=== PATIENT | male | born 1970 | race American Indian/Alaskan Native ===

== ENCOUNTER 2017-01-16 14:20 | Inpatient (IN) | payer MEDICARE, MEDICAID ==
[2017-01-16] MEDS ORDERED: Piperacill/Tazo 3.375gm in Dex 50 ML IVPB STA (14:53)
[2017-01-16] MEDS ORDERED: Vancomycin 1 gm/NS 200 ml 200 ML IVPB STA (14:53)
[2017-01-16] MEDS ORDERED: Sodium Chloride 0.9% 500 ML IV ONE (14:57)
--- NOTE | 2017-01-16 15:14 | RAD ---
HISTORY: Sepsis Patient COMPARISON: None available. TECHNIQUE: Chest, one view. FINDINGS: Right-sided PICC appears to terminate near the cavoatrial junction, distal tip is not well-visualized. External wires and leads obscure evaluation of the underlying parenchyma. LUNGS: Thin oblique linear hyperdensity at the level of the right mid lung zone presumed to reflect artifact. No focal consolidation. Please note that chest x-ray has limited sensitivity for the detection of pulmonary masses. PLEURA: No significant pleural effusion identified. No definite pneumothorax . CARDIOVASCULAR: The cardiomediastinal silhouette appears within normal limits of size. OSSEOUS STRUCTURES: No acute osseous abnormality identified. VISUALIZED UPPER ABDOMEN: Unremarkable. OTHER FINDINGS: None. IMPRESSION: Right-sided PICC as above.
[2017-01-16 15:15] LABS: BASO % 0.7 % (0.0-2.0); EOS % 0.2 % (0.0-4.0); HEMATOCRIT 24.6 % (35.0-51.0); LYMPH # 0.7 K/uL (1.0-4.3); LYMPH % 26.9 % (20.0-40.0); MEAN CORPUSCULAR HEMOGLOBIN 27.6 pg (27.0-31.0); MEAN CORPUSCULAR HGB CONC 32.1 g/dL (33.0-37.0); MEAN PLATELET VOLUME 9.4 fL (7.2-11.7); MONO # 0.5 K/uL (0.0-0.8); MONO % 18.4 % (0.0-10.0); NRBC % 0.2 % (0.0-2.0); PLATELET COUNT 62 K/uL (130-400); RED CELL DISTRIBUTION WIDTH 16.9 % (11.5-14.5)
[2017-01-16 15:19] LABS: WHITE BLOOD COUNT 2.5 K/uL (4.8-10.8)
[2017-01-16] MEDS ORDERED: Piperacillin/Tazobact 3.375 gm 100 ML IVPB ONE (15:21)
[2017-01-16 15:25] LABS: POTASSIUM 3.6 mmol/L (3.6-5.2)
[2017-01-16 15:27] LABS: ALB/GLOB RATIO 0.5 (1.0-2.1); BILIRUBIN,TOTAL 1.8 mg/dL (0.2-1.3); TOTAL PROTEIN 6.8 g/dL (6.3-8.3)
[2017-01-16 15:28] LABS: CALCIUM 9.3 mg/dl (8.6-10.4); MAGNESIUM 1.7 mg/dL (1.6-2.3)
[2017-01-16 15:40] LABS: VENOUS BLOOD GAS BASE EXCESS -3.9 mmol/L (0.0-2.0); VENOUS BLOOD GAS PCO2 36 mmHg (40-60); VENOUS BLOOD PH 7.37 (7.32-7.43)
--- NOTE | 2017-01-16 16:53 | C.PDOC ---
History Of Present Illness 46 year old male was sent to the ED from dialysis without information or history except fever and problem with dialysis catheter. Upon arrival pt noted to have a fever of [address] catheter in place. Time Seen by Provider: 01/16/17 14:38 Chief Complaint (Nursing): Altered Mental Status History/Exam Limitations: Clinical Condition Onset/Duration Of Symptoms: Other (unknown) Onset Of Symptoms: Cannot Confirm Onset Current Symptoms Are (Timing): Still Present Associated Symptoms: Fever, Disoriented Past Medical History Reviewed: Historical Data, Nursing Documentation, Vital Signs Vital Signs: Last Vital Signs Temp 100.4 F H 01/16/17 18:39 Pulse 115 H 01/16/17 16:39 Resp 115 H 01/16/17 18:39 BP 123/66 01/16/17 18:39 Pulse Ox 100 01/16/17 18:39 - Medical History PMH: Hepatitis, HTN, End Stage Renal Disease (TTHS) Other PMH: Cath Related Sepsis, Endocarditis Family History: States: Unknown Family Hx Review Of Systems Review Of Systems: ROS cannot be obtained secondary to pt's inabilty to answer questions. Physical Exam - Physical Exam Appears: Chronically Ill Skin: Warm, Dry Oral Mucosa: Dry Cardiovascular: Rhythm Regular, No Murmur Respiratory: No Rales, No Rhonchi, No Wheezing Gastrointestinal/Abdominal: Soft, No Tenderness, No Guarding, No Rebound Male Genital: No Inguinal Tenderness, No Inguinal Swelling, Other (dialysis catheter in right groin) Extremity: Normal ROM, Other (pick line in right antecubital fossa) Disoriented To: Person, Place, Time Other Neurological Findings: Other (no focal findings) ED Course And Treatment - Laboratory Results Result Diagrams: 01/16/17 15:09 01/16/17 15:09 ECG Rhythm: Sinus Tachycardia (118), R BBB O2 Sat by Pulse Oximetry: 97 - Radiology CXR: Interpreted by Me CXR Interpretation: No: Infiltrates Progress Note: Sepsis screening lab ordered, patient cultured, and started on zosyn and vancomycin Medical Decision Making Medical Decision Making: intermediate requested to fax pt records but did not Lactate not elevated, but labs showing pancytopenia Case discussed with dr Kerry Patel (renal) Additional past hx provided, Pt had been given vanco and gent at the end of dialysis after cultures. Dr Jono Munguia is his PCP Case discussed with him admission aranged Disposition - Disposition Disposition: HOSPITALIZED Disposition Time: 17:08 Condition: SERIOUS - Clinical Impression Clinical Impression: Fever, ESRD (end stage renal disease) - Scribe Statement The provider has reviewed the documentation as recorded by the Scribjames Martinez All medical record entries made by the Dianneibjames were at my direction and personally dictated by me. I have reviewed the chart and agree that the record accurately reflects my personal performance of the history, physical exam, medical decision making, and the department course for this patient. I have also personally directed, reviewed, and agree with the discharge instructions and disposition.
[2017-01-16 17:05] LABS: BASOPHIL 1 % (0-2); EOSINOPHIL 1 % (0-4); NEUTROPHIL 52 % (50-75); TOTAL CELLS COUNTED 100
[2017-01-17] MEDS: Piperacillin/Tazobact 3.375 gm 100 ML IVPB SCH ×3 (02:37→17:52)
[2017-01-17] MEDS: Levothyroxine 50 MCG TAB PO SCH (05:52)
[2017-01-17] MEDS: (Novolog) Insulin Aspart, Recombinant 100 u/ml 10 ml vial SC SCH ×4 (08:11→21:32)
--- NOTE | 2017-01-17 09:29 | CP.PCM.HP ---
History of Present Illness - History of Present Illness History of Present Illness: 46-year-old male with history of hepatitis, hypertension and ESRD presented to the ED from HD, complaint of his dialysis catheter being dislodged as per [facility] staff. Patient has slow response time and is a poor historian. The catheter was placed in his right groin in December 2016 and he has experienced no problem with it since its insertion. He currently also has an AV shunting his left arm that was placed in October 2016.Today, though patient is concerned that catheter has been dislodged, he has no complaints of pain, swelling or oozing from the site. Dialysis catheter is in place and functioning, however, stay sutures were draped out. New once were applied, currently catheter is in place by sutures, dressings are c/d/i. Patient does complaints of intense shoulder pain, unrelated to his catheter. Patient denies abdominal pain, fever/chills, nausea and vomiting. Present on Admission - Present on Admission Any Indicators Present on Admission: No Past Patient History - Past Social History Smoking Status: Unknown If Ever Smoked - CARDIAC Hx Hypertension: Yes - ENDOCRINE/METABOLIC Hx Diabetes Mellitus Type 2: Yes - MUSCULOSKELETAL/RHEUMATOLOGICAL Hx Falls: No - PSYCHIATRIC Hx Substance Use: No - SURGICAL HISTORY Other/Comment: RIGHT ARM PICC, RIGHT GROIN PERMA CATH Meds Home Medications: Home Medication List Medication Instructions Recorded Confirmed Type Acetaminophen [Tylenol 325mg tab] 650 mg PO Q6 PRN tab 01/28/17 Rx Ammonium Lactate 12% [Lac-Hydrin 225 gm EXT DAILY bottle 01/28/17 Rx 12% Lotion (225 g)] Docusate [Colace] 100 mg PO BID cap 01/28/17 Rx Epoetin Andrés [Procrit] 20,000 unit IV TTS ml 01/28/17 Rx Famotidine [Pepcid] 20 mg PO BID tab 01/28/17 Rx Ferric Sodium Gluconat Complex 125 mg IVPB TTS vial 01/28/17 Rx [Ferrlecit] Insulin Aspart, Recombinant See Protocol SC ACHS unit 01/28/17 Rx [Novolog] Levothyroxine [Synthroid] 75 mcg PO DAILY@0630 tab 01/28/17 Rx Metoclopramide [Reglan] 10 mg PO Q6H PRN tab 01/28/17 Rx Morphine 2 mg IVP Q4 PRN 01/28/17 Rx Ondansetron [Zofran Inj] 4 mg IVP Q6H PRN vial 01/28/17 Rx Paricalcitol [Zemplar] 2 mcg IV TTS ml 01/28/17 Rx Saccharomyces Boulardi [Florastor] 250 mg PO BID cap 01/28/17 Rx Sucralfate [Carafate Tab] 1 gm PO Q8H tab 01/28/17 Rx Tigecycline [Tygacil] 50 mg IV Q12H vial 01/28/17 Rx Vitamin B Complex/Vit C/Folic 1 tab PO DAILY tab 01/28/17 Rx [Nephro-Vladislav] amLODIPine [Norvasc] 5 mg PO DAILY tab 01/28/17 Rx Allergies/Adverse Reactions: Allergies Allergy/AdvReac Type Severity Reaction Status Date / Time No Known Allergies Allergy Verified 01/16/17 14:31 Results - Vital Signs Recent Vital Signs: Last Vital Signs Temp 98.1 F 01/17/17 08:14 Pulse 101 H 01/17/17 08:14 Resp 20 01/17/17 08:14 BP 137/74 01/17/17 08:14 Pulse Ox 100 01/17/17 08:14 - Labs Result Diagrams: 01/29/17 07:20 01/29/17 07:20 Labs: Laboratory Results - last 24 hr 01/17/17 07:09 POC Glucose (mg/dL) 76 Assessment & Plan (1) Coagulopathy Status: Acute (2) Diabetes Status: Acute (3) Fever Status: Acute (4) HTN (hypertension) Status: Acute (5) Hypothyroidism Status: Acute (6) Pancytopenia Status: Acute (7) Prophylactic measure Status: Acute (8) ESRD (end stage renal disease) Status: Chronic (9) HIV antibody positive Status: Suspected - Assessment and Plan (Free Text) Plan: Consult nephrology Consult ID Continue ST Norvasc Heparin Dilaudid Pipercillin Sod/tazobactam Vancomycin NovoLog Synthroid Protonix
[2017-01-17] MEDS: Saccharomyces Boulardi 250 mg Cap PO SCH ×2 (09:42→17:38)
[2017-01-17] MEDS: Multivitamin Vitamin B Complex (Nephro-Vite) Tab PO SCH (09:42)
[2017-01-17] MEDS: Multiple Vitamins Tab PO SCH (09:43)
[2017-01-17] MEDS: Pantoprazole 40 mg EC Tab PO SCH (09:43)
[2017-01-17] MEDS ORDERED: Lidocaine 1% PF (5ml) Amp INJ ONE (12:00)
--- NOTE | 2017-01-17 12:34 | CP.PCM.CON ---
History of Present Illness - History of Present Illness History of Present Illness: 46 yo male with a history of hepatitis, HTN and ESRD presented to the ED from HD , c/o his dialysis catheter being dislodged as per HD staff. Pt has slow response time and is a poor historian. The catheter was placed in his right groin in December 2016 and he has experienced no problems with it since its insertion. He currently also has an AV shuntin his left arm that was placed in October 2016. Today, though Pt is concerned that catheter has been dislodged, he has no complaints of pain, swelling or oozing from the site. Dialysis catheter is in place and functioning, however, stay sutures we ripped out. New ones were applied, currently catheter is in place by sutures, dressings are c/d/ i. Pt does complains of intense shoulder pain, unrelated to his catheter. Pt denies abdominal pain, fever/chills, nausea and vomiting. PMHx: hepatitis, HTN, ESRD (TTHS), endocarditis PSH: AV fistula, groin catheter placement Allergies: NKDA Review of Systems - Review of Systems All systems: reviewed and no additional remarkable complaints except Review of Systems: as per HPI - Constitutional Constitutional: As Per HPI Past Patient History - Past Social History Smoking Status: Unknown If Ever Smoked - CARDIAC Hx Hypertension: Yes - ENDOCRINE/METABOLIC Hx Diabetes Mellitus Type 2: Yes - MUSCULOSKELETAL/RHEUMATOLOGICAL Hx Falls: No - PSYCHIATRIC Hx Substance Use: No - SURGICAL HISTORY Other/Comment: RIGHT ARM PICC, RIGHT GROIN PERMA CATH Meds Allergies/Adverse Reactions: Allergies Allergy/AdvReac Type Severity Reaction Status Date / Time No Known Allergies Allergy Verified 01/16/17 14:31 - Medications Medications: Current Medications Acetaminophen (Tylenol 325mg Tab) 650 mg PO Q6 PRN PRN Reason: Fever >100.4 F Amlodipine Besylate (Norvasc) 5 mg PO DAILY [facility] Last Admin: 01/17/17 09:44 Dose: 5 mg Heparin Sodium (Porcine) (Heparin) 5,000 units SC BID IVÁN Last Admin: 01/17/17 09:44 Dose: 5,000 units Hydromorphone HCl (Dilaudid) 2 mg PO Q4H PRN PRN Reason: Pain, severe (8-10) Last Admin: 01/17/17 09:43 Dose: 2 mg Piperacillin Sod/Tazobactam Sod (Zosyn 3.375 In Ns 100ml) 100 mls @ 100 mls/hr IVPB Q8H [facility] Last Admin: 01/17/17 09:41 Dose: 100 mls/hr Vancomycin HCl 1 gm/ Sodium (Chloride) 250 mls @ 166.7 mls/hr IVPB DIAL PRN Insulin Aspart (Novolog) 0 unit SC ACHS IVÁN PRN Reason: Protocol Last Admin: 01/17/17 11:45 Dose: Not Given Lactic Acid (Lac-Hydrin 12% Lotion (225 G)) 0 gm EXT DAILY [facility] Levothyroxine Sodium (Synthroid) 50 mcg PO DAILY@0630 [facility] Last Admin: 01/17/17 05:52 Dose: 50 mcg Metoclopramide HCl (Reglan) 10 mg PO Q6H PRN PRN Reason: Nausea/Vomiting Last Admin: 01/17/17 09:42 Dose: 10 mg Multivitamins (Hexavitamin) 1 tab PO DAILY [facility] Last Admin: 01/17/17 09:43 Dose: 1 tab Pantoprazole Sodium (Protonix Ec Tab) 40 mg PO DAILY [facility] Last Admin: 01/17/17 09:43 Dose: 40 mg Pneumococcal Polyvalent Vaccine (Pneumovax 23 Vaccine) 0.5 ml IM .ONCE ONE Stop: 01/19/17 10:01 Saccharomyces Boulardii (Florastor) 250 mg PO BID [facility] Last Admin: 01/17/17 09:42 Dose: 250 mg Sucralfate (Carafate Tab) 1 gm PO Q8H [facility] Last Admin: 01/17/17 09:42 Dose: 1 gm Vitamin B Complex/Vit C/Folic Acid (Nephro-Vladislav) 1 tab PO DAILY [facility] Last Admin: 01/17/17 09:42 Dose: 1 tab Physical Exam - Constitutional Appears: Non-toxic, No Acute Distress - Head Exam Head Exam: ATRAUMATIC, NORMOCEPHALIC - Eye Exam Eye Exam: EOMI. absent: Scleral icterus Pupil Exam: absent: Fixed, Irregular - Respiratory Exam Respiratory Exam: NORMAL BREATHING PATTERN. absent: Respiratory Distress - Cardiovascular Exam Cardiovascular Exam: +S1, +S2. absent: JVD - GI/Abdominal Exam GI & Abdominal Exam: absent: Distended, Firm, Guarding, Rigid - Extremities Exam Extremities exam: Positive for: tenderness. Negative for: pedal edema Additional comments: Groin catheter in place and functional. Sutures had come loose. - Neurological Exam Neurological exam: Alert Additional comments: pt slow to respond during history and physical - Psychiatric Exam Psychiatric exam: Normal Mood - Skin Skin Exam: Dry, Warm Results - Vital Signs Recent Vital Signs: Last Vital Signs Temp 98.1 F 01/17/17 08:14 Pulse 101 H 01/17/17 08:14 Resp 20 01/17/17 08:14 BP 137/74 01/17/17 08:14 Pulse Ox 100 01/17/17 08:14 - Labs Result Diagrams: 01/16/17 15:09 01/16/17 15:09 Labs: Laboratory Results - last 24 hr 01/17/17 01/17/17 07:09 11:23 POC Glucose (mg/dL) 76 94 Assessment & Plan - Assessment and Plan (Free Text) Assessment: 46M c/o displaced right femoral catheter - replace sutures around catheter - c/w abx - continue HD -AV shunt site ok to use for hemodialysis - Pt S&E with Dr. Aviles
[2017-01-17] MEDS ORDERED: Lidocaine 1% Inj (20ml) INJ ONE (13:00)
[2017-01-17] MEDS: Ammonium Lactate 12% Lotion (225 g) EXT SCH (14:05)
[2017-01-18] MEDS: Piperacillin/Tazobact 3.375 gm 100 ML IVPB SCH ×2 (02:23→10:22)
[2017-01-18] MEDS: Levothyroxine 50 MCG TAB PO SCH (06:22)
--- NOTE | 2017-01-18 07:09 | CP.PCM.PN ---
Subjective - Date & Time of Evaluation Date of Evaluation: 01/18/17 Time of Evaluation: 10:35 - Subjective Subjective: Dr. Munguia service: Patient seen and examined in room. Patient reports coming to the ED on Wednesday because he was developing a fever while in dialysis. He says he did not feel he was having a fever before then. He is asking if he has an infection. He denies having any pain, nausea, vomiting, chest pain, shortness of breath, cough. He says he still makes urine but has problems with urinary incontinence. Objective - Vital Signs/Intake and Output Vital Signs (last 24 hours): Temp Pulse Resp BP Pulse Ox 97.7 F 80 20 132/80 98 01/18/17 00:05 01/18/17 00:05 01/18/17 00:05 01/18/17 00:05 01/18/17 00:05 Intake and Output: 01/18/17 01/18/17 06:59 18:59 Intake Total 300 Balance 300 - Medications Medications: Current Medications Acetaminophen (Tylenol 325mg Tab) 650 mg PO Q6 PRN PRN Reason: Fever >100.4 F Amlodipine Besylate (Norvasc) 5 mg PO DAILY [facility] Last Admin: 01/17/17 09:44 Dose: 5 mg Heparin Sodium (Porcine) (Heparin) 5,000 units SC BID [facility] Last Admin: 01/17/17 17:38 Dose: 5,000 units Hydromorphone HCl (Dilaudid) 2 mg IVP Q4 PRN PRN Reason: pain Last Admin: 01/18/17 06:32 Dose: 2 mg Piperacillin Sod/Tazobactam Sod (Zosyn 3.375 In Ns 100ml) 100 mls @ 100 mls/hr IVPB Q8H [facility] Last Admin: 01/18/17 02:23 Dose: 100 mls/hr Vancomycin HCl 1 gm/ Sodium (Chloride) 250 mls @ 166.7 mls/hr IVPB DIAL PRN Insulin Aspart (Novolog) 0 unit SC ACHS IVÁ[facility] PRN Reason: Protocol Last Admin: 01/17/17 21:32 Dose: Not Given Lactic Acid (Lac-Hydrin 12% Lotion (225 G)) 0 gm EXT DAILY [facility] Last Admin: 01/17/17 14:05 Dose: 1 applic Levothyroxine Sodium (Synthroid) 50 mcg PO DAILY@0630 [facility] Last Admin: 01/18/17 06:22 Dose: 50 mcg Metoclopramide HCl (Reglan) 10 mg PO Q6H PRN PRN Reason: Nausea/Vomiting Last Admin: 01/17/17 09:42 Dose: 10 mg Multivitamins (Hexavitamin) 1 tab PO DAILY [facility] Last Admin: 01/17/17 09:43 Dose: 1 tab Pantoprazole Sodium (Protonix Ec Tab) 40 mg PO DAILY [facility] Last Admin: 01/17/17 09:43 Dose: 40 mg Pneumococcal Polyvalent Vaccine (Pneumovax 23 Vaccine) 0.5 ml IM .ONCE ONE Stop: 01/19/17 10:01 Saccharomyces Boulardii (Florastor) 250 mg PO BID [facility] Last Admin: 01/17/17 17:38 Dose: 250 mg Sucralfate (Carafate Tab) 1 gm PO Q8H [facility] Last Admin: 01/18/17 02:24 Dose: 1 gm Vitamin B Complex/Vit C/Folic Acid (Nephro-Vladislav) 1 tab PO DAILY [facility] Last Admin: 01/17/17 09:42 Dose: 1 tab - Constitutional Appears: Chronically Ill - Head Exam Head Exam: NORMAL INSPECTION - Eye Exam Eye Exam: Normal appearance Pupil Exam: NORMAL ACCOMODATION - ENT Exam ENT Exam: Normal Exam - Respiratory Exam Respiratory Exam: Clear to Ausculation Bilateral. absent: Rales, Rhonchi, Wheezes - Cardiovascular Exam Cardiovascular Exam: REGULAR RHYTHM, RRR, +S1, +S2. absent: Gallop, Rubs - GI/Abdominal Exam GI & Abdominal Exam: Soft, Normal Bowel Sounds. absent: Tenderness - Extremities Exam Extremities Exam: Normal Inspection. absent: Pedal Edema - Psychiatric Exam Psychiatric exam: Normal Affect, Normal Mood - Skin Skin Exam: Normal Color Assessment and Plan - Assessment and Plan (Free Text) Assessment: Fever: Patient is Patient on Zyson and Vac IV. Follow up blood cultures, as well as urine (patient still makes urine). HIV HIV screen is positive, follow up viral load and cell count. Pancytopenia Dr. Husain consulted, help appreciated Hyponatremia Na 129, follow up am cmp HTN Norvasc 5mg Hypothryoidism Continue home symthroid DM accu checks sliding scale Prophylatic measure Carafate 1gm q8h pepcid 20mg hold VTE due to thrombocytpenia.
[2017-01-18] MEDS: (Novolog) Insulin Aspart, Recombinant 100 u/ml 10 ml vial SC SCH ×4 (08:14→23:21)
[2017-01-18 09:06] LABS: BASO % 1.3 % (0.0-2.0); EOS # 0.1 K/uL (0.0-0.7); EOS % 4.6 % (0.0-4.0); HEMATOCRIT 21.9 % (35.0-51.0); LYMPH # 0.6 K/uL (1.0-4.3); LYMPH % 29.7 % (20.0-40.0); MEAN CELL VOLUME 85.7 fL (80.0-94.0); MEAN CORPUSCULAR HEMOGLOBIN 28.1 pg (27.0-31.0); MEAN CORPUSCULAR HGB CONC 32.8 g/dL (33.0-37.0); MEAN PLATELET VOLUME 10.7 fL (7.2-11.7); MONO # 0.4 K/uL (0.0-0.8); MONO % 20.5 % (0.0-10.0); NRBC % 0.1 % (0.0-2.0); PLATELET COUNT 56 K/uL (130-400); RED CELL DISTRIBUTION WIDTH 17.1 % (11.5-14.5)
[2017-01-18 09:08] LABS: POTASSIUM 3.8 mmol/L (3.6-5.2)
[2017-01-18 09:10] LABS: BILIRUBIN,TOTAL 1.5 mg/dL (0.2-1.3)
[2017-01-18 09:11] LABS: ALB/GLOB RATIO 0.5 (1.0-2.1); PHOSPHOROUS 5.2 mg/dL (2.5-4.5); TOTAL PROTEIN 6.3 g/dL (6.3-8.3)
[2017-01-18 09:12] LABS: MAGNESIUM 1.9 mg/dL (1.6-2.3)
[2017-01-18] MEDS: Multivitamin Vitamin B Complex (Nephro-Vite) Tab PO SCH (10:08)
[2017-01-18] MEDS: Saccharomyces Boulardi 250 mg Cap PO SCH ×2 (10:08→17:48)
[2017-01-18] MEDS: Pantoprazole 40 mg EC Tab PO SCH (10:08)
[2017-01-18] MEDS: Multiple Vitamins Tab PO SCH (10:08)
[2017-01-18] MEDS: Ammonium Lactate 12% Lotion (225 g) EXT SCH (10:10)
[2017-01-18 10:40] LABS: EOSINOPHIL 8 % (0-4); NEUTROPHIL 44 % (50-75); TOTAL CELLS COUNTED 100
[2017-01-18 12:19] LABS: INR 1.3
--- NOTE | 2017-01-18 12:28 | CP.PCM.CON ---
History of Present Illness - History of Present Illness History of Present Illness: 46 yo male presented to the ED from HD, c/o his dialysis catheter being dislodged . The catheter was placed in his right groin in December 2016 and he has experienced no problems with it since its insertion. He currently also has an AV shuntin his left arm that was placed in October 2016. Today, though Pt is concerned that catheter has been dislodged, he has no complaints of pain, swelling or oozing from the site. Dialysis catheter is in place and functioning , however, stay sutures we ripped out. New ones were applied, currently catheter is in place by sutures, dressings are c/d/i. Pt does complains of intense shoulder pain, unrelated to his catheter. Pt denies abdominal pain, fever/chills, nausea and vomiting. PMHx: hepatitis, HTN, ESRD (TTHS), endocarditis PSH: AV fistula, groin catheter placement Allergies: NKDA Past Patient History - Past Social History Smoking Status: Unknown If Ever Smoked - CARDIAC Hx Hypertension: Yes - ENDOCRINE/METABOLIC Hx Diabetes Mellitus Type 2: Yes - MUSCULOSKELETAL/RHEUMATOLOGICAL Hx Falls: No - PSYCHIATRIC Hx Substance Use: No - SURGICAL HISTORY Other/Comment: RIGHT ARM PICC, RIGHT GROIN PERMA CATH Meds Allergies/Adverse Reactions: Allergies Allergy/AdvReac Type Severity Reaction Status Date / Time No Known Allergies Allergy Verified 01/16/17 14:31 - Medications Medications: Current Medications Acetaminophen (Tylenol 325mg Tab) 650 mg PO Q6 PRN PRN Reason: Fever >100.4 F Amlodipine Besylate (Norvasc) 5 mg PO DAILY [facility] Last Admin: 01/18/17 10:08 Dose: 5 mg Hydromorphone HCl (Dilaudid) 2 mg IVP Q4 PRN PRN Reason: pain Last Admin: 01/18/17 10:06 Dose: 2 mg Piperacillin Sod/Tazobactam Sod (Zosyn 3.375 In Ns 100ml) 100 mls @ 100 mls/hr IVPB Q8H [facility] Last Admin: 01/18/17 10:22 Dose: 100 mls/hr Vancomycin HCl 1 gm/ Sodium (Chloride) 250 mls @ 166.7 mls/hr IVPB DIAL PRN Insulin Aspart (Novolog) 0 unit SC ACHS [facility] PRN Reason: Protocol Last Admin: 01/18/17 11:55 Dose: Not Given Lactic Acid (Lac-Hydrin 12% Lotion (225 G)) 0 gm EXT DAILY [facility] Last Admin: 01/18/17 10:10 Dose: 1 applic Levothyroxine Sodium (Synthroid) 50 mcg PO DAILY@0630 [facility] Last Admin: 01/18/17 06:22 Dose: 50 mcg Metoclopramide HCl (Reglan) 10 mg PO Q6H PRN PRN Reason: Nausea/Vomiting Last Admin: 01/17/17 09:42 Dose: 10 mg Multivitamins (Hexavitamin) 1 tab PO DAILY [facility] Last Admin: 01/18/17 10:08 Dose: 1 tab Pantoprazole Sodium (Protonix Ec Tab) 40 mg PO DAILY [facility] Last Admin: 01/18/17 10:08 Dose: 40 mg Pneumococcal Polyvalent Vaccine (Pneumovax 23 Vaccine) 0.5 ml IM .ONCE ONE Stop: 01/19/17 10:01 Saccharomyces Boulardii (Florastor) 250 mg PO BID [facility] Last Admin: 01/18/17 10:08 Dose: 250 mg Sucralfate (Carafate Tab) 1 gm PO Q8H [facility] Last Admin: 01/18/17 10:22 Dose: 1 gm Vitamin B Complex/Vit C/Folic Acid (Nephro-Vladislav) 1 tab PO DAILY [facility] Last Admin: 01/18/17 10:08 Dose: 1 tab Results - Vital Signs Recent Vital Signs: Last Vital Signs Temp 97.6 F 01/18/17 08:00 Pulse 80 01/18/17 08:00 Resp 20 01/18/17 08:00 BP 121/77 01/18/17 08:00 Pulse Ox 99 01/18/17 08:00 - Labs Result Diagrams: 01/18/17 08:56 01/18/17 08:56 Labs: Laboratory Results - last 24 hr 01/17/17 01/17/17 01/18/17 16:15 21:30 06:47 WBC RBC Hgb Hct MCV MCH MCHC RDW Plt Count MPV Neut % (Auto) Lymph % (Auto) [place] % (Auto) Eos % (Auto) Baso % (Auto) Neut # Lymph # [place] # Eos # Baso # Neutrophils % (Manual) Band Neutrophils % Lymphocytes % (Manual) Monocytes % (Manual) Eosinophils % (Manual) Platelet Estimate Poikilocytosis (manual Basophilic Stippling Anisocytosis (manual) Tear Drop Cells PT INR APTT Fibrinogen Sodium Potassium Chloride Carbon Dioxide Anion Gap BUN Creatinine Est GFR ( Amer) Est GFR (Non-Af Amer) POC Glucose (mg/dL) 88 85 85 Random Glucose Calcium Phosphorus Magnesium Total Bilirubin AST ALT Alkaline Phosphatase Total Protein Albumin Globulin Albumin/Globulin Ratio Hep Bs Antigen Hep B Core IgM Ab 01/18/17 01/18/17 01/18/17 08:56 11:24 11:27 WBC 2.0 L* RBC 2.55 L Hgb 7.2 L Hct 21.9 L MCV 85.7 MCH 28.1 MCHC 32.8 L RDW 17.1 H Plt Count 56 L MPV 10.7 Neut % (Auto) 43.9 L Lymph % (Auto) 29.7 [place] % (Auto) 20.5 H Eos % (Auto) 4.6 H Baso % (Auto) 1.3 Neut # 0.9 L Lymph # 0.6 L [place] # 0.4 Eos # 0.1 Baso # 0.0 Neutrophils % (Manual) 44 L Band Neutrophils % 8 H Lymphocytes % (Manual) 26 Monocytes % (Manual) 14 H Eosinophils % (Manual) 8 H Platelet Estimate Decreased L Poikilocytosis (manual Slight Basophilic Stippling Slight Anisocytosis (manual) Slight Tear Drop Cells Slight PT 14.6 H INR 1.3 APTT 55 H Fibrinogen 113 L Sodium 129 L Potassium 3.8 Chloride 95 L Carbon Dioxide 25 Anion Gap 13 BUN 21 H Creatinine 6.4 H Est GFR ( Amer) 11 Est GFR (Non-Af Amer) 9 POC Glucose (mg/dL) 103 Random Glucose 77 Calcium 10.0 Phosphorus 5.2 H Magnesium 1.9 Total Bilirubin 1.5 H AST 131 H ALT 47 Alkaline Phosphatase 397 H D Total Protein 6.3 Albumin 2.2 L Globulin 4.1 H Albumin/Globulin Ratio 0.5 L Hep Bs Antigen Negative Hep B Core IgM Ab Negative
[2017-01-18 12:47] LABS: FDP INTERPRETATION POSITIVE (NEGATIVE); FDP QUANTITY >10<40 ug/mL (<10)
--- NOTE | 2017-01-18 12:47 | CARD ---
APPROVED REPORT EKG Measurement Heart [id number] <Conclusion> Wide QRS rhythm Right bundle branch block Left posterior fascicular block Bifascicular block Septal infarct, age undetermined Abnormal ECG
--- NOTE | 2017-01-18 16:11 | CP.PCM.PCO ---
Physician Communication Note - Physician Communication Note Physician Communication Note: no further surgical intervention. AVF good to use.
[2017-01-18] MEDS: Piperacill/Tazo 2.25gm in Dex 50 ML IVPB SCH (18:11)
--- NOTE | 2017-01-18 20:22 | CP.PCM.CON ---
History of Present Illness - History of Present Illness History of Present Illness: pt seen and examined, full consult is dictated #[id number] s/p fever r/o sepsis for hd in am f/u blood c/s from HD unit s/p hellen and mayco in the HD unit on wednesday prior to send him to ER Past Patient History - Past Social History Smoking Status: Unknown If Ever Smoked - CARDIAC Hx Hypertension: Yes - ENDOCRINE/METABOLIC Hx Diabetes Mellitus Type 2: Yes - MUSCULOSKELETAL/RHEUMATOLOGICAL Hx Falls: No - PSYCHIATRIC Hx Substance Use: No - SURGICAL HISTORY Other/Comment: RIGHT ARM PICC, RIGHT GROIN PERMA CATH Meds Allergies/Adverse Reactions: Allergies Allergy/AdvReac Type Severity Reaction Status Date / Time No Known Allergies Allergy Verified 01/16/17 14:31 - Medications Medications: Current Medications Acetaminophen (Tylenol 325mg Tab) 650 mg PO Q6 PRN PRN Reason: Fever >100.4 F Amlodipine Besylate (Norvasc) 5 mg PO DAILY [facility] Last Admin: 01/18/17 10:08 Dose: 5 mg Hydromorphone HCl (Dilaudid) 2 mg IVP Q4 PRN PRN Reason: pain Last Admin: 01/18/17 20:04 Dose: 2 mg Vancomycin HCl 1 gm/ Sodium (Chloride) 250 mls @ 166.7 mls/hr IVPB DIAL PRN Piperacillin Sod/Tazobactam Sod (Zosyn 2.25 Gm Iv Premix) 50 mls @ 100 mls/hr IVPB Q8H [facility] Last Admin: 01/18/17 18:11 Dose: 100 mls/hr Insulin Aspart (Novolog) 0 unit SC ACHS IVÁN PRN Reason: Protocol Last Admin: 01/18/17 17:50 Dose: Not Given Lactic Acid (Lac-Hydrin 12% Lotion (225 G)) 0 gm EXT DAILY [facility] Last Admin: 01/18/17 10:10 Dose: 1 applic Levothyroxine Sodium (Synthroid) 50 mcg PO DAILY@0630 [facility] Last Admin: 01/18/17 06:22 Dose: 50 mcg Metoclopramide HCl (Reglan) 10 mg PO Q6H PRN PRN Reason: Nausea/Vomiting Last Admin: 01/17/17 09:42 Dose: 10 mg Multivitamins (Hexavitamin) 1 tab PO DAILY [facility] Last Admin: 01/18/17 10:08 Dose: 1 tab Pantoprazole Sodium (Protonix Ec Tab) 40 mg PO DAILY [facility] Last Admin: 01/18/17 10:08 Dose: 40 mg Pneumococcal Polyvalent Vaccine (Pneumovax 23 Vaccine) 0.5 ml IM .ONCE ONE Stop: 01/19/17 10:01 Saccharomyces Boulardii (Florastor) 250 mg PO BID [facility] Last Admin: 01/18/17 17:48 Dose: 250 mg Sucralfate (Carafate Tab) 1 gm PO Q8H [facility] Last Admin: 01/18/17 17:46 Dose: 1 gm Vitamin B Complex/Vit C/Folic Acid (Nephro-Vladislav) 1 tab PO DAILY [facility] Last Admin: 01/18/17 10:08 Dose: 1 tab Results - Vital Signs Recent Vital Signs: Last Vital Signs Temp 97.8 F 01/18/17 16:00 Pulse 78 01/18/17 16:00 Resp 20 01/18/17 16:00 BP 125/80 01/18/17 16:00 Pulse Ox 100 01/18/17 16:00 - Labs Result Diagrams: 01/18/17 08:56 01/18/17 08:56 Labs: Laboratory Results - last 24 hr 01/17/17 01/18/17 01/18/17 21:30 06:47 08:56 WBC 2.0 L* RBC 2.55 L Hgb 7.2 L Hct 21.9 L MCV 85.7 MCH 28.1 MCHC 32.8 L RDW 17.1 H Plt Count 56 L MPV 10.7 Neut % (Auto) 43.9 L Lymph % (Auto) 29.7 Bureau % (Auto) 20.5 H Eos % (Auto) 4.6 H Baso % (Auto) 1.3 Neut # 0.9 L Lymph # 0.6 L Bureau # 0.4 Eos # 0.1 Baso # 0.0 Neutrophils % (Manual) 44 L Band Neutrophils % 8 H Lymphocytes % (Manual) 26 Monocytes % (Manual) 14 H Eosinophils % (Manual) 8 H Platelet Estimate Decreased L Poikilocytosis (manual Slight Basophilic Stippling Slight Anisocytosis (manual) Slight Tear Drop Cells Slight PT INR APTT Fibrinogen Fibrin Degrad Products Fibrin Degrad Prod, Qt Sodium 129 L Potassium 3.8 Chloride 95 L Carbon Dioxide 25 Anion Gap 13 BUN 21 H Creatinine 6.4 H Est GFR ( Amer) 11 Est GFR (Non-Af Amer) 9 POC Glucose (mg/dL) 85 85 Random Glucose 77 Calcium 10.0 Phosphorus 5.2 H Magnesium 1.9 Total Bilirubin 1.5 H AST 131 H ALT 47 Alkaline Phosphatase 397 H D Total Protein 6.3 Albumin 2.2 L Globulin 4.1 H Albumin/Globulin Ratio 0.5 L Hepatitis A IgM Ab Hep Bs Antigen Hep B Core IgM Ab Hepatitis C Antibody HIV 1&2 Antibody Screen 01/18/17 01/18/17 01/18/17 11:24 11:27 12:19 WBC RBC Hgb Hct MCV MCH MCHC RDW Plt Count MPV Neut % (Auto) Lymph % (Auto) Bureau % (Auto) Eos % (Auto) Baso % (Auto) Neut # Lymph # Bureau # Eos # Baso # Neutrophils % (Manual) Band Neutrophils % Lymphocytes % (Manual) Monocytes % (Manual) Eosinophils % (Manual) Platelet Estimate Poikilocytosis (manual Basophilic Stippling Anisocytosis (manual) Tear Drop Cells PT 14.6 H INR 1.3 APTT 55 H Fibrinogen 113 L Fibrin Degrad Products Positive H Fibrin Degrad Prod, Qt >10<40 H Sodium Potassium Chloride Carbon Dioxide Anion Gap BUN Creatinine Est GFR ( Amer) Est GFR (Non-Af Amer) POC Glucose (mg/dL) 103 Random Glucose Calcium Phosphorus Magnesium Total Bilirubin AST ALT Alkaline Phosphatase Total Protein Albumin Globulin Albumin/Globulin Ratio Hepatitis A IgM Ab Reactive H Hep Bs Antigen Negative Hep B Core IgM Ab Negative Hepatitis C Antibody Negative HIV 1&2 Antibody Screen Reactive H 01/18/17 17:10 WBC RBC Hgb Hct MCV MCH MCHC RDW Plt Count MPV Neut % (Auto) Lymph % (Auto) Bureau % (Auto) Eos % (Auto) Baso % (Auto) Neut # Lymph # Bureau # Eos # Baso # Neutrophils % (Manual) Band Neutrophils % Lymphocytes % (Manual) Monocytes % (Manual) Eosinophils % (Manual) Platelet Estimate Poikilocytosis (manual Basophilic Stippling Anisocytosis (manual) Tear Drop Cells PT INR APTT Fibrinogen Fibrin Degrad Products Fibrin Degrad Prod, Qt Sodium Potassium Chloride Carbon Dioxide Anion Gap BUN Creatinine Est GFR ( Amer) Est GFR (Non-Af Amer) POC Glucose (mg/dL) 93 Random Glucose Calcium Phosphorus Magnesium Total Bilirubin AST ALT Alkaline Phosphatase Total Protein Albumin Globulin Albumin/Globulin Ratio Hepatitis A IgM Ab Hep Bs Antigen Hep B Core IgM Ab Hepatitis C Antibody HIV 1&2 Antibody Screen
--- NOTE | 2017-01-18 22:19 | CP.PCM.CON ---
History of Present Illness - History of Present Illness History of Present Illness: 46 year old male with a history of HTN, ESRD on HD sent from dialysis for problem with dialysis access, noted to be febrile and pancytopenic. The patient is not clear about his medical history but notes he had a bone infection and hepatitis in the past. He denies abnormal bleeding and bruising. He is unaware of having low blood counts in the past. Review of his blood work shows reactive HIV Ab and hepatitis A IgM antibody Past medical history: HTN, ESRD on HD, ?hepatitis, ?osteomylitis Past surgical history: ?bone surgery Family history: Denies hematologic and oncologic problems Social history: Denies tobacco, alcohol, and illicit drug use. Allergies: NKA Review of systems: All remaining review of systems including HEENT, cardiovascular, respiratory, gatrointestinal, genitourinary, musculoskeletal, dermatologic, neurologic, and psychiatric are negative unless mentioned in the HPI. Past Patient History - Past Social History Smoking Status: Unknown If Ever Smoked - CARDIAC Hx Hypertension: Yes - ENDOCRINE/METABOLIC Hx Diabetes Mellitus Type 2: Yes - MUSCULOSKELETAL/RHEUMATOLOGICAL Hx Falls: No - PSYCHIATRIC Hx Substance Use: No - SURGICAL HISTORY Other/Comment: RIGHT ARM PICC, RIGHT GROIN PERMA CATH Meds Allergies/Adverse Reactions: Allergies Allergy/AdvReac Type Severity Reaction Status Date / Time No Known Allergies Allergy Verified 01/16/17 14:31 - Medications Medications: Current Medications Acetaminophen (Tylenol 325mg Tab) 650 mg PO Q6 PRN PRN Reason: Fever >100.4 F Amlodipine Besylate (Norvasc) 5 mg PO DAILY [facility] Last Admin: 01/18/17 10:08 Dose: 5 mg Famotidine (Pepcid) 20 mg PO DAILY [facility] Hydromorphone HCl (Dilaudid) 2 mg IVP Q4 PRN PRN Reason: pain Last Admin: 01/18/17 20:04 Dose: 2 mg Vancomycin HCl 1 gm/ Sodium (Chloride) 250 mls @ 166.7 mls/hr IVPB DIAL PRN Piperacillin Sod/Tazobactam Sod (Zosyn 2.25 Gm Iv Premix) 50 mls @ 100 mls/hr IVPB Q8H [facility] Last Admin: 01/18/17 18:11 Dose: 100 mls/hr Insulin Aspart (Novolog) 0 unit SC ACHS IVÁN PRN Reason: Protocol Last Admin: 01/18/17 17:50 Dose: Not Given Lactic Acid (Lac-Hydrin 12% Lotion (225 G)) 0 gm EXT DAILY [facility] Last Admin: 01/18/17 10:10 Dose: 1 applic Levothyroxine Sodium (Synthroid) 50 mcg PO DAILY@0630 [facility] Last Admin: 01/18/17 06:22 Dose: 50 mcg Metoclopramide HCl (Reglan) 10 mg PO Q6H PRN PRN Reason: Nausea/Vomiting Last Admin: 01/17/17 09:42 Dose: 10 mg Multivitamins (Hexavitamin) 1 tab PO DAILY [facility] Last Admin: 01/18/17 10:08 Dose: 1 tab Pneumococcal Polyvalent Vaccine (Pneumovax 23 Vaccine) 0.5 ml IM .ONCE ONE Stop: 01/19/17 10:01 Saccharomyces Boulardii (Florastor) 250 mg PO BID [facility] Last Admin: 01/18/17 17:48 Dose: 250 mg Sucralfate (Carafate Tab) 1 gm PO Q8H [facility] Last Admin: 01/18/17 17:46 Dose: 1 gm Vitamin B Complex/Vit C/Folic Acid (Nephro-Vladislav) 1 tab PO DAILY [facility] Last Admin: 01/18/17 10:08 Dose: 1 tab Physical Exam - Head Exam Head Exam: ATRAUMATIC - Eye Exam Eye Exam: Normal appearance - ENT Exam ENT Exam: Mucous Membranes Dry - Respiratory Exam Respiratory Exam: NORMAL BREATHING PATTERN - Cardiovascular Exam Cardiovascular Exam: +S1, +S2 - GI/Abdominal Exam GI & Abdominal Exam: Normal Bowel Sounds - Extremities Exam Extremities exam: Positive for: pedal edema - Neurological Exam Neurological exam: Oriented x3 - Psychiatric Exam Psychiatric exam: Normal Affect, Normal Mood - Skin Skin Exam: Warm Results - Vital Signs Recent Vital Signs: Last Vital Signs Temp 97.8 F 01/18/17 16:00 Pulse 78 01/18/17 16:00 Resp 20 01/18/17 16:00 BP 125/80 01/18/17 16:00 Pulse Ox 100 01/18/17 16:00 - Labs Result Diagrams: 01/19/17 06:50 01/19/17 06:50 Labs: Laboratory Results - last 24 hr 01/18/17 01/18/17 01/18/17 06:47 08:56 11:24 WBC 2.0 L* RBC 2.55 L Hgb 7.2 L Hct 21.9 L MCV 85.7 MCH 28.1 MCHC 32.8 L RDW 17.1 H Plt Count 56 L MPV 10.7 Neut % (Auto) 43.9 L Lymph % (Auto) 29.7 Leslie % (Auto) 20.5 H Eos % (Auto) 4.6 H Baso % (Auto) 1.3 Neut # 0.9 L Lymph # 0.6 L Leslie # 0.4 Eos # 0.1 Baso # 0.0 Neutrophils % (Manual) 44 L Band Neutrophils % 8 H Lymphocytes % (Manual) 26 Monocytes % (Manual) 14 H Eosinophils % (Manual) 8 H Platelet Estimate Decreased L Poikilocytosis (manual Slight Basophilic Stippling Slight Anisocytosis (manual) Slight Tear Drop Cells Slight PT INR APTT Fibrinogen Fibrin Degrad Products Fibrin Degrad Prod, Qt Sodium 129 L Potassium 3.8 Chloride 95 L Carbon Dioxide 25 Anion Gap 13 BUN 21 H Creatinine 6.4 H Est GFR ( Amer) 11 Est GFR (Non-Af Amer) 9 POC Glucose (mg/dL) 85 103 Random Glucose 77 Calcium 10.0 Phosphorus 5.2 H Magnesium 1.9 Total Bilirubin 1.5 H AST 131 H ALT 47 Alkaline Phosphatase 397 H D Total Protein 6.3 Albumin 2.2 L Globulin 4.1 H Albumin/Globulin Ratio 0.5 L Hepatitis A IgM Ab Hep Bs Antigen Hep B Core IgM Ab Hepatitis C Antibody HIV 1&2 Antibody Screen 01/18/17 01/18/17 01/18/17 11:27 12:19 17:10 WBC RBC Hgb Hct MCV MCH MCHC RDW Plt Count MPV Neut % (Auto) Lymph % (Auto) Leslie % (Auto) Eos % (Auto) Baso % (Auto) Neut # Lymph # Leslie # Eos # Baso # Neutrophils % (Manual) Band Neutrophils % Lymphocytes % (Manual) Monocytes % (Manual) Eosinophils % (Manual) Platelet Estimate Poikilocytosis (manual Basophilic Stippling Anisocytosis (manual) Tear Drop Cells PT 14.6 H INR 1.3 APTT 55 H Fibrinogen 113 L Fibrin Degrad Products Positive H Fibrin Degrad Prod, Qt >10<40 H Sodium Potassium Chloride Carbon Dioxide Anion Gap BUN Creatinine Est GFR ( Amer) Est GFR (Non-Af Amer) POC Glucose (mg/dL) 93 Random Glucose Calcium Phosphorus Magnesium Total Bilirubin AST ALT Alkaline Phosphatase Total Protein Albumin Globulin Albumin/Globulin Ratio Hepatitis A IgM Ab Reactive H Hep Bs Antigen Negative Hep B Core IgM Ab Negative Hepatitis C Antibody Negative HIV 1&2 Antibody Screen Reactive H 01/18/17 21:54 WBC RBC Hgb Hct MCV MCH MCHC RDW Plt Count MPV Neut % (Auto) Lymph % (Auto) Leslie % (Auto) Eos % (Auto) Baso % (Auto) Neut # Lymph # Leslie # Eos # Baso # Neutrophils % (Manual) Band Neutrophils % Lymphocytes % (Manual) Monocytes % (Manual) Eosinophils % (Manual) Platelet Estimate Poikilocytosis (manual Basophilic Stippling Anisocytosis (manual) Tear Drop Cells PT INR APTT Fibrinogen Fibrin Degrad Products Fibrin Degrad Prod, Qt Sodium Potassium Chloride Carbon Dioxide Anion Gap BUN Creatinine Est GFR ( Amer) Est GFR (Non-Af Amer) POC Glucose (mg/dL) 128 H Random Glucose Calcium Phosphorus Magnesium Total Bilirubin AST ALT Alkaline Phosphatase Total Protein Albumin Globulin Albumin/Globulin Ratio Hepatitis A IgM Ab Hep Bs Antigen Hep B Core IgM Ab Hepatitis C Antibody HIV 1&2 Antibody Screen Assessment & Plan (1) Pancytopenia Assessment and Plan: ? related to acute viral illness the patient will need a bone marrow aspirate and biopsy transfusion support PRN Status: Acute (2) Coagulopathy Assessment and Plan: may be nutritional Thank you for this interesting consult. Status: Acute
[2017-01-18 23:04] LABS: RBC URINE 1 /hpf (0-3); URINE BACTERIA OCC (<OCC); URINE BILIRUBIN NEGATIVE (NEGATIVE); URINE COLOR Yellow (YELLOW); URINE GLUCOSE (UA) NORMAL (Normal); URINE KETONE NEGATIVE (NEGATIVE); URINE LEUKOCYTE ESTERASE NEG Leu/uL (Negative); URINE PROTEIN 2+ mg/dL (NEGATIVE); URINE UROBILINOGEN NORMAL mg/dL (0.2-1.0); WBC URINE 2 /hpf (0-5)
[2017-01-18 23:13] LABS: URINE BLOOD TRACE (NEGATIVE)
[2017-01-19] MEDS: Piperacill/Tazo 2.25gm in Dex 50 ML IVPB SCH ×3 (01:26→17:10)
[2017-01-19] MEDS: Levothyroxine 50 MCG TAB PO SCH (05:43)
[2017-01-19 06:58] LABS: BASO % 0.7 % (0.0-2.0); EOS # 0.1 K/uL (0.0-0.7); EOS % 4.9 % (0.0-4.0); HEMATOCRIT 20.6 % (35.0-51.0); LYMPH # 0.6 K/uL (1.0-4.3); LYMPH % 32.7 % (20.0-40.0); MEAN CELL VOLUME 86.1 fL (80.0-94.0); MEAN CORPUSCULAR HGB CONC 32.6 g/dL (33.0-37.0); MEAN PLATELET VOLUME 8.7 fL (7.2-11.7); MONO # 0.5 K/uL (0.0-0.8); MONO % 24.2 % (0.0-10.0); NRBC % 0.1 % (0.0-2.0); PLATELET COUNT 36 K/uL (130-400); RED CELL DISTRIBUTION WIDTH 17.2 % (11.5-14.5)
[2017-01-19 07:04] LABS: WHITE BLOOD COUNT 1.9 K/uL (4.8-10.8)
[2017-01-19 07:27] LABS: POTASSIUM 3.5 mmol/L (3.6-5.2)
[2017-01-19 07:29] LABS: ALB/GLOB RATIO 0.5 (1.0-2.1); BILIRUBIN,TOTAL 1.1 mg/dL (0.2-1.3)
[2017-01-19 07:30] LABS: CALCIUM 10.1 mg/dl (8.6-10.4); PHOSPHOROUS 4.8 mg/dL (2.5-4.5)
[2017-01-19 07:50] LABS: THYROID STIMULATING HORMONE 8.03 mIU/L (0.46-4.68)
--- NOTE | 2017-01-19 08:23 | CON ---
DATE: 01/18/2017 LOCATION: The patient is located in room 563, bed B. REQUESTING PHYSICIAN: Dr. Willian Munguia. REASON FOR RENAL CONSULTATION: End-stage renal disease, on hemodialysis, for continuation of hemodialysis, fever. HISTORY OF PRESENT ILLNESS: The patient is about [id number] middle-aged -[place] male with a past medical history significant for end-stage renal disease on hemodialysis 3 times a week, bipolar disorder, diabetes, hypertension for a long time, more than 15 years, and with a history of Klebseilla endocarditis of the aortic wall and who was found to have MDR Klebseilla bacteremia on 11/30/2016 and, on 12/03/2016, his blood culture was identified as enterococcus faecium , on multiple antibiotics while being trated at [facility]. The patient was recently transferred from [facility] to [facility] close to his brother's house. The patient was found to have chills and rigors during dialysis on Wednesday and very drowsy. The patient was sent to the Emergency Room for further evaluation after. Received 2 sets of blood culture and also received 1 gram of vancomycin and 200 mg of gentamicin prior to referral to the Emergency Room. The patient is very alert, awake, following commands appropriately. Denies any chest pain, palpitation. Denies any fever or cough. No abdominal pain, no nausea, vomiting , diarrhea. The patient is feeling much better now. PAST MEDICAL HISTORY: Hypertension, diabetes, hyperlipidemia, hypothyroidism, Clostridium difficile colitis, MRSA infection and osteomyelitis, hypothyroidism , diskitis and recently diagnosed aortic valve endocarditis with a MDR Klebsiella and anemia malnutrition and history of blood transfusions, encephalopathy and substance abuse. PAST SURGICAL HISTORY: Right hand abscess and incision and drainage, left arm fistula placement, PICC line placement and right groin femoral vein catheter. ALLERGIES: No known drug allergies. SOCIAL HISTORY: The patient denies any smoking, alcohol use, and has a history of illicit drug abuse. FAMILY HISTORY: His father of cancer. Mother of diabetes and heart disease and pericardial effusion. He is single and no children. He has a brother in [place]. CURRENT MEDICATIONS: Include as follows: Carafate 1 gram p.o. q. 8 hours, Dilaudid 2 mg IV q. 4 hours, Florastor 250 mg p.o. b.i.d., multivitamin 1 tablet daily and Lac-Hydrin daily and Nephro-Vladislav 1 tablet daily, amlodipine 5 mg daily, NovoLog for sliding scale, Pepcid 20 mg p.o. t.i.d., pneumococcal vaccine x 1, Reglan 10 mg p.o. q. 6 hours, Synthroid 50 mcg daily and vancomycin 1 gram IV piggyback post-dialysis and Zosyn 2.25 grams q. 8 hours. REVIEW OF SYSTEMS: Significant for fever and chills during dialysis and drowsiness. All other review of systems are reviewed and are negative. PHYSICAL EXAMINATION: VITAL SIGNS: Blood pressure 125/80, pulse 70, respirations 20, temperature 97.8 , saturation 100%. Height 5 feet 11 inches and weight is 225 pounds. BMI 31.4. GENERAL: The patient is a 46-year-old middle-aged obese male, moderately built , moderately nourished, not in acute distress. HEENT: Pupils normal, reactive to light and accommodation. Conjunctivae pink. Sclerae anicteric. Tongue is moist. NECK: Trachea midline. LUNGS: Symmetric on both sides. Bilateral breath sounds present. No crackles. The patient has a scar from both subclavian regions from the previous Perm-A-Cath. CARDIOVASCULAR: S1 and S2 audible. No murmur or gallop. Pingree in the fifth intercostal space midclavicular line. ABDOMEN: Normal in appearance, soft, tympanic. No guarding, no rigidity. No hepatosplenomegaly. CENTRAL NERVOUS SYSTEM: The patient is alert, awake, oriented x 3, nonfocal on examination. Cranial nerves II through XII grossly intact. Sensory and motor system is within normal limits. EXTREMITIES: No cyanosis, no clubbing, no edema. LABORATORY DATA: Include as follows: As of 01/18/2017, WBC 2, hemoglobin 7.8, hematocrit is 21.9, platelets 56, neutrophils, 44 and bands 8, lymphs 26, monocytes 14, and eosinophils 8. FDP positive more than 10, less than 40, sodium 129, potassium 3.8, chloride 95, CO2 of 25, BUN 21 and creatinine 6.4, glucose 77, calcium is 10, phosphorus 5.2, magnesium 1.9, total bilirubin 1.5 and AST 131, ALT 47, alkaline phosphatase is 397, total protein 6.3, albumin is 2.2. Hepatitis C and IgM antibody is reactive and Hepatitis B surface antigen negative after his B Core antibody, IgM, is negative, hep C antibody is negative. HIV 1 and 2 antibody screening was reactive. Urinalysis: Yellow, hazy, pH 5, specific gravity 10/10, protein 2+, glucose normal, ketones negative , blood is trace, nitrites negative, urobilinogen negative, leukocyte esterase negative, WBC 2, RBC 1, and amorphous sediment few and urine bacteria occasional. His other laboratory data includes as follows: Chest x-ray as of 01/16/2017 right-sided PICC line. PAST SURGICAL HISTORY: Includes multiple Ihst-[id number]-[id number] and status post left upper extremity AV fistula and right upper extremity PICC line and right groin femoral vein catheter and blood culture x 2 is pending from 01/16/2017. SUMMARY: 1. The patient is a 46-year-old middle-aged male with history of hypertension, diabetes, bipolar disorder, substance abuse, questionable HIV positive, status post IMD Klebsiella pneumoniae sepsis and fungemia and endocarditis who was transferred from the [facility] to [facility], close the patient's brother's home, on hemodialysis. 2. End-stage renal disease. Continue hemodialysis 3 times a week, Wednesday, Wednesday and Wednesday. 3. Anemia secondary to renal failure and sepsis. 4. Fever, rule out line sepsis. Follow blood culture reports and also continue IV antibiotics as per ID recommendations and vancomycin and Zosyn. Continue to follow blood culture report from outpatient dialysis unit and we will schedule for hemodialysis in a.m. and we will try to use AV fistula and also, we will add a dietary supplement Nepro 1 can p.o. b.i.d. and we will follow with you. Thank you for allowing me to participate in your patient's care. Please get HIV confirmatory test and also CD4 count and CD8 . Lakhwinder Alcazar MD cc: [id number] TT: 01/19/2017 01:16:49 Confirmation # [id number] Dictation # [id number] kaleigh SERRANO
[2017-01-19] MEDS: (Novolog) Insulin Aspart, Recombinant 100 u/ml 10 ml vial SC SCH ×4 (08:24→21:57)
[2017-01-19 09:47] LABS: IRON 94 ug/dL (49-181)
[2017-01-19] MEDS ORDERED: Ferric Sodium Gluconat Complex 62.5 mg/5 ml Vial IVPB SCH (10:00)
[2017-01-19] MEDS ORDERED: Pneumococcal 23-Valent Vaccine IM ONE ×2 (10:00→17:00)
[2017-01-19 10:14] LABS: BASOPHIL 1 % (0-2); EOSINOPHIL 4 % (0-4); NEUTROPHIL 33 % (50-75); REACTIVE LYMPHOCYTES 2 % (0-0); TOTAL CELLS COUNTED 100
[2017-01-19] MEDS ORDERED: Lidocaine 1% PF (5ml) Amp INJ ONE (10:16)
[2017-01-19] MEDS: Saccharomyces Boulardi 250 mg Cap PO SCH ×2 (11:01→17:10)
[2017-01-19] MEDS: Ammonium Lactate 12% Lotion (225 g) EXT SCH (11:02)
[2017-01-19] MEDS: Multiple Vitamins Tab PO SCH (11:02)
[2017-01-19] MEDS: Multivitamin Vitamin B Complex (Nephro-Vite) Tab PO SCH (11:02)
--- NOTE | 2017-01-19 11:08 | CP.PCM.PN ---
Subjective - Date & Time of Evaluation Date of Evaluation: 01/19/17 Time of Evaluation: 10:00 - Subjective Subjective: clinically same Objective - Vital Signs/Intake and Output Vital Signs (last 24 hours): Temp Pulse Resp BP Pulse Ox 97.6 F 82 20 140/81 98 01/19/17 07:20 01/19/17 07:20 01/19/17 07:20 01/19/17 07:20 01/19/17 07:20 Intake and Output: 01/19/17 01/19/17 06:59 18:59 Intake Total 650 Output Total 110 Balance 540 - Medications Medications: Current Medications Acetaminophen (Tylenol 325mg Tab) 650 mg PO Q6 PRN PRN Reason: Fever >100.4 F Amlodipine Besylate (Norvasc) 5 mg PO DAILY [facility] Last Admin: 01/19/17 11:02 Dose: Not Given Epoetin Andrés (Procrit) 20,000 unit IV TTS [facility] Stop: 01/28/17 10:01 Famotidine (Pepcid) 20 mg PO DAILY [facility] Last Admin: 01/19/17 11:02 Dose: Not Given Ferric Sodium Gluconate Complex (Ferrlecit) 125 mg IVPB DAILY [facility] Stop: 01/23/17 10:01 Hydromorphone HCl (Dilaudid) 2 mg IVP Q4 PRN PRN Reason: pain Last Admin: 01/19/17 04:00 Dose: 2 mg Vancomycin HCl 1 gm/ Sodium (Chloride) 250 mls @ 166.7 mls/hr IVPB DIAL PRN Piperacillin Sod/Tazobactam Sod (Zosyn 2.25 Gm Iv Premix) 50 mls @ 100 mls/hr IVPB Q8H [facility] Last Admin: 01/19/17 11:03 Dose: Not Given Insulin Aspart (Novolog) 0 unit SC ACHS IVÁN PRN Reason: Protocol Last Admin: 01/19/17 08:24 Dose: Not Given Lactic Acid (Lac-Hydrin 12% Lotion (225 G)) 0 gm EXT DAILY [facility] Last Admin: 01/19/17 11:02 Dose: Not Given Levothyroxine Sodium (Synthroid) 50 mcg PO DAILY@0630 [facility] Last Admin: 01/19/17 05:43 Dose: 50 mcg Metoclopramide HCl (Reglan) 10 mg PO Q6H PRN PRN Reason: Nausea/Vomiting Last Admin: 01/17/17 09:42 Dose: 10 mg Multivitamins (Hexavitamin) 1 tab PO DAILY [facility] Last Admin: 01/19/17 11:02 Dose: Not Given Paricalcitol (Zemplar) 2 mcg IV TTS [facility] Stop: 01/28/17 10:01 Saccharomyces Boulardii (Florastor) 250 mg PO BID [facility] Last Admin: 01/19/17 11:01 Dose: Not Given Sucralfate (Carafate Tab) 1 gm PO Q8H [facility] Last Admin: 01/19/17 11:01 Dose: Not Given Vitamin B Complex/Vit C/Folic Acid (Nephro-Vladislav) 1 tab PO DAILY [facility] Last Admin: 01/19/17 11:02 Dose: Not Given - Labs Labs: 01/19/17 06:50 01/19/17 06:50 PT 14.6 SECONDS (9.7-12.2) H 01/18/17 11:27 INR 1.3 01/18/17 11:27 APTT 55 SECONDS (21-34) H 01/18/17 11:27 - Constitutional Appears: Well - Head Exam Head Exam: ATRAUMATIC, NORMAL INSPECTION, NORMOCEPHALIC - Eye Exam Eye Exam: EOMI, Normal appearance, PERRL Pupil Exam: NORMAL ACCOMODATION, PERRL - ENT Exam ENT Exam: Mucous Membranes Moist, Normal Exam - Respiratory Exam Respiratory Exam: Decreased Breath Sounds - Cardiovascular Exam Cardiovascular Exam: REGULAR RHYTHM, +S1, +S2 - GI/Abdominal Exam GI & Abdominal Exam: Soft, Diminished Bowel Sounds - Rectal Exam Rectal Exam: Deferred Assessment and Plan - Assessment and Plan (Free Text) Plan: pt. HIV report came +ve Piperacillin Sod/Tazobactam Sod Vancomycin pt. is chronic Hepatitis B positive f/u Dr. Husain for pancytopania f/u DR. Crane for sepsis
--- NOTE | 2017-01-19 12:52 | CP.PCM.PN ---
Subjective - Date & Time of Evaluation Date of Evaluation: 01/19/17 Time of Evaluation: 11:00 - Subjective Subjective: No complaints Seen on HD, receiving 2U PRBC Objective - Vital Signs/Intake and Output Vital Signs (last 24 hours): Temp Pulse Resp BP Pulse Ox 97.6 F 76 16 126/76 100 01/19/17 12:46 01/19/17 12:46 01/19/17 12:46 01/19/17 12:46 01/19/17 10:35 Intake and Output: 01/19/17 01/19/17 06:59 18:59 Intake Total 650 325 Output Total 110 Balance 540 325 - Medications Medications: Current Medications Acetaminophen (Tylenol 325mg Tab) 650 mg PO Q6 PRN PRN Reason: Fever >100.4 F Amlodipine Besylate (Norvasc) 5 mg PO DAILY [facility] Last Admin: 01/19/17 11:02 Dose: Not Given Epoetin Andrés (Procrit) 20,000 unit IV TTS [facility] Stop: 01/28/17 10:01 Famotidine (Pepcid) 20 mg PO DAILY [facility] Last Admin: 01/19/17 11:02 Dose: Not Given Ferric Sodium Gluconate Complex (Ferrlecit) 125 mg IVPB DAILY [facility] Stop: 01/23/17 10:01 Hydromorphone HCl (Dilaudid) 2 mg IVP Q4 PRN PRN Reason: pain Last Admin: 01/19/17 11:29 Dose: 2 mg Vancomycin HCl 1 gm/ Sodium (Chloride) 250 mls @ 166.7 mls/hr IVPB DIAL PRN Piperacillin Sod/Tazobactam Sod (Zosyn 2.25 Gm Iv Premix) 50 mls @ 100 mls/hr IVPB Q8H [facility] Last Admin: 01/19/17 11:03 Dose: Not Given Insulin Aspart (Novolog) 0 unit SC ACHS IVÁN PRN Reason: Protocol Last Admin: 01/19/17 08:24 Dose: Not Given Lactic Acid (Lac-Hydrin 12% Lotion (225 G)) 0 gm EXT DAILY [facility] Last Admin: 01/19/17 11:02 Dose: Not Given Levothyroxine Sodium (Synthroid) 50 mcg PO DAILY@0630 [facility] Last Admin: 01/19/17 05:43 Dose: 50 mcg Metoclopramide HCl (Reglan) 10 mg PO Q6H PRN PRN Reason: Nausea/Vomiting Last Admin: 01/17/17 09:42 Dose: 10 mg Multivitamins (Hexavitamin) 1 tab PO DAILY [facility] Last Admin: 01/19/17 11:02 Dose: Not Given Paricalcitol (Zemplar) 2 mcg IV TTS [facility] Stop: 01/28/17 10:01 Saccharomyces Boulardii (Florastor) 250 mg PO BID [facility] Last Admin: 01/19/17 11:01 Dose: Not Given Sucralfate (Carafate Tab) 1 gm PO Q8H [facility] Last Admin: 01/19/17 11:01 Dose: Not Given Vitamin B Complex/Vit C/Folic Acid (Nephro-Vladislav) 1 tab PO DAILY [facility] Last Admin: 01/19/17 11:02 Dose: Not Given - Labs Labs: 01/19/17 06:50 01/19/17 06:50 PT 14.6 SECONDS (9.7-12.2) H 01/18/17 11:27 INR 1.3 01/18/17 11:27 APTT 55 SECONDS (21-34) H 01/18/17 11:27 - Head Exam Head Exam: ATRAUMATIC - Eye Exam Eye Exam: Normal appearance - ENT Exam ENT Exam: Mucous Membranes Dry - Respiratory Exam Respiratory Exam: NORMAL BREATHING PATTERN - Cardiovascular Exam Cardiovascular Exam: +S1, +S2 - GI/Abdominal Exam GI & Abdominal Exam: Normal Bowel Sounds - Extremities Exam Extremities Exam: Pedal Edema Assessment and Plan (1) Pancytopenia Assessment & Plan: acute drop in H/H; receiving 2U PRBC with HD FOBT sent discussed bone marrow biopsy; pt wants to think about it ?related to viral illness Status: Acute (2) Coagulopathy Assessment & Plan: nutritional Status: Acute
[2017-01-19] MEDS: Paricalcitol 2 mcg/ml Inj IV SCH (13:39)
--- NOTE | 2017-01-19 13:44 | CP.PCM.PN ---
Subjective - Date & Time of Evaluation Date of Evaluation: 01/19/17 Time of Evaluation: 09:30 - Subjective Subjective: Medicine Progress Note- Dr. Munguia's service: Patient seen and examined at bedside this AM. Patient is resting getting HD this AM. Patient with some pain at AV fistula site since they have been using site. Denies chest pain, SOB, fevers, chills, dysuria, abdominal pain. Admits to feeling a little tired. He reports other times he has had fevers they have been secondary to "blood infections". Objective - Vital Signs/Intake and Output Vital Signs (last 24 hours): Temp Pulse Resp BP Pulse Ox 97.6 F 76 16 126/76 100 01/19/17 12:46 01/19/17 12:46 01/19/17 12:46 01/19/17 12:46 01/19/17 10:35 Intake and Output: 01/19/17 01/19/17 06:59 18:59 Intake Total 650 325 Output Total 110 Balance 540 325 - Medications Medications: Current Medications Acetaminophen (Tylenol 325mg Tab) 650 mg PO Q6 PRN PRN Reason: Fever >100.4 F Amlodipine Besylate (Norvasc) 5 mg PO DAILY [facility] Last Admin: 01/19/17 11:02 Dose: Not Given Epoetin Andrés (Procrit) 20,000 unit IV TTS [facility] Stop: 01/28/17 10:01 Famotidine (Pepcid) 20 mg PO DAILY [facility] Last Admin: 01/19/17 11:02 Dose: Not Given Ferric Sodium Gluconate Complex (Ferrlecit) 125 mg IVPB DAILY [facility] Stop: 01/23/17 10:01 Hydromorphone HCl (Dilaudid) 2 mg IVP Q4 PRN PRN Reason: pain Last Admin: 01/19/17 11:29 Dose: 2 mg Piperacillin Sod/Tazobactam Sod (Zosyn 2.25 Gm Iv Premix) 50 mls @ 100 mls/hr IVPB Q8H [facility] Last Admin: 01/19/17 11:03 Dose: Not Given Vancomycin HCl 1 gm/ Sodium (Chloride) 250 mls @ 166.7 mls/hr IVPB TTS@1700 IV[facility] Insulin Aspart (Novolog) 0 unit SC ACHS IVÁN PRN Reason: Protocol Last Admin: 01/19/17 12:50 Dose: Not Given Lactic Acid (Lac-Hydrin 12% Lotion (225 G)) 0 gm EXT DAILY [facility] Last Admin: 01/19/17 11:02 Dose: Not Given Levothyroxine Sodium (Synthroid) 50 mcg PO DAILY@0630 [facility] Last Admin: 01/19/17 05:43 Dose: 50 mcg Metoclopramide HCl (Reglan) 10 mg PO Q6H PRN PRN Reason: Nausea/Vomiting Last Admin: 01/17/17 09:42 Dose: 10 mg Multivitamins (Hexavitamin) 1 tab PO DAILY [facility] Last Admin: 01/19/17 11:02 Dose: Not Given Paricalcitol (Zemplar) 2 mcg IV TTS [facility] Stop: 01/28/17 10:01 Saccharomyces Boulardii (Florastor) 250 mg PO BID [facility] Last Admin: 01/19/17 11:01 Dose: Not Given Sucralfate (Carafate Tab) 1 gm PO Q8H [facility] Last Admin: 01/19/17 11:01 Dose: Not Given Vitamin B Complex/Vit C/Folic Acid (Nephro-Vladislav) 1 tab PO DAILY [facility] Last Admin: 01/19/17 11:02 Dose: Not Given - Labs Labs: 01/19/17 06:50 01/19/17 06:50 PT 14.6 SECONDS (9.7-12.2) H 01/18/17 11:27 INR 1.3 01/18/17 11:27 APTT 55 SECONDS (21-34) H 01/18/17 11:27 - Constitutional Appears: No Acute Distress, Chronically Ill - Head Exam Head Exam: NORMAL INSPECTION, NORMOCEPHALIC - Eye Exam Eye Exam: EOMI, Normal appearance - ENT Exam ENT Exam: Mucous Membranes Moist - Neck Exam Neck Exam: Full ROM, Normal Inspection - Respiratory Exam Respiratory Exam: Clear to Ausculation Bilateral, NORMAL BREATHING PATTERN - Cardiovascular Exam Cardiovascular Exam: REGULAR RHYTHM, +S1, +S2 - GI/Abdominal Exam GI & Abdominal Exam: Soft. absent: Distended, Tenderness - Extremities Exam Extremities Exam: Pedal Edema Additional comments: Patient has right femoral HD catheter and left AV fistula. - Neurological Exam Neurological Exam: Alert, Awake, Oriented x3 - Psychiatric Exam Psychiatric exam: Normal Affect, Normal Mood - Skin Skin Exam: Dry, Normal Color, Warm Assessment and Plan (1) Fever Assessment & Plan: T.max overnight 97.9. Patient is pancytopeneic. Lactate on admission 01/16/17 was 1.2 ID consult placed- Dr. Crane- Jarod appreciated. Continue Zosyn and Vancomycin IVPB. Follow up blood cultures, patient with multiple lines. Follow up urine cultures, patient still makes urine. HIV screen positive. Follow up HIV 1&2 antibodies and CD3/CD4/CD8 counts. CXR 01/16/17: thin oblique linear hyperdensity at the level of the right mid lung zone presumed to reflect artifact. No focal consolidation. Status: Acute (2) HIV antibody positive Assessment & Plan: ID consult placed- Dr. Crane- Jarod appreciated. HIV screen positive. Follow up HIV 1&2 antibodies and CD3/CD4/CD8 counts. Follow up blood cultures, patient with multiple lines. Follow up urine cultures, patient still makes urine. Status: Acute (3) Pancytopenia Assessment & Plan: WBC: 1.9, Hgb 6.7, Platelets 36 this AM. Patient transfused 2 units of PRBC with HD today. Procrit 20,000 IV TTS Heme/Onc consult placed- Dr. Husain- jarod appreciated. Dr. Husain discussed bone marrow biopsy- patient will consider it. Patient also with Iron deficiency anemia. Ferrlecit 125 IVP daily. F/U FOBT Status: Acute (4) Coagulopathy Assessment & Plan: Heme/Onc consult placed- Dr. Husain- jarod appreciated. PT: 14.6, INR 1.3, PTT: 55 Fibrinogen 113 (low) Fibrin degrad products/quantitative: Positive/ >10 <[address] Husain, nutritional etiology. Dietitian consult placed. Renal Dialysis diet. Status: Acute (5) ESRD (end stage renal disease) Assessment & Plan: Nephro consult placed- Dr. Alcazar- jarod appreciated HD today. Schedule TTS Status: Chronic (6) HTN (hypertension) Assessment & Plan: Norvasc 5 mg PO daily Status: Acute (7) Diabetes Assessment & Plan: Insulin sliding scale Accucheck ACHS Status: Acute (8) Hypothyroidism Assessment & Plan: Continue home dose of levothyroxine 50 mcg daily Status: Acute (9) Prophylactic measure Assessment & Plan: Pepcid 20 mg PO daily No PPI secondary to thrombocytopenia Chemical AC contraindicated secondary to Hgb drop. F/U FOBT. SCD contraindicated secondary to edema. Status: Acute - Assessment and Plan (Free Text) Assessment: All management as per Dr. Jono Munguia.
[2017-01-19] MEDS: Epoetin Alfa Dialysis 20000 UNIT/ML Inj IV SCH (13:53)
[2017-01-19 17:00] LABS: BASO % 0.8 % (0.0-2.0); EOS # 0.1 K/uL (0.0-0.7); EOS % 3.1 % (0.0-4.0); HEMATOCRIT 26.6 % (35.0-51.0); LYMPH # 0.7 K/uL (1.0-4.3); LYMPH % 29.9 % (20.0-40.0); MEAN CELL VOLUME 85.3 fL (80.0-94.0); MEAN CORPUSCULAR HEMOGLOBIN 28.3 pg (27.0-31.0); MEAN CORPUSCULAR HGB CONC 33.2 g/dL (33.0-37.0); MONO # 0.6 K/uL (0.0-0.8); MONO % 24.8 % (0.0-10.0); NRBC % 0.1 % (0.0-2.0); PLATELET COUNT 45 K/uL (130-400); WHITE BLOOD COUNT 2.3 K/uL (4.8-10.8)
--- NOTE | 2017-01-19 19:10 | CP.PCM.PN ---
Subjective - Date & Time of Evaluation Date of Evaluation: 01/19/17 Time of Evaluation: 19:09 - Subjective Subjective: pt seen and examined, follow up consult is dictated #[id number] s/p hd today, uf 2 lit s/p transfusion of 2 u prbc Objective - Vital Signs/Intake and Output Vital Signs (last 24 hours): Temp Pulse Resp BP Pulse Ox 98.1 F 82 20 143/98 H 100 01/19/17 18:37 01/19/17 18:37 01/19/17 18:37 01/19/17 18:37 01/19/17 18:37 Intake and Output: 01/19/17 01/20/17 18:59 06:59 Intake Total 890 Output Total 100 Balance 790 - Medications Medications: Current Medications Acetaminophen (Tylenol 325mg Tab) 650 mg PO Q6 PRN PRN Reason: Fever >100.4 F Amlodipine Besylate (Norvasc) 5 mg PO DAILY [facility] Last Admin: 01/19/17 11:02 Dose: Not Given Epoetin Andrés (Procrit) 20,000 unit IV TTS [facility] Stop: 01/28/17 10:01 Last Admin: 01/19/17 13:53 Dose: 20,000 unit Famotidine (Pepcid) 20 mg PO DAILY [facility] Last Admin: 01/19/17 11:02 Dose: Not Given Ferric Sodium Gluconate Complex (Ferrlecit) 125 mg IVPB DAILY [facility] Stop: 01/23/17 10:01 Last Admin: 01/19/17 13:38 Dose: 125 mg Hydromorphone HCl (Dilaudid) 2 mg IVP Q4 PRN PRN Reason: pain Last Admin: 01/19/17 16:14 Dose: 2 mg Piperacillin Sod/Tazobactam Sod (Zosyn 2.25 Gm Iv Premix) 50 mls @ 100 mls/hr IVPB Q8H [facility] Last Admin: 01/19/17 17:10 Dose: 100 mls/hr Vancomycin HCl 1 gm/ Sodium (Chloride) 250 mls @ 166.7 mls/hr IVPB TTS@1700 [facility] Last Admin: 01/19/17 17:10 Dose: 166.7 mls/hr Insulin Aspart (Novolog) 0 unit SC ACHS [facility] PRN Reason: Protocol Last Admin: 01/19/17 17:11 Dose: Not Given Lactic Acid (Lac-Hydrin 12% Lotion (225 G)) 0 gm EXT DAILY [facility] Last Admin: 01/19/17 11:02 Dose: Not Given Levothyroxine Sodium (Synthroid) 50 mcg PO DAILY@0630 [facility] Last Admin: 01/19/17 05:43 Dose: 50 mcg Metoclopramide HCl (Reglan) 10 mg PO Q6H PRN PRN Reason: Nausea/Vomiting Last Admin: 01/17/17 09:42 Dose: 10 mg Multivitamins (Hexavitamin) 1 tab PO DAILY [facility] Last Admin: 01/19/17 11:02 Dose: Not Given Paricalcitol (Zemplar) 2 mcg IV TTS [facility] Stop: 01/28/17 10:01 Last Admin: 01/19/17 13:39 Dose: 2 mcg Saccharomyces Boulardii (Florastor) 250 mg PO BID [facility] Last Admin: 01/19/17 17:10 Dose: 250 mg Sucralfate (Carafate Tab) 1 gm PO Q8H [facility] Last Admin: 01/19/17 17:10 Dose: 1 gm Vitamin B Complex/Vit C/Folic Acid (Nephro-Vladislav) 1 tab PO DAILY [facility] Last Admin: 01/19/17 11:02 Dose: Not Given - Labs Labs: 01/19/17 16:48 01/19/17 06:50 PT 14.6 SECONDS (9.7-12.2) H 01/18/17 11:27 INR 1.3 01/18/17 11:27 APTT 55 SECONDS (21-34) H 01/18/17 11:27
[2017-01-19] MEDS ORDERED: Lidocaine 1% Inj (20ml) IV ONE (19:15)
[2017-01-19 19:53] LABS: EOSINOPHIL 1 % (0-4); NEUTROPHIL 31 % (50-75); TOTAL CELLS COUNTED 100
[2017-01-19 19:56] LABS: LARGE PLATELETS PRESENT
--- NOTE | 2017-01-20 00:35 | PN ---
DATE: 01/19/2017 LOCATION: The patient is located in room 672, bed A. REQUESTED BY: Dr. Willian Munguia. REASON FOR FOLLOWUP: End-stage renal disease, continuation of the hemodialysis , status post fever. HISTORY OF PRESENT ILLNESS: The patient is a 46-year-old middle-aged obese -English male with a past medical history significant for longstanding diabetes, hypertension, bipolar disorder, end-stage renal disease, diskitis and multidrug resistant Klebsiella septicemia fungemia and diskitis who was transferred recently from to the [facility] close to patient's family. The patient was found to have fever, chills and altered mental status in the dialysis on Wednesday and blood culture x 2 were drawn status post vancomycin 1 gram and gentamicin 200 mg in the dialysis on Wednesday and, subsequently, the patient was referred to the Emergency Room for further evaluation. The patient was admitted for possible sepsis. The patient is feeling much better, not in acute distress, denies any chest pain, palpitations. Denies any fever, cough, able to use left upper extremity AV fistula today with 2 needles without any complications. The patient had hemodialysis and had ultrafiltration about 2 liters, not in acute distress. PHYSICAL EXAMINATION: VITAL SIGNS: As follows: Blood pressure this evening 143/98, pulse 82, respirations 20, temperature 98.1, saturation 100%, height 5 feet 11 inches and weight is 234 pounds. GENERAL: The patient is a 46-year-old middle-aged obese -English male, well built, well nourished, not in distress. HEENT: Pupils normal, reactive to light and accommodation. Conjunctivae pink. Sclerae anicteric. Tongue is moist. NECK: Trachea is midline. LUNGS: Symmetric on both sides. Bilateral breath sounds present. Clear on auscultation. CARDIOVASCULAR: [place] in the fifth intercostal space midclavicular line. S1 and S2 audible. No murmur or gallop. ABDOMEN: Normal in appearance, soft, tympanic. No guarding, no rigidity, no hepatosplenomegaly. CENTRAL NERVOUS SYSTEM: The patient is alert, awake, oriented x 3, nonfocal on examination. Cranial nerves II-XII grossly intact. Sensory and motor system is grossly within normal limits. EXTREMITIES: No cyanosis, no clubbing, no edema. CURRENT MEDICATIONS: Include as follows: Carafate 1 gram p.o. q. 8 hours and Dilaudid 2 mg IV q. 4 hours p.r.n., gluconate 125 mg daily and Florastor 250 mg p.o. b.i.d., multivitamin 1 tablet daily and Lac-Hydrin lotion topical, famotidine 20 mg p.o. daily, Epogen 20,000 units 3 times a week, Reglan 10 mg p.o. q. 6 hours, levothyroxine 50 mcg daily, Tylenol and vancomycin 1 gram 3 times a week, Wednesday, , Wednesday post-dialysis and Zemplar 2 mcg 3 times a week, and Zosyn 2.25 grams IV q. 8 hours. LABORATORY DATA: Include as follows: As of 01/19/2017, sodium 129, potassium is 3.5, chloride 95, CO2 26, BUN 26, creatinine 7.5, glucose 86, calcium 10.1 and phosphorus 4.8, magnesium 2.0, ferritin is 671, total bili is 1.1, AST 90, ALT 42, alkaline phosphatase is 448 and total protein 6.0, albumin is 2.1. TSH is 8.03. As of 01/19/2017, iron is 94 and TIBC 138 and saturation 68%. As of 01/19/2017, WBC 1.9, hemoglobin 6.7, hematocrit is 20.6, platelets 36, neutrophils 33, bands 13 and lymphocytes 23, and reactive lymphs 2, monocytes 24 , eosinophils 4, and basophils 1. Repeat CBC after transfusion at 1648, WBC 2.3 , hemoglobin 8.8, hematocrit is 26.6 and platelets 45, neutrophils 31 and bands 8 and lymphocytes 35 and monocytes 25%, and blood culture x 2 negative day #3 from 01/16/2017. SUMMARY: The patient is a 46-year-old middle-aged obese -English with a past medical history significant for hypertension, diabetes, end-stage renal disease, bipolar, hypothyroidism, diskitis, endocarditis and fungemia. Was admitted from the dialysis unit with fever and chills on 01/16/2017, status post vancomycin and gentamicin given prior to the blood cultures on 01/16/2017. Repeat cultures in the hospital so far is negative and low H and H, status post transfusion 2 units packed RBC during dialysis today. IMPRESSION AND PLAN: 1. End-stage renal disease. Continue hemodialysis 3 times a week, able to use left upper extremity AV fistula today without any complications with 17-gauge needle. Continue to use AV fistula and will plan to remove the right groin Perm -A-Cath prior to the discharge to [facility]. 2. Anemia, most likely multifactorial: End-stage renal disease, sepsis and cannot rule out Fe deficiency. 3. Thrombocytopenia. 4. Hypertension. Blood pressure is stable. 5. Hypothyroidism. Continue Synthroid and titrate as needed. Will continue Ferrlecit and Epogen during dialysis. Continue Nephro-Vladislav 1 tablet daily and discontinue multivitamin. Will follow with you. Thank you for allowing me to participate in your patient's care. Lakhwinder Alcazar MD cc: [id number] TT: 01/20/2017 00:35:09 Confirmation # [id number] Dictation # [id number] kaleigh SERRANO
[2017-01-20] MEDS: Piperacill/Tazo 2.25gm in Dex 50 ML IVPB SCH ×3 (02:22→17:29)
[2017-01-20] MEDS: Levothyroxine 50 MCG TAB PO SCH (06:17)
[2017-01-20 06:28] LABS: % CD3 (MATURE T CELL) 53 Percent (57-85)
[2017-01-20 07:31] LABS: BASO % 0.7 % (0.0-2.0); EOS # 0.1 K/uL (0.0-0.7); EOS % 3.5 % (0.0-4.0); HEMATOCRIT 26.4 % (35.0-51.0); MEAN CELL VOLUME 85.2 fL (80.0-94.0); MEAN CORPUSCULAR HGB CONC 32.8 g/dL (33.0-37.0); MEAN PLATELET VOLUME 8.8 fL (7.2-11.7); MONO # 0.7 K/uL (0.0-0.8); NRBC % 0.2 % (0.0-2.0); PLATELET COUNT 42 K/uL (130-400); RED CELL DISTRIBUTION WIDTH 16.5 % (11.5-14.5); WHITE BLOOD COUNT 2.7 K/uL (4.8-10.8)
[2017-01-20 07:48] LABS: POTASSIUM 3.4 mmol/L (3.6-5.2)
[2017-01-20 07:50] LABS: ALB/GLOB RATIO 0.5 (1.0-2.1); BILIRUBIN,TOTAL 1.4 mg/dL (0.2-1.3); TOTAL PROTEIN 6.3 g/dL (6.3-8.3)
[2017-01-20 07:51] LABS: CALCIUM 9.1 mg/dl (8.6-10.4); MAGNESIUM 1.9 mg/dL (1.6-2.3)
[2017-01-20] MEDS ORDERED: Potassium Chloride 20 mEq/15 ml LIQ UD PO STA (07:56)
[2017-01-20] MEDS: (Novolog) Insulin Aspart, Recombinant 100 u/ml 10 ml vial SC SCH ×4 (08:30→21:49)
--- NOTE | 2017-01-20 09:35 | CP.PCM.PN ---
Subjective - Date & Time of Evaluation Date of Evaluation: 01/20/17 Time of Evaluation: 10:00 - Subjective Subjective: Dr. Stanton perry service: Patient is in his room. He says he is feeling much better. He does report having several episodes of diarrhea for about 2-3 months which has improved over the past few days. He also denies any night sweats, fever, chills, difficulty swallowing. Objective - Vital Signs/Intake and Output Vital Signs (last 24 hours): Temp Pulse Resp BP Pulse Ox 97.9 F 83 18 152/95 H 100 01/20/17 07:00 01/20/17 07:00 01/20/17 07:00 01/20/17 07:00 01/20/17 07:00 Intake and Output: 01/20/17 01/20/17 06:59 18:59 Intake Total 350 Balance 350 - Medications Medications: Current Medications Acetaminophen (Tylenol 325mg Tab) 650 mg PO Q6 PRN PRN Reason: Fever >100.4 F Amlodipine Besylate (Norvasc) 5 mg PO DAILY [facility] Last Admin: 01/19/17 11:02 Dose: Not Given Epoetin Andrés (Procrit) 20,000 unit IV TTS [facility] Stop: 01/28/17 10:01 Last Admin: 01/19/17 13:53 Dose: 20,000 unit Famotidine (Pepcid) 20 mg PO DAILY [facility] Last Admin: 01/19/17 11:02 Dose: Not Given Ferric Sodium Gluconate Complex (Ferrlecit) 125 mg IVPB DAILY [facility] Stop: 01/23/17 10:01 Last Admin: 01/19/17 13:38 Dose: 125 mg Hydromorphone HCl (Dilaudid) 2 mg IVP Q4 PRN PRN Reason: pain Last Admin: 01/20/17 06:17 Dose: 2 mg Piperacillin Sod/Tazobactam Sod (Zosyn 2.25 Gm Iv Premix) 50 mls @ 100 mls/hr IVPB Q8H [facility] Last Admin: 01/20/17 02:22 Dose: 100 mls/hr Vancomycin HCl 1 gm/ Sodium (Chloride) 250 mls @ 166.7 mls/hr IVPB TTS@1700 [facility] Last Admin: 01/19/17 17:10 Dose: 166.7 mls/hr Insulin Aspart (Novolog) 0 unit SC ACHS [facility] PRN Reason: Protocol Last Admin: 01/19/17 21:57 Dose: Not Given Lactic Acid (Lac-Hydrin 12% Lotion (225 G)) 0 gm EXT DAILY [facility] Last Admin: 01/19/17 11:02 Dose: Not Given Levothyroxine Sodium (Synthroid) 50 mcg PO DAILY@0630 [facility] Last Admin: 01/20/17 06:17 Dose: 50 mcg Metoclopramide HCl (Reglan) 10 mg PO Q6H PRN PRN Reason: Nausea/Vomiting Last Admin: 01/17/17 09:42 Dose: 10 mg Paricalcitol (Zemplar) 2 mcg IV TTS [facility] Stop: 01/28/17 10:01 Last Admin: 01/19/17 13:39 Dose: 2 mcg Saccharomyces Boulardii (Florastor) 250 mg PO BID [facility] Last Admin: 01/19/17 17:10 Dose: 250 mg Sucralfate (Carafate Tab) 1 gm PO Q8H [facility] Last Admin: 01/20/17 02:21 Dose: 1 gm Vitamin B Complex/Vit C/Folic Acid (Nephro-Vladislav) 1 tab PO DAILY [facility] Last Admin: 01/19/17 11:02 Dose: Not Given - Labs Labs: 01/20/17 07:20 01/20/17 07:20 PT 14.6 SECONDS (9.7-12.2) H 01/18/17 11:27 INR 1.3 01/18/17 11:27 APTT 55 SECONDS (21-34) H 01/18/17 11:27 - Constitutional Appears: Non-toxic, No Acute Distress, Unkempt - Head Exam Head Exam: NORMAL INSPECTION - Eye Exam Eye Exam: Normal appearance Pupil Exam: NORMAL ACCOMODATION - ENT Exam ENT Exam: Normal Exam - Neck Exam Neck Exam: Normal Inspection - Respiratory Exam Respiratory Exam: Clear to Ausculation Bilateral. absent: Rales, Rhonchi, Wheezes - Cardiovascular Exam Cardiovascular Exam: REGULAR RHYTHM, RRR, +S1, +S2. absent: Gallop, Rubs - GI/Abdominal Exam GI & Abdominal Exam: Soft, Normal Bowel Sounds. absent: Tenderness - Extremities Exam Extremities Exam: Normal Inspection. absent: Pedal Edema Additional comments: femoral perma cath removed. - Psychiatric Exam Psychiatric exam: Normal Affect, Normal Mood - Skin Skin Exam: Pallor Assessment and Plan - Assessment and Plan (Free Text) Assessment: Heptatitis: 01/19, hep panel shows Hep A postive, infection control nurse called and say patient was reported as chronic Hep B. Will repeat panel. Follow up results. Fever: 01/19: Per Nephrology consult, patient has positive blood cultures from the outpatient dialysis center, will continue IV Zosyn. Patient is Patient on Zyson and Vac IV. Follow up blood cultures, as well as urine (patient still makes urine). HIV 01/19: Also follow up RPR, cryptocccal, RPR and toxo work up as well. CD4 count is 334, Viral load is below detectable levels. HIV screen is positive, follow up viral load and cell count. Pancytopenia Dr. Husain consulted, help appreciated Hyponatremia Na 129, follow up am cmp HTN Norvasc 5mg Hypothryoidism 01/19: His TSH is high and so is his free T4, will need to call his pharmacy to find out what dosage of synthroid he is taking. Continue home symthroid DM accu checks sliding scale Prophylatic measure Carafate 1gm q8h pepcid 20mg hold VTE due to thrombocytpenia.
--- NOTE | 2017-01-20 09:39 | CP.PCM.PN ---
Subjective - Date & Time of Evaluation Date of Evaluation: 01/20/17 Time of Evaluation: 09:37 - Subjective Subjective: pt seen and examined, follow up consult is dictated #[id number] blood c/s from [facility] unit from 01/16/17 are positive for GN bacilli in both aerobic and anerobic bottles, s/p vanco 1gm and genta 200 mg ivpb x1 on 01/16/2017 in hd unit prior to referral to ER vascular surgery follow up for removal of rt fv perma cath and / ? rt picc line if possible hd in am Objective - Vital Signs/Intake and Output Vital Signs (last 24 hours): Temp Pulse Resp BP Pulse Ox 97.9 F 83 18 152/95 H 100 01/20/17 07:00 01/20/17 07:00 01/20/17 07:00 01/20/17 07:00 01/20/17 07:00 Intake and Output: 01/20/17 01/20/17 06:59 18:59 Intake Total 350 Balance 350 - Medications Medications: Current Medications Acetaminophen (Tylenol 325mg Tab) 650 mg PO Q6 PRN PRN Reason: Fever >100.4 F Amlodipine Besylate (Norvasc) 5 mg PO DAILY [facility] Last Admin: 01/19/17 11:02 Dose: Not Given Epoetin Andrés (Procrit) 20,000 unit IV TTS [facility] Stop: 01/28/17 10:01 Last Admin: 01/19/17 13:53 Dose: 20,000 unit Famotidine (Pepcid) 20 mg PO DAILY [facility] Last Admin: 01/19/17 11:02 Dose: Not Given Ferric Sodium Gluconate Complex (Ferrlecit) 125 mg IVPB DAILY [facility] Stop: 01/23/17 10:01 Last Admin: 01/19/17 13:38 Dose: 125 mg Hydromorphone HCl (Dilaudid) 2 mg IVP Q4 PRN PRN Reason: pain Last Admin: 01/20/17 06:17 Dose: 2 mg Piperacillin Sod/Tazobactam Sod (Zosyn 2.25 Gm Iv Premix) 50 mls @ 100 mls/hr IVPB Q8H [facility] Last Admin: 01/20/17 02:22 Dose: 100 mls/hr Vancomycin HCl 1 gm/ Sodium (Chloride) 250 mls @ 166.7 mls/hr IVPB TTS@1700 [facility] Last Admin: 01/19/17 17:10 Dose: 166.7 mls/hr Insulin Aspart (Novolog) 0 unit SC ACHS IVÁN PRN Reason: Protocol Last Admin: 01/19/17 21:57 Dose: Not Given Lactic Acid (Lac-Hydrin 12% Lotion (225 G)) 0 gm EXT DAILY [facility] Last Admin: 01/19/17 11:02 Dose: Not Given Levothyroxine Sodium (Synthroid) 50 mcg PO DAILY@0630 [facility] Last Admin: 01/20/17 06:17 Dose: 50 mcg Metoclopramide HCl (Reglan) 10 mg PO Q6H PRN PRN Reason: Nausea/Vomiting Last Admin: 01/17/17 09:42 Dose: 10 mg Paricalcitol (Zemplar) 2 mcg IV TTS [facility] Stop: 01/28/17 10:01 Last Admin: 01/19/17 13:39 Dose: 2 mcg Saccharomyces Boulardii (Florastor) 250 mg PO BID [facility] Last Admin: 01/19/17 17:10 Dose: 250 mg Sucralfate (Carafate Tab) 1 gm PO Q8H [facility] Last Admin: 01/20/17 02:21 Dose: 1 gm Vitamin B Complex/Vit C/Folic Acid (Nephro-Vladislav) 1 tab PO DAILY [facility] Last Admin: 01/19/17 11:02 Dose: Not Given - Labs Labs: 01/20/17 07:20 01/20/17 07:20 PT 14.6 SECONDS (9.7-12.2) H 01/18/17 11:27 INR 1.3 01/18/17 11:27 APTT 55 SECONDS (21-34) H 01/18/17 11:27
[2017-01-20 09:41] LABS: EOSINOPHIL 3 % (0-4); TOTAL CELLS COUNTED 100
[2017-01-20 09:42] LABS: NEUTROPHIL 36 % (50-75)
[2017-01-20] MEDS: Saccharomyces Boulardi 250 mg Cap PO SCH ×2 (10:59→17:29)
[2017-01-20] MEDS: Multivitamin Vitamin B Complex (Nephro-Vite) Tab PO SCH (10:59)
[2017-01-20] MEDS: Ammonium Lactate 12% Lotion (225 g) EXT SCH (11:00)
[2017-01-20 15:31] LABS: FT3 9.83 pg/mL (2.77-5.27)
[2017-01-20 15:45] LABS: THYROID STIMULATING HORMONE 6.68 mIU/L (0.46-4.68)
--- NOTE | 2017-01-20 17:51 | CP.PCM.PN ---
Subjective - Date & Time of Evaluation Date of Evaluation: 01/20/17 Time of Evaluation: 07:00 - Subjective Subjective: recent hx gram neg sepsis rx in progress + HIV/ encephalopathy consider neuro eval/ MRI/ LP Objective - Vital Signs/Intake and Output Vital Signs (last 24 hours): Temp Pulse Resp BP Pulse Ox 98.1 F 75 20 144/95 H 100 01/20/17 15:14 01/20/17 16:00 01/20/17 15:14 01/20/17 15:14 01/20/17 15:14 Intake and Output: 01/20/17 01/20/17 06:59 18:59 Intake Total 350 400 Balance 350 400 - Medications Medications: Current Medications Acetaminophen (Tylenol 325mg Tab) 650 mg PO Q6 PRN PRN Reason: Fever >100.4 F Amlodipine Besylate (Norvasc) 5 mg PO DAILY [facility] Last Admin: 01/20/17 10:59 Dose: 5 mg Epoetin Andrés (Procrit) 20,000 unit IV TTS [facility] Stop: 01/28/17 10:01 Last Admin: 01/19/17 13:53 Dose: 20,000 unit Famotidine (Pepcid) 20 mg PO DAILY [facility] Last Admin: 01/20/17 10:59 Dose: 20 mg Ferric Sodium Gluconate Complex (Ferrlecit) 125 mg IVPB TTS [facility] Stop: 01/28/17 10:01 Hydromorphone HCl (Dilaudid) 2 mg IVP Q4 PRN PRN Reason: pain Last Admin: 01/20/17 16:33 Dose: 2 mg Piperacillin Sod/Tazobactam Sod (Zosyn 2.25 Gm Iv Premix) 50 mls @ 100 mls/hr IVPB Q8H [facility] Last Admin: 01/20/17 17:29 Dose: 100 mls/hr Vancomycin HCl 1 gm/ Sodium (Chloride) 250 mls @ 166.7 mls/hr IVPB TTS@1700 [facility] Last Admin: 01/19/17 17:10 Dose: 166.7 mls/hr Insulin Aspart (Novolog) 0 unit SC ACHS IVÁN PRN Reason: Protocol Last Admin: 01/20/17 16:45 Dose: Not Given Lactic Acid (Lac-Hydrin 12% Lotion (225 G)) 0 gm EXT DAILY [facility] Last Admin: 01/20/17 11:00 Dose: 225 gm Levothyroxine Sodium (Synthroid) 50 mcg PO DAILY@0630 [facility] Last Admin: 01/20/17 06:17 Dose: 50 mcg Metoclopramide HCl (Reglan) 10 mg PO Q6H PRN PRN Reason: Nausea/Vomiting Last Admin: 01/17/17 09:42 Dose: 10 mg Paricalcitol (Zemplar) 2 mcg IV TTS [facility] Stop: 01/28/17 10:01 Last Admin: 01/19/17 13:39 Dose: 2 mcg Saccharomyces Boulardii (Florastor) 250 mg PO BID [facility] Last Admin: 01/20/17 17:29 Dose: 250 mg Sucralfate (Carafate Tab) 1 gm PO Q8H [facility] Last Admin: 01/20/17 17:29 Dose: 1 gm Vitamin B Complex/Vit C/Folic Acid (Nephro-Vladislav) 1 tab PO DAILY [facility] Last Admin: 01/20/17 10:59 Dose: 1 tab - Labs Labs: 01/20/17 07:20 01/20/17 07:20 PT 14.6 SECONDS (9.7-12.2) H 01/18/17 11:27 INR 1.3 01/18/17 11:27 APTT 55 SECONDS (21-34) H 01/18/17 11:27 - Constitutional Appears: Non-toxic, Cachectic, Chronically Ill - Head Exam Head Exam: NORMOCEPHALIC - Eye Exam Eye Exam: absent: Scleral icterus - ENT Exam ENT Exam: Mucous Membranes Dry - Neck Exam Neck Exam: absent: Lymphadenopathy - Respiratory Exam Respiratory Exam: Decreased Breath Sounds, Clear to Ausculation Bilateral - Cardiovascular Exam Cardiovascular Exam: REGULAR RHYTHM, +S1, +S2 - GI/Abdominal Exam GI & Abdominal Exam: Distended, Soft. absent: Tenderness - Rectal Exam Rectal Exam: Deferred - Exam Exam: NORMAL INSPECTION Assessment and Plan (1) Diabetes Status: Acute (2) Fever Status: Acute (3) HIV antibody positive Status: Acute (4) HTN (hypertension) Status: Acute (5) Hypothyroidism Status: Acute (6) Pancytopenia Status: Acute
--- NOTE | 2017-01-20 18:53 | CP.PCM.PN ---
Subjective - Date & Time of Evaluation Date of Evaluation: 01/20/17 Time of Evaluation: 12:20 - Subjective Subjective: feeling much better Objective - Vital Signs/Intake and Output Vital Signs (last 24 hours): Temp Pulse Resp BP Pulse Ox 98.1 F 75 20 144/95 H 100 01/20/17 15:14 01/20/17 16:00 01/20/17 15:14 01/20/17 15:14 01/20/17 15:14 Intake and Output: 01/20/17 01/20/17 06:59 18:59 Intake Total 350 400 Balance 350 400 - Medications Medications: Current Medications Acetaminophen (Tylenol 325mg Tab) 650 mg PO Q6 PRN PRN Reason: Fever >100.4 F Amlodipine Besylate (Norvasc) 5 mg PO DAILY [facility] Last Admin: 01/20/17 10:59 Dose: 5 mg Epoetin Andrés (Procrit) 20,000 unit IV TTS [facility] Stop: 01/28/17 10:01 Last Admin: 01/19/17 13:53 Dose: 20,000 unit Famotidine (Pepcid) 20 mg PO DAILY [facility] Last Admin: 01/20/17 10:59 Dose: 20 mg Ferric Sodium Gluconate Complex (Ferrlecit) 125 mg IVPB TTS [facility] Stop: 01/28/17 10:01 Hydromorphone HCl (Dilaudid) 2 mg IVP Q4 PRN PRN Reason: pain Last Admin: 01/20/17 16:33 Dose: 2 mg Piperacillin Sod/Tazobactam Sod (Zosyn 2.25 Gm Iv Premix) 50 mls @ 100 mls/hr IVPB Q8H [facility] Last Admin: 01/20/17 17:29 Dose: 100 mls/hr Vancomycin HCl 1 gm/ Sodium (Chloride) 250 mls @ 166.7 mls/hr IVPB TTS@1700 [facility] Last Admin: 01/19/17 17:10 Dose: 166.7 mls/hr Insulin Aspart (Novolog) 0 unit SC ACHS IVÁN PRN Reason: Protocol Last Admin: 01/20/17 16:45 Dose: Not Given Lactic Acid (Lac-Hydrin 12% Lotion (225 G)) 0 gm EXT DAILY [facility] Last Admin: 01/20/17 11:00 Dose: 225 gm Levothyroxine Sodium (Synthroid) 50 mcg PO DAILY@0630 [facility] Last Admin: 01/20/17 06:17 Dose: 50 mcg Metoclopramide HCl (Reglan) 10 mg PO Q6H PRN PRN Reason: Nausea/Vomiting Last Admin: 01/17/17 09:42 Dose: 10 mg Paricalcitol (Zemplar) 2 mcg IV TTS [facility] Stop: 01/28/17 10:01 Last Admin: 01/19/17 13:39 Dose: 2 mcg Saccharomyces Boulardii (Florastor) 250 mg PO BID [facility] Last Admin: 01/20/17 17:29 Dose: 250 mg Sucralfate (Carafate Tab) 1 gm PO Q8H [facility] Last Admin: 01/20/17 17:29 Dose: 1 gm Vitamin B Complex/Vit C/Folic Acid (Nephro-Vladislav) 1 tab PO DAILY [facility] Last Admin: 01/20/17 10:59 Dose: 1 tab - Labs Labs: 01/20/17 07:20 01/20/17 07:20 PT 14.6 SECONDS (9.7-12.2) H 01/18/17 11:27 INR 1.3 01/18/17 11:27 APTT 55 SECONDS (21-34) H 01/18/17 11:27 - Constitutional Appears: Well - Head Exam Head Exam: ATRAUMATIC, NORMAL INSPECTION, NORMOCEPHALIC - Eye Exam Eye Exam: EOMI, Normal appearance, PERRL Pupil Exam: NORMAL ACCOMODATION, PERRL - Neck Exam Neck Exam: Full ROM, Normal Inspection. absent: Lymphadenopathy - Respiratory Exam Respiratory Exam: Decreased Breath Sounds - Cardiovascular Exam Cardiovascular Exam: REGULAR RHYTHM, +S1, +S2 - GI/Abdominal Exam GI & Abdominal Exam: Soft, Diminished Bowel Sounds - Rectal Exam Rectal Exam: Deferred Assessment and Plan (1) Coagulopathy Status: Acute (2) Diabetes Status: Acute (3) Fever Status: Acute (4) HTN (hypertension) Status: Acute (5) Hypothyroidism Status: Acute (6) Pancytopenia Status: Acute (7) Prophylactic measure Status: Acute (8) ESRD (end stage renal disease) Status: Chronic (9) HIV antibody positive Status: Suspected - Assessment and Plan (Free Text) Plan: f/u Dr. Husain f/u Dr. Crane blood culture is positive for gram -ve bacteria iv antibiotic continue
[2017-01-20] MEDS ORDERED: Potassium Chloride 10 mEq ER Tab PO STA (22:48)
--- NOTE | 2017-01-21 00:22 | PN ---
DATE: 01/20/2017 The patient is located in room 672, bed A. REQUESTED BY: Dr. Willian Munguia. REASON FOR RENAL CONSULTATION: End-stage renal disease, gram-negative sepsis, continuation of hemodialysis, and anemia. HISTORY OF PRESENT ILLNESS: The patient is a 46-year-old, middle-aged, male with history of hypertension, diabetes, end-stage renal disease, bipolar disorder, klebsiella bacteremia, and endocarditis fungemia, right hand cellulitis, who was in LTAC and recently transferred to [facility] close to the patient's family, the patient's brother's residence. The patient is not in acute distress. The patient was having chills and rigors during dialysis on Wednesday, 01/16. The patient was given antibiotics vancomycin and gentamicin after blood culture was drawn, and sent to the Emergency Room for further evaluation with altered mental status. The patient is being treated for sepsis now. Blood culture from the dialysis center is growing gram-negative bacilli in both aerobic and anaerobic bottles. The patient is afebrile at this time. No chest pain. No palpitations. No fever. No cough. PHYSICAL EXAMINATION: VITAL SIGNS: As follows: Blood pressure this morning 152/95, pulse 83, respirations 18, temperature 97.9, saturation 100%, height 5 feet 11 inches and weight is 234 pounds. GENERAL: The patient is 46-year-old male, moderately built, moderately nourished, not in any acute distress. HEENT: Pupils normal, reactive to light and accommodation. Conjunctivae pink. Sclerae anicteric. Tongue is moist. NECK: Trachea is midline. LUNGS: Symmetry on both sides. Bilateral breath sounds present. Clear on auscultation. CARDIOVASCULAR: Jbphh in the fifth intercostal space midclavicular line. S1 and S2 audible. No murmur. No gallop. ABDOMEN: Normal in appearance, soft, tympanitic. No guarding. No rigidity. No hepatosplenomegaly. CENTRAL NERVOUS SYSTEM: The patient is alert, awake, oriented x 2-3. Sensory- motor system is grossly within normal limits. Cranial nerves II-XII grossly intact. EXTREMITIES: No cyanosis. No clubbing. No edema. CURRENT MEDICATIONS: Include Carafate 1 g p.o. q. 8 hours, Dilaudid 2 mg IV q. 4 hours p.r.n.,ferric gluconate 125 mg 3 times a week, Florastor 250 mg p.o. b.i.d., Lac-Hydrin lotion to skin, Nephro-Vladislav 1 tablet daily, Norvasc 5 mg daily, Pepcid 20 mg p.o. daily, Procrit 20,000 units IV 3 times a week, Reglan 10 mg p.o. q. 6 hours and Synthroid 50 mcg daily, Tylenol, and vancomycin 1 gram 3 times a week, and Zemplar 2 mcg 3 times a week, and Zosyn 2.25 g IV q. 8 hours. LABORATORY DATA: Include as follows as of 01/20/2017: WBC 2.7, hemoglobin 8.7 , hematocrit is 26.4, platelets 42, neutrophils 36, bands 5, lymphs 35, monos 21 , and eosinophils 3. Sodium 131, potassium 3.4, chloride 95, CO2 27, BUN 18, creatinine 5.4, glucose 86, calcium 9.1. Hemoglobin A1c 4.4. Magnesium 1.9 and total bilirubin 1.4, AST 97, ALT 46, alkaline phosphatase of 528. Total protein 6.3, albumin is 2.2. The free thyroxine is 2.4 and TSH is 6.68. Stool for occult blood is negative as of 01/19/2017. Other reports: RPR is nonreactive and cryptococcal antigen is negative and hepatitis C antibody IgM is reactive and hepatitis B surface antigen is negative. HB core antibody is negative IgM, hep C antibody is negative. His blood culture from the dialysis unit from 01/16/2017 is positive for gram-negative bacilli in both aerobic and anaerobic bottles. Other reports: A CD4 count and absolute CD4 count is 318 . SUMMARY: The patient is a 46-year-old, middle-aged, male with a history of hypertension, diabetes, end-stage renal disease, bipolar disorder, hypothyroidism, and also multidrug resistant klebsiella infection bacteremia in the past and multiple Perm-A-Cath placements, and also fungemia, who was admitted with fever, chills, and now found to have gram-negative bacilli in blood culture from the dialysis unit. 1. End-stage renal disease. Continue hemodialysis 3 times a week. 2. Hypertension. Blood pressure is slightly high. Continue Norvasc and titrate as needed to keep the blood pressure below 130/70. 3. Anemia. Most likely secondary to multifactorial sepsis, end-stage renal disease, rule out human immunodeficiency virus. 4. Thrombocytopenia. 5. Pancytopenia, rule out human immunodeficiency virus infection. PLAN: Continue IV antibiotics, vancomycin, and Zosyn, and adjust antibiotics as per ID recommendations. Consider to discontinue vancomycin as blood culture positive for gram-negative bacilli, and consult vascular surgery followup and removal of the Perm-A-Cath and possibly the right PICC line. Case discussed with Dr. Willian Munguia in rounds. d/w Dr. Pepper in rounds. Will follow with you. Thank you for allowing me to participate in our patient's care and continue hemodialysis in the a.m. We will continue to use AV fistula. Lakhwinder Alcazar MD cc: [id number] TT: 01/20/2017 23:13:34 Confirmation # [id number] Dictation # [id number] tn 01/20/2017 23:21:41 ZACH
[2017-01-21] MEDS: Piperacill/Tazo 2.25gm in Dex 50 ML IVPB SCH ×2 (02:20→09:10)
[2017-01-21] MEDS: Levothyroxine 50 MCG TAB PO SCH (06:09)
[2017-01-21 07:24] LABS: BASO % 0.7 % (0.0-2.0); EOS # 0.1 K/uL (0.0-0.7); HEMATOCRIT 26.8 % (35.0-51.0); LYMPH # 1.1 K/uL (1.0-4.3); LYMPH % 37.5 % (20.0-40.0); MEAN CELL VOLUME 86.2 fL (80.0-94.0); MEAN CORPUSCULAR HGB CONC 32.5 g/dL (33.0-37.0); MEAN PLATELET VOLUME 9.1 fL (7.2-11.7); MONO # 0.6 K/uL (0.0-0.8); MONO % 18.2 % (0.0-10.0); NRBC % 0.1 % (0.0-2.0); RED CELL DISTRIBUTION WIDTH 16.7 % (11.5-14.5)
[2017-01-21 07:31] LABS: POTASSIUM 4.1 mmol/L (3.6-5.2)
[2017-01-21 07:33] LABS: BILIRUBIN,TOTAL 1.2 mg/dL (0.2-1.3)
[2017-01-21 07:34] LABS: ALB/GLOB RATIO 0.5 (1.0-2.1); CALCIUM 9.4 mg/dl (8.6-10.4); TOTAL PROTEIN 6.4 g/dL (6.3-8.3)
[2017-01-21 07:35] LABS: MAGNESIUM 1.9 mg/dL (1.6-2.3)
[2017-01-21] MEDS: (Novolog) Insulin Aspart, Recombinant 100 u/ml 10 ml vial SC SCH ×3 (08:42→16:30)
--- NOTE | 2017-01-21 09:03 | CP.PCM.PN ---
Subjective - Date & Time of Evaluation Date of Evaluation: 01/21/17 Time of Evaluation: 09:02 - Subjective Subjective: pt seen and examined, follow up consult is dictated #[id number] blood c/s+ ve for K.pneumonia from 01/16/2017 from [facility] unit s/p removal of perma catheter stable hd tx, uf 2.5 lit Objective - Vital Signs/Intake and Output Vital Signs (last 24 hours): Temp Pulse Resp BP Pulse Ox 98.1 F 76 20 162/100 H 100 01/20/17 23:00 01/21/17 03:51 01/21/17 02:25 01/21/17 02:25 01/20/17 23:00 Intake and Output: 01/21/17 01/21/17 06:59 18:59 Intake Total 490 Balance 490 - Medications Medications: Current Medications Acetaminophen (Tylenol 325mg Tab) 650 mg PO Q6 PRN PRN Reason: Fever >100.4 F Amlodipine Besylate (Norvasc) 5 mg PO DAILY [facility] Last Admin: 01/20/17 10:59 Dose: 5 mg Epoetin Andrés (Procrit) 20,000 unit IV TTS [facility] Stop: 01/28/17 10:01 Last Admin: 01/19/17 13:53 Dose: 20,000 unit Famotidine (Pepcid) 20 mg PO DAILY [facility] Last Admin: 01/20/17 10:59 Dose: 20 mg Ferric Sodium Gluconate Complex (Ferrlecit) 125 mg IVPB TTS [facility] Stop: 01/28/17 10:01 Hydromorphone HCl (Dilaudid) 2 mg IVP Q4 PRN PRN Reason: pain Last Admin: 01/21/17 02:31 Dose: 2 mg Piperacillin Sod/Tazobactam Sod (Zosyn 2.25 Gm Iv Premix) 50 mls @ 100 mls/hr IVPB Q8H [facility] Last Admin: 01/21/17 02:20 Dose: 100 mls/hr Vancomycin HCl 1 gm/ Sodium (Chloride) 250 mls @ 166.7 mls/hr IVPB TTS@1700 [facility] Last Admin: 01/19/17 17:10 Dose: 166.7 mls/hr Insulin Aspart (Novolog) 0 unit SC ACHS [facility] PRN Reason: Protocol Last Admin: 01/21/17 08:42 Dose: Not Given Lactic Acid (Lac-Hydrin 12% Lotion (225 G)) 0 gm EXT DAILY [facility] Last Admin: 01/20/17 11:00 Dose: 225 gm Levothyroxine Sodium (Synthroid) 50 mcg PO DAILY@0630 [facility] Last Admin: 01/21/17 06:09 Dose: 50 mcg Metoclopramide HCl (Reglan) 10 mg PO Q6H PRN PRN Reason: Nausea/Vomiting Last Admin: 01/17/17 09:42 Dose: 10 mg Paricalcitol (Zemplar) 2 mcg IV TTS [facility] Stop: 01/28/17 10:01 Last Admin: 01/19/17 13:39 Dose: 2 mcg Saccharomyces Boulardii (Florastor) 250 mg PO BID [facility] Last Admin: 01/20/17 17:29 Dose: 250 mg Sucralfate (Carafate Tab) 1 gm PO Q8H [facility] Last Admin: 01/21/17 02:30 Dose: 1 gm Vitamin B Complex/Vit C/Folic Acid (Nephro-Vladislav) 1 tab PO DAILY [facility] Last Admin: 01/20/17 10:59 Dose: 1 tab - Labs Labs: 01/21/17 07:03 01/21/17 07:03 PT 14.6 SECONDS (9.7-12.2) H 01/18/17 11:27 INR 1.3 01/18/17 11:27 APTT 55 SECONDS (21-34) H 01/18/17 11:27
--- NOTE | 2017-01-21 09:07 | CP.PCM.PN ---
<Fahad Vogel H - Last Filed: 01/21/17 17:08> Subjective - Date & Time of Evaluation Date of Evaluation: 01/21/17 Time of Evaluation: 09:40 - Subjective Subjective: Dr. Stanton Munguia service: Patient is seen and examined in room. He says he is feeling better. discussed today his diarrhea. He says that for about a month and a half he had very little appetite but also diarrhea. He says his diarrhea has improved and so has his appetite. Objective - Vital Signs/Intake and Output Vital Signs (last 24 hours): Temp Pulse Resp BP Pulse Ox 98.1 F 76 20 162/100 H 100 01/20/17 23:00 01/21/17 03:51 01/21/17 02:25 01/21/17 02:25 01/20/17 23:00 Intake and Output: 01/21/17 01/21/17 06:59 18:59 Intake Total 490 Balance 490 - Medications Medications: Current Medications Acetaminophen (Tylenol 325mg Tab) 650 mg PO Q6 PRN PRN Reason: Fever >100.4 F Amlodipine Besylate (Norvasc) 5 mg PO DAILY [facility] Last Admin: 01/20/17 10:59 Dose: 5 mg Epoetin Andrés (Procrit) 20,000 unit IV TTS [facility] Stop: 01/28/17 10:01 Last Admin: 01/19/17 13:53 Dose: 20,000 unit Famotidine (Pepcid) 20 mg PO DAILY [facility] Last Admin: 01/20/17 10:59 Dose: 20 mg Ferric Sodium Gluconate Complex (Ferrlecit) 125 mg IVPB TTS [facility] Stop: 01/28/17 10:01 Hydromorphone HCl (Dilaudid) 2 mg IVP Q4 PRN PRN Reason: pain Last Admin: 01/21/17 02:31 Dose: 2 mg Piperacillin Sod/Tazobactam Sod (Zosyn 2.25 Gm Iv Premix) 50 mls @ 100 mls/hr IVPB Q8H [facility] Last Admin: 01/21/17 02:20 Dose: 100 mls/hr Vancomycin HCl 1 gm/ Sodium (Chloride) 250 mls @ 166.7 mls/hr IVPB TTS@1700 [facility] Last Admin: 01/19/17 17:10 Dose: 166.7 mls/hr Insulin Aspart (Novolog) 0 unit SC ACHS [facility] PRN Reason: Protocol Last Admin: 01/21/17 08:42 Dose: Not Given Lactic Acid (Lac-Hydrin 12% Lotion (225 G)) 0 gm EXT DAILY [facility] Last Admin: 01/20/17 11:00 Dose: 225 gm Levothyroxine Sodium (Synthroid) 50 mcg PO DAILY@0630 [facility] Last Admin: 01/21/17 06:09 Dose: 50 mcg Metoclopramide HCl (Reglan) 10 mg PO Q6H PRN PRN Reason: Nausea/Vomiting Last Admin: 01/17/17 09:42 Dose: 10 mg Paricalcitol (Zemplar) 2 mcg IV TTS [facility] Stop: 01/28/17 10:01 Last Admin: 01/19/17 13:39 Dose: 2 mcg Saccharomyces Boulardii (Florastor) 250 mg PO BID [facility] Last Admin: 01/20/17 17:29 Dose: 250 mg Sucralfate (Carafate Tab) 1 gm PO Q8H [facility] Last Admin: 01/21/17 02:30 Dose: 1 gm Vitamin B Complex/Vit C/Folic Acid (Nephro-Vladislav) 1 tab PO DAILY [facility] Last Admin: 01/20/17 10:59 Dose: 1 tab - Labs Labs: 01/21/17 07:03 01/21/17 07:03 PT 14.6 SECONDS (9.7-12.2) H 01/18/17 11:27 INR 1.3 01/18/17 11:27 APTT 55 SECONDS (21-34) H 01/18/17 11:27 - Constitutional Appears: Non-toxic, No Acute Distress - Head Exam Head Exam: NORMAL INSPECTION - Respiratory Exam Respiratory Exam: Clear to Ausculation Bilateral. absent: Rhonchi, Wheezes - Cardiovascular Exam Cardiovascular Exam: REGULAR RHYTHM, RRR, +S1, +S2. absent: Gallop, Rubs - GI/Abdominal Exam GI & Abdominal Exam: Soft, Normal Bowel Sounds. absent: Tenderness - Extremities Exam Extremities Exam: Normal Inspection. absent: Pedal Edema - Back Exam Back Exam: NORMAL INSPECTION - Psychiatric Exam Psychiatric exam: Normal Affect, Normal Mood Assessment and Plan - Assessment and Plan (Free Text) Assessment: Heptatitis: 01/21: repeat panel is shows hep A positive but Hep B is negative 01/19, hep panel shows Hep A postive, infection control nurse called and say patient was reported as chronic Hep B. Will repeat panel. Follow up results. Fever: 01/20: Patient started on Tigacyle today per Dr. Crane 01/19: Per Nephrology consult, patient has positive blood cultures from the outpatient dialysis center, will continue IV Zosyn. Patient is Patient on Zyson and Vac IV. Follow up blood cultures, as well as urine (patient still makes urine). HIV 01/21: RPR and Cyrtococcal is negative, Toxoplasmosis is still pending. 01/19: Also follow up RPR, cryptocccal, RPR and toxo work up as well. CD4 count is 334, Viral load is below detectable levels. HIV screen is positive, follow up viral load and cell count. Pancytopenia 01/21: Could be related to nutrition per Dr. Husain, continue to monitor cbc Dr. Husain consulted, help appreciated Hyponatremia Na 129, follow up am cmp HTN Norvasc 5mg Hypothryoidism 01/21: Consulted Dr. Nataly Aragon have also ordered total T3 which was low this morning, patient on 75mcg of synthroid. 01/19: His TSH is high and so is his free T4, will need to call his pharmacy to find out what dosage of synthroid he is taking. Continue home symthroid DM accu checks sliding scale Prophylatic measure Carafate 1gm q8h pepcid 20mg hold VTE due to thrombocytpenia. <Justin Munguia - Last Filed: 05/06/17 17:14> Objective - Vital Signs/Intake and Output Vital Signs (last 24 hours): Temp Pulse Resp BP Pulse Ox 98.7 F 88 19 138/91 H 95 01/29/17 15:00 01/29/17 15:00 01/29/17 15:00 01/29/17 15:00 01/29/17 15:00 - Labs Labs: 01/29/17 07:20 01/29/17 07:20 PT 15.5 SECONDS (9.7-12.2) H 01/27/17 08:44 INR 1.3 01/27/17 08:44 APTT 55 SECONDS (21-34) H 01/18/17 11:27 Assessment and Plan (1) Coagulopathy Status: Acute (2) Diabetes Status: Acute (3) Fever Status: Acute (4) HTN (hypertension) Status: Acute (5) Hypothyroidism Status: Acute (6) Pancytopenia Status: Acute (7) Prophylactic measure Status: Acute (8) ESRD (end stage renal disease) Status: Chronic (9) HIV antibody positive Status: Suspected Attending/Attestation - Attestation I have fully participated in the care of the patient.: Yes I have reviewed all pertinent clinical information, including history, physical exam and plan: Yes Notes (Text): The medial started eating it had not yet case seen and discussed with staff and resident
[2017-01-21] MEDS: Saccharomyces Boulardi 250 mg Cap PO SCH ×2 (09:09→17:38)
[2017-01-21] MEDS: Multivitamin Vitamin B Complex (Nephro-Vite) Tab PO SCH (09:09)
[2017-01-21] MEDS: Ammonium Lactate 12% Lotion (225 g) EXT SCH (09:27)
[2017-01-21 10:58] LABS: FT3 9.72 pg/mL (2.77-5.27)
[2017-01-21 11:12] LABS: THYROID STIMULATING HORMONE 5.84 mIU/L (0.46-4.68)
[2017-01-21] MEDS: Ferric Sodium Gluconat Complex 62.5 mg/5 ml Vial IVPB SCH (11:50)
[2017-01-21] MEDS: Paricalcitol 2 mcg/ml Inj IV SCH (11:51)
[2017-01-21] MEDS: Epoetin Alfa Dialysis 20000 UNIT/ML Inj IV SCH (11:52)
[2017-01-21] MEDS ORDERED: Levothyroxine 100 MCG TAB PO ONE (13:00)
--- NOTE | 2017-01-21 17:09 | CP.PCM.PN ---
Subjective - Date & Time of Evaluation Date of Evaluation: 01/21/17 Time of Evaluation: 12:00 - Subjective Subjective: feels much better Objective - Vital Signs/Intake and Output Vital Signs (last 24 hours): Temp Pulse Resp BP Pulse Ox 99.1 F 92 H 20 146/86 96 01/21/17 16:14 01/21/17 16:14 01/21/17 16:14 01/21/17 16:14 01/21/17 16:14 Intake and Output: 01/21/17 01/21/17 06:59 18:59 Intake Total 490 450 Balance 490 450 - Medications Medications: Current Medications Acetaminophen (Tylenol 325mg Tab) 650 mg PO Q6 PRN PRN Reason: Fever >100.4 F Amlodipine Besylate (Norvasc) 5 mg PO DAILY [facility] Last Admin: 01/21/17 14:43 Dose: 5 mg Epoetin Andrés (Procrit) 20,000 unit IV TTS [facility] Stop: 01/28/17 10:01 Last Admin: 01/21/17 11:52 Dose: 20,000 unit Famotidine (Pepcid) 20 mg PO DAILY [facility] Last Admin: 01/21/17 09:09 Dose: 20 mg Ferric Sodium Gluconate Complex (Ferrlecit) 125 mg IVPB TTS [facility] Stop: 01/28/17 10:01 Last Admin: 01/21/17 11:50 Dose: 125 mg Hydromorphone HCl (Dilaudid) 2 mg IVP Q4 PRN PRN Reason: pain Last Admin: 01/21/17 14:44 Dose: 2 mg Vancomycin HCl 1 gm/ Sodium (Chloride) 250 mls @ 166.7 mls/hr IVPB TTS@1700 [facility] Last Admin: 01/19/17 17:10 Dose: 166.7 mls/hr Tigecycline 50 mg/ Dextrose 100 mls @ 100 mls/hr IV Q12H [facility] Tigecycline 100 mg/ Sodium (Chloride) 100 mls @ 100 mls/hr IV ONCE ONE Stop: 01/21/17 17:59 Insulin Aspart (Novolog) 0 unit SC ACHS [facility] PRN Reason: Protocol Last Admin: 01/21/17 12:29 Dose: Not Given Lactic Acid (Lac-Hydrin 12% Lotion (225 G)) 0 gm EXT DAILY [facility] Last Admin: 01/21/17 09:27 Dose: 1 gm Levothyroxine Sodium (Synthroid) 75 mcg PO DAILY@0630 [facility] Metoclopramide HCl (Reglan) 10 mg PO Q6H PRN PRN Reason: Nausea/Vomiting Last Admin: 01/17/17 09:42 Dose: 10 mg Paricalcitol (Zemplar) 2 mcg IV TTS [facility] Stop: 01/28/17 10:01 Last Admin: 01/21/17 11:51 Dose: 2 mcg Saccharomyces Boulardii (Florastor) 250 mg PO BID [facility] Last Admin: 01/21/17 09:09 Dose: 250 mg Sucralfate (Carafate Tab) 1 gm PO Q8H [facility] Last Admin: 01/21/17 09:09 Dose: 1 gm Vitamin B Complex/Vit C/Folic Acid (Nephro-Vladislav) 1 tab PO DAILY [facility] Last Admin: 01/21/17 09:09 Dose: 1 tab - Labs Labs: 01/21/17 07:03 01/21/17 07:03 PT 14.6 SECONDS (9.7-12.2) H 01/18/17 11:27 INR 1.3 01/18/17 11:27 APTT 55 SECONDS (21-34) H 01/18/17 11:27 - Constitutional Appears: Well - Head Exam Head Exam: ATRAUMATIC, NORMAL INSPECTION, NORMOCEPHALIC - Eye Exam Eye Exam: EOMI, Normal appearance, PERRL Pupil Exam: NORMAL ACCOMODATION, PERRL - ENT Exam ENT Exam: Mucous Membranes Moist, Normal Exam - Neck Exam Neck Exam: Full ROM, Normal Inspection. absent: Lymphadenopathy - Respiratory Exam Respiratory Exam: Decreased Breath Sounds - Cardiovascular Exam Cardiovascular Exam: REGULAR RHYTHM, +S1, +S2 - GI/Abdominal Exam GI & Abdominal Exam: Soft, Diminished Bowel Sounds - Rectal Exam Rectal Exam: Deferred Assessment and Plan (1) Coagulopathy Status: Acute (2) Diabetes Status: Acute (3) Fever Status: Acute (4) HTN (hypertension) Status: Acute (5) Hypothyroidism Status: Acute (6) Pancytopenia Status: Acute (7) Prophylactic measure Status: Acute (8) ESRD (end stage renal disease) Status: Chronic (9) HIV antibody positive Status: Suspected - Assessment and Plan (Free Text) Plan: f/u Dr. cooper f/u Dr. myles blood report for hepatitis A +ve continus Iv antibiotics continue Mx as ordered
--- NOTE | 2017-01-21 17:27 | CON ---
DATE: 01/21/2017 HISTORY OF PRESENT ILLNESS: This is a 46-year-old male with known history of type 2 diabetes and hyp ertension, presenting here with problems with dialysis access and is now being referred for endocrine evaluation because of abnormal thyroid function studies. PAST MEDICAL HISTORY: History of type 2 diabetes, currently off oral hypoglycemic therapy. History of hypertension, cardiovascular disease and dyslipidemia. History of diabetic retinopathy with impair ed visual acuity and diabetic polyneuropathy and diabetic nephropathy with end-stage renal disease an d dialysis dependence. History of hepatitis and HIV positive disorder. As mentioned, history of hype rtension, cardiovascular disease and dyslipidemia. History of previous osteomyelitis and a previous endocarditis also was documented. FAMILY HISTORY: Positive for diabetes and hypertension. SOCIAL HISTORY: The patient has supportive family. No known substance use. REVIEW OF SYSTEMS: As mentioned above. Admits to generalized body weakness with easy fatigability a nd tiredness and suboptimal energy level and episodic dizziness and lightheadedness as noted. No jam st pains or palpitations, but admits to progressive shortness of breath, especially on exertion. His oral intake is variable and suboptimal with nausea, dyspepsia, and poor and variable oral intake. N o recent alterations of bowel patterns. PHYSICAL EXAMINATION: GENERAL: This is an overweight male in no apparent distress. VITAL SIGNS: Blood pressure of 150/90, pulse of 88 beats per minute and regular, temperature 98, res pirations 20. Height is 5 feet 11 inches and weight is 234 pounds. HEENT: Head normocephalic. Eyes anicteric with pink conjunctivae. Fundoscopy not possible at this time. Ears, nose and throat otherwise normal. NECK: Supple. Thyroid gland is normal size. No carotid bruits or any cervical adenopathy. CARDIOPULMONARY: Some adynamic precordium. S1, S2 is rapid and regular. LUNGS: Clear to auscultation. ABDOMEN: Flat, soft with positive bowel sounds. EXTREMITIES: No peripheral edema. Pulses are +2 bilaterally. LABORATORY DATA: His chemistries showed a BUN of 23, sodium 130, potassium 4.1, chloride 96, CO2 27, glucose 92 and creatinine 6.5. His TSH is 5.84 with a free T4 of 2.07 and a T3 of 0.87. ASSESSMENT: This is a 46-year-old male with type 2 diabetes, hypertension and associated diabetic mi crovascular complications of retinopathy, polyneuropathy, and nephropathy with end-stage renal diseas e and dialysis dependence, presenting here with a blocked dialysis access and is now being referred f or endocrine evaluation because of abnormal thyroid function studies. He remains clinically euthyroi d and biochemically as early hypothyroidism as noted above. This is most likely related to und erlying autoimmune thyroiditis with Grave's disease as mentioned. The most likely etiology would be the so-called autoimmune thyroiditis, i.e., Christopher's thyroiditis, causing the aforementioned early hypothyroidism and metabolic decompensation. PLAN OF MANAGEMENT: As discussed with the patient and the staff. We will titrate his dose regimen, levothyroxine given as 75 mcg once daily in the morning as ordered. We concur with levothyroxine rep lacement given a.c. breakfast at the higher dose of 75 mcg daily before breakfast as ordered. We brea l titrate incrementally as indicated to optimize metabolic control. We will obtain serial chemistrie s and supplement accordingly as needed. We will also obtain serial thyroid studies accordingly and a djust the dose regimen as indicated. We will follow . Nataly Aragon MD cc: [id number] TT: 01/21/2017 17:26:43 Confirmation # [id number] Dictation # [id number] ln
--- NOTE | 2017-01-21 18:50 | CP.PCM.PN ---
Subjective - Date & Time of Evaluation Date of Evaluation: 01/21/17 Time of Evaluation: 09:00 - Subjective Subjective: feels ok blood isolate from senior living pending consider removal of picc and rx for 21 days with ancef/genta but need sensitivity needs to restart haart rx await echo consider [facility] Objective - Vital Signs/Intake and Output Vital Signs (last 24 hours): Temp Pulse Resp BP Pulse Ox 99.1 F 92 H 20 146/86 96 01/21/17 16:14 01/21/17 16:14 01/21/17 16:14 01/21/17 16:14 01/21/17 16:14 Intake and Output: 01/21/17 01/21/17 06:59 18:59 Intake Total 490 450 Balance 490 450 - Medications Medications: Current Medications Acetaminophen (Tylenol 325mg Tab) 650 mg PO Q6 PRN PRN Reason: Fever >100.4 F Amlodipine Besylate (Norvasc) 5 mg PO DAILY [facility] Last Admin: 01/21/17 14:43 Dose: 5 mg Epoetin Andrés (Procrit) 20,000 unit IV TTS [facility] Stop: 01/28/17 10:01 Last Admin: 01/21/17 11:52 Dose: 20,000 unit Famotidine (Pepcid) 20 mg PO DAILY [facility] Last Admin: 01/21/17 09:09 Dose: 20 mg Ferric Sodium Gluconate Complex (Ferrlecit) 125 mg IVPB TTS [facility] Stop: 01/28/17 10:01 Last Admin: 01/21/17 11:50 Dose: 125 mg Hydromorphone HCl (Dilaudid) 2 mg IVP Q4 PRN PRN Reason: pain Last Admin: 01/21/17 14:44 Dose: 2 mg Vancomycin HCl 1 gm/ Sodium (Chloride) 250 mls @ 166.7 mls/hr IVPB TTS@1700 [facility] Last Admin: 01/19/17 17:10 Dose: 166.7 mls/hr Tigecycline 50 mg/ Dextrose 100 mls @ 100 mls/hr IV Q12H [facility] Insulin Aspart (Novolog) 0 unit SC ACHS [facility] PRN Reason: Protocol Last Admin: 01/21/17 16:30 Dose: Not Given Lactic Acid (Lac-Hydrin 12% Lotion (225 G)) 0 gm EXT DAILY [facility] Last Admin: 01/21/17 09:27 Dose: 1 gm Levothyroxine Sodium (Synthroid) 75 mcg PO DAILY@0630 [facility] Metoclopramide HCl (Reglan) 10 mg PO Q6H PRN PRN Reason: Nausea/Vomiting Last Admin: 01/17/17 09:42 Dose: 10 mg Paricalcitol (Zemplar) 2 mcg IV TTS [facility] Stop: 01/28/17 10:01 Last Admin: 01/21/17 11:51 Dose: 2 mcg Saccharomyces Boulardii (Florastor) 250 mg PO BID [facility] Last Admin: 01/21/17 17:38 Dose: 250 mg Sucralfate (Carafate Tab) 1 gm PO Q8H [facility] Last Admin: 01/21/17 17:38 Dose: 1 gm Vitamin B Complex/Vit C/Folic Acid (Nephro-Vladislav) 1 tab PO DAILY [facility] Last Admin: 01/21/17 09:09 Dose: 1 tab - Labs Labs: 01/21/17 07:03 01/21/17 07:03 PT 14.6 SECONDS (9.7-12.2) H 01/18/17 11:27 INR 1.3 01/18/17 11:27 APTT 55 SECONDS (21-34) H 01/18/17 11:27 - Constitutional Appears: Non-toxic, Cachectic - Head Exam Head Exam: NORMOCEPHALIC - Eye Exam Eye Exam: absent: Scleral icterus - ENT Exam ENT Exam: Mucous Membranes Dry - Neck Exam Neck Exam: absent: Lymphadenopathy - Respiratory Exam Respiratory Exam: Decreased Breath Sounds - Cardiovascular Exam Cardiovascular Exam: REGULAR RHYTHM, +S1, +S2 - GI/Abdominal Exam GI & Abdominal Exam: Distended, Soft. absent: Tenderness - Rectal Exam Rectal Exam: Deferred - Exam Exam: NORMAL INSPECTION - Extremities Exam Extremities Exam: absent: Calf Tenderness, Pedal Edema - Back Exam Back Exam: absent: CVA tenderness (L), CVA tenderness (R), paraspinal tenderness - Neurological Exam Neurological Exam: Alert, Awake, Oriented x3 - Psychiatric Exam Psychiatric exam: Normal Mood - Skin Skin Exam: Dry Assessment and Plan (1) Diabetes Status: Acute (2) Fever Status: Acute (3) HIV antibody positive Status: Acute (4) HTN (hypertension) Status: Acute (5) Hypothyroidism Status: Acute (6) Pancytopenia Status: Acute
--- NOTE | 2017-01-21 22:52 | PN ---
DATE: 01/21/2017 The patient is located in room 672, bed A. REQUESTED BY: Dr. Willian Munguia. REASON FOR FOLLOWUP: End-stage renal disease, continuation of hemodialysis, gram-negative sepsis wit h Klebsiella pneumoniae. HISTORY OF PRESENT ILLNESS: The patient is a 46-year-old middle-aged -Citizen Of [place] male with a hi story of bipolar disorder, hypertension, diabetes, end-stage renal disease, multidrug resistant Klebs iella bacteremia, endocarditis, also fungemia who was recently transferred to [facility] from ____ for physical therapy and continuation of antibiotics. The patient was sent from the di alysis unit on Wednesday after patient having chills and rigors during dialysis and altered mental sta tus and fever. Now blood culture from the dialysis unit is growing gram-negative bacilli in both aer obic and anaerobic bottles and identified is Klebsiella pneumoniae organism, status post removal of t he right femoral vein Perm-A-Cath. The patient has still right upper extremity PICC line. The patie nt is feeling better, not in acute distress and denies any headache, dizziness. Denies any chest keron n, palpitation. Denies any fever, cough. Denies any abdominal pain. The patient underwent hemodial ysis today, had ultrafiltration about 2.5 liters this afternoon. PHYSICAL EXAMINATION: VITAL SIGNS: Blood pressure this morning is 159/96, pulse 82, respiration 20, temperature 98.5, satu ration 100%, height 5 feet 11 inches and weight is 234 pounds. GENERAL: The patient is a 46-year-old middle-aged male, well built, well nourished, not in distress. HEENT: Pupils normal, reactive to light and accommodation. Conjunctivae pink. Sclerae anicteric. Tongue is moist. NECK: Trachea midline. LUNGS: Symmetric on both sides. Bilateral breath sounds present. Clear on auscultation. CARDIOVASCULAR: [place] in the fifth intercostal space midclavicular line. S1 and S2 audible. No murm ur or gallop. ABDOMEN: Normal in appearance, soft, tympanic. No guarding, no rigidity. No hepatosplenomegaly. CENTRAL NERVOUS SYSTEM: The patient is alert, awake, oriented x 3, nonfocal on examination. Cranial nerves II through XII grossly intact. Sensory and motor system is within normal limits. EXTREMITIES: No cyanosis, no clubbing, no edema. CURRENT MEDICATIONS: Include as follows: Carafate 1 gram p.o. q. 8 hours, ferrous gluconate 125 mg IV piggyback 3 times a week, Florastor 250 mg p.o. b.i.d., Lac-Hydrin lotion, Nephro-Vladislav 1 tablet d aily, amlodipine 5 mg daily, Pepcid 20 mg p.o. daily, Procrit 20,000 units 3 times a week, Reglan 10 mg p.o. q 6 hours, Synthroid 75 mcg daily, tigecycline 50 mg q. 12 hours, acetaminophen 325 mg p.r.n. for fever more than 100.4, vancomycin 1 gram 3 times a week and Zosyn 2.25 grams which was discontin ued and Zemplar 2 mcg 3 times a week, Wednesday, and Wednesday. LABORATORY DATA: Include as follows as of 01/21/2017: WBC 3.0, hemoglobin 8.7, hematocrit is 26.8, p latelets 47. Sodium is 130, potassium 4.1, chloride 96, CO2 37, BUN 23, creatinine 6.5, and glucose is 92, calcium 9.4, magnesium 1.9, total bilirubin 1.2, AST 83, ALT 44, alkaline phosphatase is 543, total protein 6.4, and albumin is 2.2, free T4 is 2.07 and total T3 0.87 and TSH is 5.84. As of 01/16, blood culture from the dialysis unit is positive for Klebsiella pneumonia and blood culture fr [facility] in the ER as of 01/16/2017 negative day 5. HIV 1 and 2 antibody screening is reactive and HIV 1 and 2 antigen antibody fourth generation nonreac tive and HIV-1 RNA copies less than 1.30 not detected and low copies 4 mL and HIV-1 RNA copies 4 mL l ess than 20 , not detected and RPR is nonreactive and cryptococcal antigen is negative. SUMMARY: The patient is a 46-year-old middle-aged -Citizen Of [place] male with a history of bipolar di sorder, hypertension, diabetes, Klebsiella pneumoniae bacteremia in the past, endocarditis and fungem ia who was sent from the dialysis unit on 01/16/2017 with fever, chills, altered mental status and blo od culture from the dialysis unit positive for Klebsiella pneumoniae, Zosyn was discontinued and sta rted on tigecycline. 1. End-stage renal disease. Continue hemodialysis 3 times a week, Wednesday, , Wednesday. 2. Status post removal of the right femoral vein Perm-A-Cath yesterday and follow up with the macie payan. 3. Hypertension. 4. Diabetes. Sugars are under control. Consider to change of a PICC line if possible prior to the discharge. Continue antibiotic, vancomyci n and tigecycline as per ID. Thank you for allowing me to participate in your patient's care. The patient underwent hemodialysis this afternoon, had ultrafiltration about 2.5 liters, using left upper extremity AV fistula without a ny complications. Lakhwinder Alcazar MD cc: [phone] TT: 01/21/2017 22:51:21 Confirmation # [id number] Dictation # [id number] mando
--- NOTE | 2017-01-22 04:47 | CP.PCM.PN ---
Subjective - Date & Time of Evaluation Date of Evaluation: 01/21/17 Time of Evaluation: 20:20 - Subjective Subjective: No complaints. Objective - Vital Signs/Intake and Output Vital Signs (last 24 hours): Temp Pulse Resp BP Pulse Ox 98.4 F 91 H 20 148/93 H 98 01/21/17 23:00 01/21/17 23:38 01/21/17 23:00 01/21/17 23:00 01/21/17 23:00 Intake and Output: 01/21/17 01/22/17 18:59 06:59 Intake Total 450 Balance 450 - Medications Medications: Current Medications Acetaminophen (Tylenol 325mg Tab) 650 mg PO Q6 PRN PRN Reason: Fever >100.4 F Amlodipine Besylate (Norvasc) 5 mg PO DAILY [facility] Last Admin: 01/21/17 14:43 Dose: 5 mg Epoetin Andrés (Procrit) 20,000 unit IV TTS [facility] Stop: 01/28/17 10:01 Last Admin: 01/21/17 11:52 Dose: 20,000 unit Famotidine (Pepcid) 20 mg PO DAILY [facility] Last Admin: 01/21/17 09:09 Dose: 20 mg Ferric Sodium Gluconate Complex (Ferrlecit) 125 mg IVPB TTS [facility] Stop: 01/28/17 10:01 Last Admin: 01/21/17 11:50 Dose: 125 mg Vancomycin HCl 1 gm/ Sodium (Chloride) 250 mls @ 166.7 mls/hr IVPB TTS@1700 [facility] Last Admin: 01/21/17 19:45 Dose: 166.7 mls/hr Tigecycline 50 mg/ Dextrose 100 mls @ 100 mls/hr IV Q12H [facility] Insulin Aspart (Novolog) 0 unit SC ACHS [facility] PRN Reason: Protocol Last Admin: 01/21/17 16:30 Dose: Not Given Lactic Acid (Lac-Hydrin 12% Lotion (225 G)) 0 gm EXT DAILY [facility] Last Admin: 01/21/17 09:27 Dose: 1 gm Levothyroxine Sodium (Synthroid) 75 mcg PO DAILY@0630 [facility] Metoclopramide HCl (Reglan) 10 mg PO Q6H PRN PRN Reason: Nausea/Vomiting Last Admin: 01/17/17 09:42 Dose: 10 mg Paricalcitol (Zemplar) 2 mcg IV TTS [facility] Stop: 01/28/17 10:01 Last Admin: 01/21/17 11:51 Dose: 2 mcg Saccharomyces Boulardii (Florastor) 250 mg PO BID [facility] Last Admin: 01/21/17 17:38 Dose: 250 mg Sucralfate (Carafate Tab) 1 gm PO Q8H [facility] Last Admin: 01/22/17 02:27 Dose: 1 gm Vitamin B Complex/Vit C/Folic Acid (Nephro-Vladislav) 1 tab PO DAILY [facility] Last Admin: 01/21/17 09:09 Dose: 1 tab - Labs Labs: 01/21/17 07:03 01/21/17 07:03 PT 14.6 SECONDS (9.7-12.2) H 01/18/17 11:27 INR 1.3 01/18/17 11:27 APTT 55 SECONDS (21-34) H 01/18/17 11:27 - Head Exam Head Exam: ATRAUMATIC - Eye Exam Eye Exam: Normal appearance - ENT Exam ENT Exam: Mucous Membranes Dry - Respiratory Exam Respiratory Exam: NORMAL BREATHING PATTERN - Cardiovascular Exam Cardiovascular Exam: +S1, +S2 Assessment and Plan (1) Pancytopenia Assessment & Plan: s/p prbc transfusion feeling better agreeable to bone marrow biopsy in AM Status: Acute (2) Coagulopathy Status: Acute
[2017-01-22] MEDS: Tigecycline 50 MG in Dextrose 5% In Water 100 ML IV SCH ×2 (05:07→17:36)
[2017-01-22] MEDS: Levothyroxine 75 MCG TAB PO SCH (06:14)
[2017-01-22 07:35] LABS: MEAN CELL VOLUME 85.7 fL (80.0-94.0); MEAN CORPUSCULAR HEMOGLOBIN 28.6 pg (27.0-31.0); MEAN CORPUSCULAR HGB CONC 33.3 g/dL (33.0-37.0); MEAN PLATELET VOLUME 9.1 fL (7.2-11.7); PLATELET COUNT 58 K/uL (130-400); RED CELL DISTRIBUTION WIDTH 16.9 % (11.5-14.5)
[2017-01-22 07:48] LABS: POTASSIUM 3.6 mmol/L (3.6-5.2)
[2017-01-22 07:50] LABS: BILIRUBIN,TOTAL 1.2 mg/dL (0.2-1.3)
[2017-01-22 07:51] LABS: MAGNESIUM 1.8 mg/dL (1.6-2.3)
[2017-01-22] MEDS: (Novolog) Insulin Aspart, Recombinant 100 u/ml 10 ml vial SC SCH ×3 (08:15→17:18)
[2017-01-22 08:45] LABS: T4 5.28 ug/dL (5.5-11.0)
[2017-01-22 08:57] LABS: ALB/GLOB RATIO 0.5 (1.0-2.1); TOTAL PROTEIN 6.4 g/dL (6.3-8.3)
[2017-01-22 08:58] LABS: CALCIUM 8.9 mg/dl (8.6-10.4)
[2017-01-22 08:59] LABS: THYROID STIMULATING HORMONE 6.13 mIU/L (0.46-4.68)
--- NOTE | 2017-01-22 10:18 | CP.PCM.PN ---
Subjective - Date & Time of Evaluation Date of Evaluation: 01/22/17 Time of Evaluation: 09:00 - Subjective Subjective: Dr. Stanton perry service: Patient seen in room. He is complaing of chronic back pain and is asking for pain medication. He says he is feeling better, no fever, chills, nausea, vomiting, hematuria, or blood in stool. Objective - Vital Signs/Intake and Output Vital Signs (last 24 hours): Temp Pulse Resp BP Pulse Ox 98.4 F 88 18 151/94 H 99 01/22/17 08:15 01/22/17 08:15 01/22/17 08:15 01/22/17 08:15 01/22/17 08:15 Intake and Output: 01/22/17 01/22/17 06:59 18:59 Intake Total 240 Balance 240 - Medications Medications: Current Medications Acetaminophen (Tylenol 325mg Tab) 650 mg PO Q6 PRN PRN Reason: Fever >100.4 F Amlodipine Besylate (Norvasc) 5 mg PO DAILY [facility] Last Admin: 01/21/17 14:43 Dose: 5 mg Epoetin Andrés (Procrit) 20,000 unit IV TTS [facility] Stop: 01/28/17 10:01 Last Admin: 01/21/17 11:52 Dose: 20,000 unit Famotidine (Pepcid) 20 mg PO DAILY [facility] Last Admin: 01/21/17 09:09 Dose: 20 mg Ferric Sodium Gluconate Complex (Ferrlecit) 125 mg IVPB TTS [facility] Stop: 01/28/17 10:01 Last Admin: 01/21/17 11:50 Dose: 125 mg Vancomycin HCl 1 gm/ Sodium (Chloride) 250 mls @ 166.7 mls/hr IVPB TTS@1700 [facility] Last Admin: 01/21/17 19:45 Dose: 166.7 mls/hr Tigecycline 50 mg/ Dextrose 100 mls @ 100 mls/hr IV Q12H [facility] Last Admin: 01/22/17 05:07 Dose: 100 mls/hr Insulin Aspart (Novolog) 0 unit SC ACHS [facility] PRN Reason: Protocol Last Admin: 01/22/17 08:15 Dose: Not Given Lactic Acid (Lac-Hydrin 12% Lotion (225 G)) 0 gm EXT DAILY [facility] Last Admin: 01/21/17 09:27 Dose: 1 gm Levothyroxine Sodium (Synthroid) 75 mcg PO DAILY@0630 [facility] Last Admin: 01/22/17 06:14 Dose: 75 mcg Metoclopramide HCl (Reglan) 10 mg PO Q6H PRN PRN Reason: Nausea/Vomiting Last Admin: 01/17/17 09:42 Dose: 10 mg Paricalcitol (Zemplar) 2 mcg IV TTS [facility] Stop: 01/28/17 10:01 Last Admin: 01/21/17 11:51 Dose: 2 mcg Saccharomyces Boulardii (Florastor) 250 mg PO BID [facility] Last Admin: 01/21/17 17:38 Dose: 250 mg Sucralfate (Carafate Tab) 1 gm PO Q8H [facility] Last Admin: 01/22/17 02:27 Dose: 1 gm Vitamin B Complex/Vit C/Folic Acid (Nephro-Vladislav) 1 tab PO DAILY [facility] Last Admin: 01/21/17 09:09 Dose: 1 tab - Labs Labs: 01/22/17 07:17 01/22/17 07:17 PT 14.6 SECONDS (9.7-12.2) H 01/18/17 11:27 INR 1.3 01/18/17 11:27 APTT 55 SECONDS (21-34) H 01/18/17 11:27 - Constitutional Appears: Non-toxic, No Acute Distress - Head Exam Head Exam: NORMAL INSPECTION - Eye Exam Eye Exam: Normal appearance Pupil Exam: NORMAL ACCOMODATION - ENT Exam ENT Exam: Normal Exam - Respiratory Exam Respiratory Exam: Clear to Ausculation Bilateral. absent: Rales, Rhonchi, Wheezes - Cardiovascular Exam Cardiovascular Exam: REGULAR RHYTHM, RRR, +S1, +S2. absent: Gallop, Rubs - GI/Abdominal Exam GI & Abdominal Exam: Soft, Normal Bowel Sounds. absent: Tenderness - Extremities Exam Extremities Exam: Normal Inspection. absent: Pedal Edema - Back Exam Back Exam: NORMAL INSPECTION - Psychiatric Exam Psychiatric exam: Normal Affect, Normal Mood - Skin Skin Exam: Normal Color Assessment and Plan - Assessment and Plan (Free Text) Assessment: Assessment: Heptatitis: 01/21: repeat panel is shows hep A positive but Hep B is negative 01/19, hep panel shows Hep A postive, infection control nurse called and say patient was reported as chronic Hep B. Will repeat panel. Follow up results. Fever: 4/21: Patient bandemia but no fever, day 3 of Tigicyline, ID consult Dr. Crane 01/20: Patient started on Tigacyle today per Dr. Crane 01/19: Per Nephrology consult, patient has positive blood cultures from the outpatient dialysis center, will continue IV Zosyn. Patient is Patient on Zyson and Vac IV. Follow up blood cultures, as well as urine (patient still makes urine). HIV 01/21: RPR and Cyrtococcal is negative, Toxoplasmosis is still pending. 01/19: Also follow up RPR, cryptocccal, RPR and toxo work up as well. CD4 count is 334, Viral load is below detectable levels. HIV screen is positive, follow up viral load and cell count. Pancytopenia 01/22: Bone marrow biopsy today performed by Dr. Husain. 01/21: Could be related to nutrition per Dr. Husain, continue to monitor cbc Dr. Husain consulted, help appreciated Hyponatremia Na 129, follow up am cmp HTN Norvasc 5mg Hypothryoidism 01/22: 75mcg of Synthroid 01/21: Consulted Dr. Nataly Aragon have also ordered total T3 which was low this morning, patient on 75mcg of synthroid. 01/19: His TSH is high and so is his free T4, will need to call his pharmacy to find out what dosage of synthroid he is taking. Continue home symthroid DM accu checks sliding scale Prophylatic measure Carafate 1gm q8h pepcid 20mg hold VTE due to thrombocytpenia.
--- NOTE | 2017-01-22 11:01 | US ---
HISTORY: rule out thyroid nodule TECHNIQUE: Sonographic evaluation of the thyroid gland. COMPARISON: None. FINDINGS: RIGHT LOBE: Measures 5.6 x 1 x 1.3 cm. Normal echotexture and flow. Nodules: None LEFT LOBE: Measures 3.2 x 0.8 x 1 cm. Normal echotexture and flow. Nodules: None ISTHMUS: Measures 0.2 cm. Normal echotexture and flow. Nodules: None OTHER FINDINGS: None . IMPRESSION: No large nodules identified.
[2017-01-22 11:05] LABS: EOS # 0.2 K/uL (0.0-0.7); LYMPH # 1.2 K/uL (1.0-4.3); MONO # 0.4 K/uL (0.0-0.8)
[2017-01-22] MEDS: Saccharomyces Boulardi 250 mg Cap PO SCH ×2 (11:08→17:31)
[2017-01-22] MEDS: Ammonium Lactate 12% Lotion (225 g) EXT SCH (11:09)
[2017-01-22] MEDS: Multivitamin Vitamin B Complex (Nephro-Vite) Tab PO SCH (11:10)
[2017-01-22 11:14] LABS: EOSINOPHIL 5 % (0-4); MYELOCYTE 1 % (0-0); NEUTROPHIL 41 % (50-75); TOTAL CELLS COUNTED 100
[2017-01-22] MEDS ORDERED: Lidocaine 2% Inj (20ml) IV ONE (11:45)
--- NOTE | 2017-01-22 14:34 | CP.PCM.PN ---
Subjective - Date & Time of Evaluation Date of Evaluation: 01/22/17 Time of Evaluation: 11:40 - Subjective Subjective: clinically same Objective - Vital Signs/Intake and Output Vital Signs (last 24 hours): Temp Pulse Resp BP Pulse Ox 98.4 F 93 H 18 161/99 H 99 01/22/17 08:15 01/22/17 12:00 01/22/17 08:15 01/22/17 12:00 01/22/17 08:15 Intake and Output: 01/22/17 01/22/17 06:59 18:59 Intake Total 240 Balance 240 - Medications Medications: Current Medications Acetaminophen (Tylenol 325mg Tab) 650 mg PO Q6 PRN PRN Reason: Fever >100.4 F Amlodipine Besylate (Norvasc) 5 mg PO DAILY [facility] Last Admin: 01/22/17 11:11 Dose: 5 mg Epoetin Andrés (Procrit) 20,000 unit IV TTS [facility] Stop: 01/28/17 10:01 Last Admin: 01/21/17 11:52 Dose: 20,000 unit Famotidine (Pepcid) 20 mg PO DAILY [facility] Last Admin: 01/22/17 11:12 Dose: 20 mg Ferric Sodium Gluconate Complex (Ferrlecit) 125 mg IVPB TTS [facility] Stop: 01/28/17 10:01 Last Admin: 01/21/17 11:50 Dose: 125 mg Hydromorphone HCl (Dilaudid) 0.5 mg IVP Q6H PRN PRN Reason: Pain, severe (8-10) Stop: 01/24/17 11:33 Hydromorphone HCl (Dilaudid) 1 mg IVP Q4H PRN PRN Reason: Pain, severe (8-10) Stop: 01/23/17 11:30 Vancomycin HCl 1 gm/ Sodium (Chloride) 250 mls @ 166.7 mls/hr IVPB TTS@1700 [facility] Last Admin: 01/21/17 19:45 Dose: 166.7 mls/hr Tigecycline 50 mg/ Dextrose 100 mls @ 100 mls/hr IV Q12H [facility] Last Admin: 01/22/17 05:07 Dose: 100 mls/hr Insulin Aspart (Novolog) 0 unit SC ACHS [facility] PRN Reason: Protocol Last Admin: 01/22/17 12:30 Dose: Not Given Lactic Acid (Lac-Hydrin 12% Lotion (225 G)) 0 gm EXT DAILY [facility] Last Admin: 01/22/17 11:09 Dose: 225 gm Levothyroxine Sodium (Synthroid) 75 mcg PO DAILY@0630 [facility] Last Admin: 01/22/17 06:14 Dose: 75 mcg Metoclopramide HCl (Reglan) 10 mg PO Q6H PRN PRN Reason: Nausea/Vomiting Last Admin: 01/17/17 09:42 Dose: 10 mg Morphine Sulfate (Morphine) 2 mg IVP Q8H PRN PRN Reason: Pain, severe (8-10) Stop: 01/25/17 11:34 Paricalcitol (Zemplar) 2 mcg IV TTS [facility] Stop: 01/28/17 10:01 Last Admin: 01/21/17 11:51 Dose: 2 mcg Saccharomyces Boulardii (Florastor) 250 mg PO BID [facility] Last Admin: 01/22/17 11:08 Dose: 250 mg Sucralfate (Carafate Tab) 1 gm PO Q8H [facility] Last Admin: 01/22/17 11:08 Dose: 1 gm Vitamin B Complex/Vit C/Folic Acid (Nephro-Vladislav) 1 tab PO DAILY [facility] Last Admin: 01/22/17 11:10 Dose: 1 tab - Labs Labs: 01/22/17 07:17 01/22/17 07:17 PT 14.6 SECONDS (9.7-12.2) H 01/18/17 11:27 INR 1.3 01/18/17 11:27 APTT 55 SECONDS (21-34) H 01/18/17 11:27 - Constitutional Appears: Well - Head Exam Head Exam: ATRAUMATIC, NORMAL INSPECTION, NORMOCEPHALIC - Eye Exam Eye Exam: EOMI, Normal appearance, PERRL Pupil Exam: NORMAL ACCOMODATION, PERRL - ENT Exam ENT Exam: Mucous Membranes Moist, Normal Exam - Neck Exam Neck Exam: Full ROM, Normal Inspection. absent: Lymphadenopathy - Respiratory Exam Respiratory Exam: Decreased Breath Sounds - Cardiovascular Exam Cardiovascular Exam: REGULAR RHYTHM, +S1, +S2 - GI/Abdominal Exam GI & Abdominal Exam: Soft, Diminished Bowel Sounds - Rectal Exam Rectal Exam: Deferred Assessment and Plan - Assessment and Plan (Free Text) Plan: Dr. allison myles Bone marrow biopsy is done by allison wray to r/o pancytopania continue iv antibiotics as ordeered f/u labs
[2017-01-22 15:33] LABS: TOXOPLASMA IGG AB 2.88 (<0.91); TOXOPLASMA IGM AB Negative (Negative)
[2017-01-22] MEDS: HYDROmorphone 1 mg/ml ISec IVP PRN ×2 (17:36→22:12)
--- NOTE | 2017-01-22 18:50 | CP.PCM.PN ---
Subjective - Date & Time of Evaluation Date of Evaluation: 01/22/17 Time of Evaluation: 07:00 - Subjective Subjective: S/P GRAM NEG SEPSIS FROM [facility] ONCE CULTURES AVAILABLE CONSIDER D/C PICC AND CONT ANTIBIOTIC TO DISCUSS WITH DR PAYTON Objective - Vital Signs/Intake and Output Vital Signs (last 24 hours): Temp Pulse Resp BP Pulse Ox 98.6 F 95 H 20 153/97 H 99 01/22/17 16:48 01/22/17 16:48 01/22/17 16:48 01/22/17 16:48 01/22/17 16:48 Intake and Output: 01/22/17 01/22/17 06:59 18:59 Intake Total 240 400 Balance 240 400 - Medications Medications: Current Medications Acetaminophen (Tylenol 325mg Tab) 650 mg PO Q6 PRN PRN Reason: Fever >100.4 F Amlodipine Besylate (Norvasc) 5 mg PO DAILY [facility] Last Admin: 01/22/17 11:11 Dose: 5 mg Epoetin Andrés (Procrit) 20,000 unit IV TTS [facility] Stop: 01/28/17 10:01 Last Admin: 01/21/17 11:52 Dose: 20,000 unit Famotidine (Pepcid) 20 mg PO DAILY [facility] Last Admin: 01/22/17 11:12 Dose: 20 mg Ferric Sodium Gluconate Complex (Ferrlecit) 125 mg IVPB TTS [facility] Stop: 01/28/17 10:01 Last Admin: 01/21/17 11:50 Dose: 125 mg Hydromorphone HCl (Dilaudid) 0.5 mg IVP Q6H PRN PRN Reason: Pain, severe (8-10) Stop: 01/24/17 11:33 Hydromorphone HCl (Dilaudid) 1 mg IVP Q4H PRN PRN Reason: Pain, severe (8-10) Stop: 01/23/17 11:30 Last Admin: 01/22/17 17:36 Dose: 1 mg Vancomycin HCl 1 gm/ Sodium (Chloride) 250 mls @ 166.7 mls/hr IVPB TTS@1700 [facility] Last Admin: 01/21/17 19:45 Dose: 166.7 mls/hr Tigecycline 50 mg/ Dextrose 100 mls @ 100 mls/hr IV Q12H [facility] Last Admin: 01/22/17 17:36 Dose: 100 mls/hr Insulin Aspart (Novolog) 0 unit SC ACHS [facility] PRN Reason: Protocol Last Admin: 01/22/17 17:18 Dose: Not Given Lactic Acid (Lac-Hydrin 12% Lotion (225 G)) 0 gm EXT DAILY [facility] Last Admin: 01/22/17 11:09 Dose: 225 gm Levothyroxine Sodium (Synthroid) 75 mcg PO DAILY@0630 [facility] Last Admin: 01/22/17 06:14 Dose: 75 mcg Metoclopramide HCl (Reglan) 10 mg PO Q6H PRN PRN Reason: Nausea/Vomiting Last Admin: 01/17/17 09:42 Dose: 10 mg Morphine Sulfate (Morphine) 2 mg IVP Q8H PRN PRN Reason: Pain, severe (8-10) Stop: 01/25/17 11:34 Paricalcitol (Zemplar) 2 mcg IV TTS [facility] Stop: 01/28/17 10:01 Last Admin: 01/21/17 11:51 Dose: 2 mcg Saccharomyces Boulardii (Florastor) 250 mg PO BID [facility] Last Admin: 01/22/17 17:31 Dose: 250 mg Sucralfate (Carafate Tab) 1 gm PO Q8H [facility] Last Admin: 01/22/17 17:31 Dose: 1 gm Vitamin B Complex/Vit C/Folic Acid (Nephro-Vladislav) 1 tab PO DAILY [facility] Last Admin: 01/22/17 11:10 Dose: 1 tab - Labs Labs: 01/22/17 07:17 01/22/17 07:17 PT 14.6 SECONDS (9.7-12.2) H 01/18/17 11:27 INR 1.3 01/18/17 11:27 APTT 55 SECONDS (21-34) H 01/18/17 11:27 - Constitutional Appears: Non-toxic, Cachectic, Chronically Ill - Head Exam Head Exam: ATRAUMATIC, NORMAL INSPECTION, NORMOCEPHALIC - Eye Exam Eye Exam: PERRL. absent: Scleral icterus - ENT Exam ENT Exam: Mucous Membranes Dry - Neck Exam Neck Exam: absent: Lymphadenopathy - Respiratory Exam Respiratory Exam: Decreased Breath Sounds, Clear to Ausculation Bilateral - Cardiovascular Exam Cardiovascular Exam: REGULAR RHYTHM, +S1, +S2 - GI/Abdominal Exam GI & Abdominal Exam: Distended, Soft. absent: Tenderness - Rectal Exam Rectal Exam: Deferred - Exam Exam: NORMAL INSPECTION Assessment and Plan (1) Diabetes Status: Acute (2) Fever Status: Acute (3) HIV antibody positive Status: Acute (4) HTN (hypertension) Status: Acute (5) Hypothyroidism Status: Acute (6) Pancytopenia Status: Acute
--- NOTE | 2017-01-23 01:22 | CP.PCM.PN ---
Subjective - Date & Time of Evaluation Date of Evaluation: 01/22/17 Time of Evaluation: 12:00 - Subjective Subjective: Bone marrow aspiration and biopsy procedure Indication: Pancytopenia - Time-out was called to confirm: patients name and date of , procedure, side and site of biopsy, safety procedures followed. - Performed by: Weston Husain M.D. - Other physicians present: Fahad Vogel D.O. - Informed consent: signed by patient. - Aspiration and biopsy site: [left]superior posterior iliac crest. - Patient position: [right lateral decubitus] - Preparation and technique: sterile preparation of site with Betadyne, Chloraprep, draped to expose aspirate/biopsy area, local anesthesia with 2% lidocaine (approximately 10ml), frequent pressure application on incision to maintain hemostasis. - Tissue obtained: bone marrow aspirate (minimal despite reposition x 2) and biopsy were successfully obtained in sterile manner. - Toleration of procedure and any complications: slight localized bleeding (<1ml ). Patient tolerated procedure well with minimal pain. Objective - Vital Signs/Intake and Output Vital Signs (last 24 hours): Temp Pulse Resp BP Pulse Ox 98.6 F 95 H 20 153/97 H 99 01/22/17 16:48 01/22/17 16:48 01/22/17 16:48 01/22/17 16:48 01/22/17 16:48 Intake and Output: 01/22/17 01/23/17 18:59 06:59 Intake Total 400 420 Balance 400 420 - Medications Medications: Current Medications Acetaminophen (Tylenol 325mg Tab) 650 mg PO Q6 PRN PRN Reason: Fever >100.4 F Amlodipine Besylate (Norvasc) 5 mg PO DAILY [facility] Last Admin: 01/22/17 11:11 Dose: 5 mg Epoetin Andrés (Procrit) 20,000 unit IV TTS [facility] Stop: 01/28/17 10:01 Last Admin: 01/21/17 11:52 Dose: 20,000 unit Famotidine (Pepcid) 20 mg PO DAILY [facility] Last Admin: 01/22/17 11:12 Dose: 20 mg Ferric Sodium Gluconate Complex (Ferrlecit) 125 mg IVPB TTS [facility] Stop: 01/28/17 10:01 Last Admin: 01/21/17 11:50 Dose: 125 mg Hydromorphone HCl (Dilaudid) 0.5 mg IVP Q6H PRN PRN Reason: Pain, severe (8-10) Stop: 01/24/17 11:33 Hydromorphone HCl (Dilaudid) 1 mg IVP Q4H PRN PRN Reason: Pain, severe (8-10) Stop: 01/23/17 11:30 Last Admin: 01/22/17 22:12 Dose: 1 mg Vancomycin HCl 1 gm/ Sodium (Chloride) 250 mls @ 166.7 mls/hr IVPB TTS@1700 [facility] Last Admin: 01/21/17 19:45 Dose: 166.7 mls/hr Tigecycline 50 mg/ Dextrose 100 mls @ 100 mls/hr IV Q12H [facility] Last Admin: 01/22/17 17:36 Dose: 100 mls/hr Insulin Aspart (Novolog) 0 unit SC ACHS [facility] PRN Reason: Protocol Last Admin: 01/22/17 17:18 Dose: Not Given Lactic Acid (Lac-Hydrin 12% Lotion (225 G)) 0 gm EXT DAILY [facility] Last Admin: 01/22/17 11:09 Dose: 225 gm Levothyroxine Sodium (Synthroid) 75 mcg PO DAILY@0630 [facility] Last Admin: 01/22/17 06:14 Dose: 75 mcg Metoclopramide HCl (Reglan) 10 mg PO Q6H PRN PRN Reason: Nausea/Vomiting Last Admin: 01/17/17 09:42 Dose: 10 mg Morphine Sulfate (Morphine) 2 mg IVP Q8H PRN PRN Reason: Pain, severe (8-10) Stop: 01/25/17 11:34 Paricalcitol (Zemplar) 2 mcg IV TTS [facility] Stop: 01/28/17 10:01 Last Admin: 01/21/17 11:51 Dose: 2 mcg Saccharomyces Boulardii (Florastor) 250 mg PO BID [facility] Last Admin: 01/22/17 17:31 Dose: 250 mg Sucralfate (Carafate Tab) 1 gm PO Q8H [facility] Last Admin: 01/22/17 17:31 Dose: 1 gm Vitamin B Complex/Vit C/Folic Acid (Nephro-Vladislav) 1 tab PO DAILY [facility] Last Admin: 01/22/17 11:10 Dose: 1 tab - Labs Labs: 01/22/17 07:17 04/21/17 07:17 PT 14.6 SECONDS (9.7-12.2) H 01/18/17 11:27 INR 1.3 01/18/17 11:27 APTT 55 SECONDS (21-34) H 01/18/17 11:27 Assessment and Plan (1) Pancytopenia Status: Acute (2) Coagulopathy Status: Acute
[2017-01-23] MEDS: HYDROmorphone 1 mg/ml ISec IVP PRN ×2 (02:21→08:19)
[2017-01-23] MEDS: Tigecycline 50 MG in Dextrose 5% In Water 100 ML IV SCH ×2 (05:20→18:49)
[2017-01-23] MEDS: Levothyroxine 75 MCG TAB PO SCH (06:14)
[2017-01-23] MEDS: (Novolog) Insulin Aspart, Recombinant 100 u/ml 10 ml vial SC SCH ×4 (08:03→21:40)
[2017-01-23] MEDS: Saccharomyces Boulardi 250 mg Cap PO SCH ×2 (09:30→18:50)
[2017-01-23] MEDS: Multivitamin Vitamin B Complex (Nephro-Vite) Tab PO SCH (09:31)
[2017-01-23] MEDS: Ammonium Lactate 12% Lotion (225 g) EXT SCH (09:33)
--- NOTE | 2017-01-23 10:46 | PN ---
DATE: 01/23/2017 ROOM: 672 SUBJECTIVE: This is a 46-year-old male with recent overt hypothyroidism now being followed closely f or metabolic management. He is also undergoing hematologic workup for an underlying coagulopathy wit h leukopenia and anemia on the background of HIV positive disorder. His latest hemoglobin is 9 with hematocrit of 27 and WBC of 4.0. His initial level of 1.9. His platelets are also the low side of n ormal, ranging from 36 to 58,000 count as noted. His latest chemistries include a BUN of 16, sodium 130, potassium 3.6, chloride 94, CO2 29, glucose 100, and creatinine 4.9. His liver transaminases ar e elevated and the latest thyroid study showed a T4 of 5.28 with a TSH of 6.13 and a free T4 of 2.18. So at this time, he remains clinically euthyroid and biochemically has early hypothyroidism, curren tly tolerating levothyroxine therapy as given. So at this time, we will continue the levothyroxine g iven as 75 mcg daily as ordered and we will titrate incrementally as indicated to optimize metabolic control. We will obtain serial chemistries and supplement accordingly as needed. We will follow. Nataly Aragon MD cc: [id number] TT: 01/23/2017 10:45:37 Confirmation # [id number] Dictation # [id number] mando
[2017-01-23] MEDS: HYDROmorphone 0.5 mg/0.5 ml ISec IVP PRN ×2 (13:50→18:50)
--- NOTE | 2017-01-23 14:04 | CP.PCM.PN ---
Subjective - Date & Time of Evaluation Date of Evaluation: 01/23/17 Time of Evaluation: 12:00 - Subjective Subjective: no new complains Objective - Vital Signs/Intake and Output Vital Signs (last 24 hours): Temp Pulse Resp BP Pulse Ox 98.5 F 82 18 155/95 H 97 01/23/17 08:17 01/23/17 13:49 01/23/17 08:17 01/23/17 13:49 01/23/17 08:17 Intake and Output: 01/23/17 01/23/17 06:59 18:59 Intake Total 420 Balance 420 - Medications Medications: Current Medications Acetaminophen (Tylenol 325mg Tab) 650 mg PO Q6 PRN PRN Reason: Fever >100.4 F Amlodipine Besylate (Norvasc) 5 mg PO DAILY [facility] Last Admin: 01/22/17 11:11 Dose: 5 mg Epoetin Andrés (Procrit) 20,000 unit IV TTS [facility] Stop: 01/28/17 10:01 Last Admin: 01/21/17 11:52 Dose: 20,000 unit Famotidine (Pepcid) 20 mg PO DAILY [facility] Last Admin: 01/23/17 09:31 Dose: 20 mg Ferric Sodium Gluconate Complex (Ferrlecit) 125 mg IVPB TTS [facility] Stop: 01/28/17 10:01 Last Admin: 01/21/17 11:50 Dose: 125 mg Hydromorphone HCl (Dilaudid) 0.5 mg IVP Q6H PRN PRN Reason: Pain, severe (8-10) Stop: 01/24/17 11:33 Last Admin: 01/23/17 13:50 Dose: 0.5 mg Vancomycin HCl 1 gm/ Sodium (Chloride) 250 mls @ 166.7 mls/hr IVPB TTS@1700 [facility] Last Admin: 01/21/17 19:45 Dose: 166.7 mls/hr Tigecycline 50 mg/ Dextrose 100 mls @ 100 mls/hr IV Q12H [facility] Last Admin: 01/23/17 05:20 Dose: 100 mls/hr Insulin Aspart (Novolog) 0 unit SC ACHS [facility] PRN Reason: Protocol Last Admin: 01/23/17 12:27 Dose: Not Given Lactic Acid (Lac-Hydrin 12% Lotion (225 G)) 0 gm EXT DAILY [facility] Last Admin: 01/23/17 09:33 Dose: 1 applic Levothyroxine Sodium (Synthroid) 75 mcg PO DAILY@0630 [facility] Last Admin: 01/23/17 06:14 Dose: 75 mcg Metoclopramide HCl (Reglan) 10 mg PO Q6H PRN PRN Reason: Nausea/Vomiting Last Admin: 01/17/17 09:42 Dose: 10 mg Morphine Sulfate (Morphine) 2 mg IVP Q8H PRN PRN Reason: Pain, severe (8-10) Stop: 01/25/17 11:34 Paricalcitol (Zemplar) 2 mcg IV TTS [facility] Stop: 01/28/17 10:01 Last Admin: 01/21/17 11:51 Dose: 2 mcg Saccharomyces Boulardii (Florastor) 250 mg PO BID [facility] Last Admin: 01/23/17 09:30 Dose: 250 mg Sucralfate (Carafate Tab) 1 gm PO Q8H [facility] Last Admin: 01/23/17 09:31 Dose: 1 gm Vitamin B Complex/Vit C/Folic Acid (Nephro-Vladislav) 1 tab PO DAILY [facility] Last Admin: 01/23/17 09:31 Dose: 1 tab - Labs Labs: 01/22/17 07:17 01/22/17 07:17 PT 14.6 SECONDS (9.7-12.2) H 01/18/17 11:27 INR 1.3 01/18/17 11:27 APTT 55 SECONDS (21-34) H 01/18/17 11:27 - Constitutional Appears: Well - Head Exam Head Exam: ATRAUMATIC, NORMAL INSPECTION, NORMOCEPHALIC - Eye Exam Eye Exam: EOMI, Normal appearance, PERRL Pupil Exam: NORMAL ACCOMODATION, PERRL - ENT Exam ENT Exam: Mucous Membranes Moist, Normal Exam - Neck Exam Neck Exam: Full ROM, Normal Inspection. absent: Lymphadenopathy - Respiratory Exam Respiratory Exam: Decreased Breath Sounds - Cardiovascular Exam Cardiovascular Exam: REGULAR RHYTHM, +S1, +S2 - GI/Abdominal Exam GI & Abdominal Exam: Soft, Diminished Bowel Sounds - Rectal Exam Rectal Exam: Deferred Assessment and Plan - Assessment and Plan (Free Text) Plan: Dr. Rodrigue Crane continue Iv antibiotics as ordered f/u labs
[2017-01-23] MEDS: Epoetin Alfa Dialysis 20000 UNIT/ML Inj IV SCH (15:10)
[2017-01-23] MEDS: Paricalcitol 2 mcg/ml Inj IV SCH (15:11)
[2017-01-23] MEDS: Ferric Sodium Gluconat Complex 62.5 mg/5 ml Vial IVPB SCH (15:13)
--- NOTE | 2017-01-23 15:35 | CARD ---
APPROVED REPORT EXAM: Two-dimensional and M-mode echocardiogram with Doppler and color Doppler. Other Information Quality : AverageRhythm : NSR INDICATION FEVER, ESRD, R/O VEGETATION, HIV RISK FACTORS Hypertension Diabetes M-Mode DIMENSIONS RVDd0.98 (2.1-3.2cm)Left Atrium (MM)4.30 (2.5-4.0cm) IVSd1.24 (0.7-1.1cm)Aortic Root3.59 (2.2-3.7cm) LVDd5.24 (4.0-5.6cm)Aortic Cusp Exc.2.03 (1.5-2.0cm) PWd1.20 (0.7-1.1cm)FS (%) 31 % LVDs3.61 (2.0-3.8cm)LVEF (%)58 (>50%) Mitral Valve MV E Ifadkuke50.5cm/sMV A Tbetsoix821.5cm/sE/A ratio0.9 TDI E/Lateral E'0.0E/Medial E'0.0 Tricuspid Valve TR Peak Eqtgfgaw213sw/sTR Peak Gr.30sdCaRZGN32woEm LEFT VENTRICLE There is mild concentric left ventricular hypertrophy. The left ventricular function is normal. The left ventricular ejection fraction is within the normal range. There is normal LV segmental wall motion. Transmitral Doppler flow pattern is Grade I-abnormal relaxation pattern. Normal left atrial pressure. RIGHT VENTRICLE The right ventricle is normal size. The right ventricular systolic function is normal. ATRIA The left atrium is mildly dilated. The right atrium size is normal. AORTIC VALVE The aortic valve is normal in structure. No aortic regurgitation is present. MITRAL VALVE The mitral valve is normal in structure. There is no mitral valve regurgitation noted. TRICUSPID VALVE The tricuspid valve is normal in structure. There is mild tricuspid regurgitation. PULMONIC VALVE The pulmonic valve is not well visualized. GREAT VESSELS The aortic root is normal in size. The IVC is normal in size and collapses >50% with inspiration. PERICARDIAL EFFUSION There is no pericardial effusion. Possible small left pleural effusion. <Conclusion> There is mild concentric left ventricular hypertrophy. The left ventricular function is normal. There is normal LV segmental wall motion. Transmitral Doppler flow pattern is Grade I-abnormal relaxation pattern. Normal left atrial pressure. The right ventricular systolic function is normal. There is mild tricuspid regurgitation. There is no pericardial effusion. Possible small left pleural effusion.
--- NOTE | 2017-01-23 17:18 | CP.PCM.PN ---
Subjective - Date & Time of Evaluation Date of Evaluation: 01/23/17 Time of Evaluation: 17:17 - Subjective Subjective: seen and examined during hd, uf goal is 2. 8 lit follow up consult is dictated #[id number] Objective - Vital Signs/Intake and Output Vital Signs (last 24 hours): Temp Pulse Resp BP Pulse Ox 98.2 F 88 18 166/95 H 96 01/23/17 14:20 01/23/17 14:20 01/23/17 14:20 01/23/17 16:50 01/23/17 14:20 Intake and Output: 01/23/17 01/23/17 06:59 18:59 Intake Total 420 Balance 420 - Medications Medications: Current Medications Acetaminophen (Tylenol 325mg Tab) 650 mg PO Q6 PRN PRN Reason: Fever >100.4 F Amlodipine Besylate (Norvasc) 5 mg PO DAILY [facility] Last Admin: 01/23/17 14:40 Dose: Not Given Epoetin Andrés (Procrit) 20,000 unit IV TTS [facility] Stop: 01/28/17 10:01 Last Admin: 01/23/17 15:10 Dose: 20,000 unit Famotidine (Pepcid) 20 mg PO DAILY [facility] Last Admin: 01/23/17 09:31 Dose: 20 mg Ferric Sodium Gluconate Complex (Ferrlecit) 125 mg IVPB TTS [facility] Stop: 01/28/17 10:01 Last Admin: 01/23/17 15:13 Dose: 125 mg Hydromorphone HCl (Dilaudid) 0.5 mg IVP Q6H PRN PRN Reason: Pain, severe (8-10) Stop: 01/24/17 11:33 Last Admin: 01/23/17 13:50 Dose: 0.5 mg Vancomycin HCl 1 gm/ Sodium (Chloride) 250 mls @ 166.7 mls/hr IVPB TTS@1700 [facility] Last Admin: 01/21/17 19:45 Dose: 166.7 mls/hr Tigecycline 50 mg/ Dextrose 100 mls @ 100 mls/hr IV Q12H [facility] Last Admin: 01/23/17 05:20 Dose: 100 mls/hr Insulin Aspart (Novolog) 0 unit SC ACHS IVÁN PRN Reason: Protocol Last Admin: 01/23/17 12:27 Dose: Not Given Lactic Acid (Lac-Hydrin 12% Lotion (225 G)) 0 gm EXT DAILY [facility] Last Admin: 01/23/17 09:33 Dose: 1 applic Levothyroxine Sodium (Synthroid) 75 mcg PO DAILY@0630 [facility] Last Admin: 01/23/17 06:14 Dose: 75 mcg Metoclopramide HCl (Reglan) 10 mg PO Q6H PRN PRN Reason: Nausea/Vomiting Last Admin: 01/17/17 09:42 Dose: 10 mg Morphine Sulfate (Morphine) 2 mg IVP Q8H PRN PRN Reason: Pain, severe (8-10) Stop: 01/25/17 11:34 Paricalcitol (Zemplar) 2 mcg IV TTS [facility] Stop: 01/28/17 10:01 Last Admin: 01/23/17 15:11 Dose: 2 mcg Saccharomyces Boulardii (Florastor) 250 mg PO BID [facility] Last Admin: 01/23/17 09:30 Dose: 250 mg Sucralfate (Carafate Tab) 1 gm PO Q8H [facility] Last Admin: 01/23/17 09:31 Dose: 1 gm Vitamin B Complex/Vit C/Folic Acid (Nephro-Vladislav) 1 tab PO DAILY [facility] Last Admin: 01/23/17 09:31 Dose: 1 tab - Labs Labs: 01/22/17 07:17 01/22/17 07:17 PT 14.6 SECONDS (9.7-12.2) H 01/18/17 11:27 INR 1.3 01/18/17 11:27 APTT 55 SECONDS (21-34) H 01/18/17 11:27
--- NOTE | 2017-01-23 19:56 | CP.PCM.PN ---
Subjective - Date & Time of Evaluation Date of Evaluation: 01/23/17 Time of Evaluation: 18:20 - Subjective Subjective: No complaints. Objective - Vital Signs/Intake and Output Vital Signs (last 24 hours): Temp Pulse Resp BP Pulse Ox 99.9 F H 99 H 20 150/90 97 01/23/17 18:45 01/23/17 18:45 01/23/17 18:45 01/23/17 18:45 01/23/17 18:45 - Medications Medications: Current Medications Acetaminophen (Tylenol 325mg Tab) 650 mg PO Q6 PRN PRN Reason: Fever >100.4 F Amlodipine Besylate (Norvasc) 5 mg PO DAILY [facility] Last Admin: 01/23/17 14:40 Dose: Not Given Epoetin Andrés (Procrit) 20,000 unit IV TTS [facility] Stop: 01/28/17 10:01 Last Admin: 01/23/17 15:10 Dose: 20,000 unit Famotidine (Pepcid) 20 mg PO DAILY [facility] Last Admin: 01/23/17 09:31 Dose: 20 mg Ferric Sodium Gluconate Complex (Ferrlecit) 125 mg IVPB TTS [facility] Stop: 01/28/17 10:01 Last Admin: 01/23/17 15:13 Dose: 125 mg Hydromorphone HCl (Dilaudid) 0.5 mg IVP Q6H PRN PRN Reason: Pain, severe (8-10) Stop: 01/24/17 11:33 Last Admin: 01/23/17 18:50 Dose: 0.5 mg Vancomycin HCl 1 gm/ Sodium (Chloride) 250 mls @ 166.7 mls/hr IVPB TTS@1700 [facility] Last Admin: 01/23/17 18:49 Dose: 166.7 mls/hr Tigecycline 50 mg/ Dextrose 100 mls @ 100 mls/hr IV Q12H [facility] Last Admin: 01/23/17 18:49 Dose: 100 mls/hr Insulin Aspart (Novolog) 0 unit SC ACHS [facility] PRN Reason: Protocol Last Admin: 01/23/17 17:30 Dose: Not Given Lactic Acid (Lac-Hydrin 12% Lotion (225 G)) 0 gm EXT DAILY [facility] Last Admin: 01/23/17 09:33 Dose: 1 applic Levothyroxine Sodium (Synthroid) 75 mcg PO DAILY@0630 [facility] Last Admin: 01/23/17 06:14 Dose: 75 mcg Metoclopramide HCl (Reglan) 10 mg PO Q6H PRN PRN Reason: Nausea/Vomiting Last Admin: 01/17/17 09:42 Dose: 10 mg Morphine Sulfate (Morphine) 2 mg IVP Q8H PRN PRN Reason: Pain, severe (8-10) Stop: 01/25/17 11:34 Paricalcitol (Zemplar) 2 mcg IV TTS [facility] Stop: 01/28/17 10:01 Last Admin: 01/23/17 15:11 Dose: 2 mcg Saccharomyces Boulardii (Florastor) 250 mg PO BID [facility] Last Admin: 01/23/17 18:50 Dose: 250 mg Sucralfate (Carafate Tab) 1 gm PO Q8H [facility] Last Admin: 01/23/17 18:48 Dose: 1 gm Vitamin B Complex/Vit C/Folic Acid (Nephro-Vladislav) 1 tab PO DAILY [facility] Last Admin: 01/23/17 09:31 Dose: 1 tab - Labs Labs: 01/22/17 07:17 01/22/17 07:17 PT 14.6 SECONDS (9.7-12.2) H 01/18/17 11:27 INR 1.3 01/18/17 11:27 APTT 55 SECONDS (21-34) H 01/18/17 11:27 - Head Exam Head Exam: ATRAUMATIC - Eye Exam Eye Exam: Normal appearance - ENT Exam ENT Exam: Mucous Membranes Dry - Respiratory Exam Respiratory Exam: NORMAL BREATHING PATTERN - Cardiovascular Exam Cardiovascular Exam: +S1, +S2 - GI/Abdominal Exam GI & Abdominal Exam: Normal Bowel Sounds - Extremities Exam Extremities Exam: Pedal Edema Assessment and Plan (1) Pancytopenia Assessment & Plan: s/p bone marrow biopsy Status: Acute (2) Coagulopathy Status: Acute
[2017-01-24] MEDS: HYDROmorphone 0.5 mg/0.5 ml ISec IVP PRN ×2 (00:58→07:16)
--- NOTE | 2017-01-24 02:49 | PN ---
DATE: 01/23/2017 The patient is located in room 672, bed A. REQUESTED BY: Willian Munguia MD REASON FOR RENAL CONSULTATION: End-stage renal disease for continuation of hemodialysis. HISTORY OF PRESENT ILLNESS: The patient is a 46-year-old middle-aged - [place] male with a history of longstanding hypertension, diabetes, bipolar disorder, end-stage renal disease, multidrug resistant Klebsiella pneumoniae bacteremia, endocarditis, fungemia, who was recently transferred to [facility]. The patient was admitted last week with fever and chills during dialysis and blood culture were drawn during dialysis from the femoral vein catheter site and received 1 gram of vancomycin and gentamicin 200 mg and the patient was sent to the Emergency Room for further evaluation. Now blood cultures are growing Klebsiella pneumoniae, multidrug resistant organism, sensitive to only tigecycline. The patient was initially on vancomycin and Zosyn and now antibiotic was changed to tigecycline by Dr. Crane. The patient is not in acute distress and denies any complaints. No chest pain, no palpitations, no fever and no cough. He complains of feeling cold during dialysis. The patient was seen and examined during dialysis. UF goal was 2.8 liters. PHYSICAL EXAMINATION: VITAL SIGNS: As follows, blood pressure 154/83, pulse 86, respirations 18, temperature 98.1 and saturation 95%. Height 5 feet 11 inches and weight is 234 pounds. GENERAL: The patient is a 46-year-old male, moderately built, moderately nourished, not in acute distress. HEENT: Pupils normal, reactive to light and accommodation. Conjunctivae pink. Sclerae anicteric. Tongue is moist. NECK: Trachea midline. LUNGS: Symmetric on both sides. Bilateral breath sounds present. Clear on auscultation. CARDIOVASCULAR: [place] in the fifth intercostal space midclavicular line. S1 and S2 audible. No murmur or gallop. ABDOMEN: Normal in appearance, soft and tympanic. No guarding. No hepatosplenomegaly. CENTRAL NERVOUS SYSTEM: The patient is alert, awake, oriented x 3 and nonfocal on examination. Cranial nerves II-XII grossly intact. Sensory and motor system is within normal limits. EXTREMITIES: No cyanosis, no clubbing and no edema. CURRENT MEDICATIONS: Include as follows, Carafate 1 gram p.o. q. 8 hours, Dilaudid 2 mg IV, discontinued. The patient is on Dilaudid 0.5 mg IV q. 6 hours p.r.n., ferrous gluconate 125 mg 3 times a week, Wednesday, , Wednesday, Lac-Hydrin lotion, morphine 2 mg IV q. 8 hours p.r.n., Nephro-Vladislav 1 tablet daily, insulin as per orders for sliding scale, Pepcid 20 mg p.o. daily , Epogen 20,000 units 3 times a week, Reglan 10 mg p.o. q. 6 hours, Synthroid 75 mcg p.o. daily, tigecycline 50 mg daily, Tylenol, vancomycin 1 gram 3 times a week and Zemplar 2 mcg 3 times a week. LABORATORY DATA: No new labs are available. His Accu-Cheks 112, 92 and 107. Blood cultures from the dialysis center are positive for Klebsiella pneumoniae, multidrug resistant organism as of 01/16/2017 and blood culture from [facility] as of 01/16/2017 negative day 5. SUMMARY: The patient is a 46-year-old male with history of hypertension, diabetes, end-stage renal disease, bipolar disorder, Klebsiella pneumoniae sepsis with multidrug resistant organism on tigecycline complaining of feeling cold during dialysis. 1. End-stage renal disease. Continue hemodialysis 3 times a week, Wednesday, , Wednesday. 2. Klebsiella pneumoniae sepsis, multidrug resistant organism. Continue tigecycline and repeat cultures with a temperature more than 100. 3. Anemia and thrombocytopenia and pancytopenia, most likely secondary to sepsis, rule out drug induced. Continue his current antibiotics and continue with Norvasc and titrate as needed to keep blood pressure below 130/70. Continue Epogen and IV ferrelecit, Will follow with you. Thank you for allowing me to participate in your patient's care. Lakhwinder Alcazar MD cc: [id number] TT: 01/24/2017 00:05:08 Confirmation # [id number] Dictation # [id number] 01/24/2017 01:48:07 ZACH
[2017-01-24] MEDS: Tigecycline 50 MG in Dextrose 5% In Water 100 ML IV SCH ×2 (04:55→17:03)
[2017-01-24] MEDS: Levothyroxine 75 MCG TAB PO SCH (06:04)
[2017-01-24] MEDS: (Novolog) Insulin Aspart, Recombinant 100 u/ml 10 ml vial SC SCH ×4 (07:42→21:43)
[2017-01-24] MEDS: Multivitamin Vitamin B Complex (Nephro-Vite) Tab PO SCH (10:21)
[2017-01-24] MEDS: Saccharomyces Boulardi 250 mg Cap PO SCH ×2 (10:21→18:01)
[2017-01-24] MEDS: Ammonium Lactate 12% Lotion (225 g) EXT SCH (10:25)
--- NOTE | 2017-01-24 11:38 | CP.PCM.PN ---
Subjective - Date & Time of Evaluation Date of Evaluation: 01/24/17 Time of Evaluation: 12:00 - Subjective Subjective: pt. is afebrile Objective - Vital Signs/Intake and Output Vital Signs (last 24 hours): Temp Pulse Resp BP Pulse Ox 98.4 F 90 18 152/94 H 97 01/24/17 08:15 01/24/17 10:20 01/24/17 08:15 01/24/17 10:20 01/24/17 08:15 Intake and Output: 01/24/17 01/24/17 06:59 18:59 Intake Total 460 Balance 460 - Medications Medications: Current Medications Acetaminophen (Tylenol 325mg Tab) 650 mg PO Q6 PRN PRN Reason: Fever >100.4 F Amlodipine Besylate (Norvasc) 5 mg PO DAILY [facility] Last Admin: 01/24/17 10:21 Dose: 5 mg Epoetin Andrés (Procrit) 20,000 unit IV TTS [facility] Stop: 01/28/17 10:01 Last Admin: 01/23/17 15:10 Dose: 20,000 unit Famotidine (Pepcid) 20 mg PO DAILY [facility] Last Admin: 01/24/17 10:21 Dose: 20 mg Ferric Sodium Gluconate Complex (Ferrlecit) 125 mg IVPB TTS [facility] Stop: 01/28/17 10:01 Last Admin: 01/23/17 15:13 Dose: 125 mg Vancomycin HCl 1 gm/ Sodium (Chloride) 250 mls @ 166.7 mls/hr IVPB TTS@1700 [facility] Last Admin: 01/23/17 18:49 Dose: 166.7 mls/hr Tigecycline 50 mg/ Dextrose 100 mls @ 100 mls/hr IV Q12H [facility] Last Admin: 01/24/17 04:55 Dose: 100 mls/hr Insulin Aspart (Novolog) 0 unit SC ACHS IVÁN PRN Reason: Protocol Last Admin: 01/24/17 07:42 Dose: Not Given Lactic Acid (Lac-Hydrin 12% Lotion (225 G)) 0 gm EXT DAILY [facility] Last Admin: 01/24/17 10:25 Dose: 1 applic Levothyroxine Sodium (Synthroid) 75 mcg PO DAILY@0630 [facility] Last Admin: 01/24/17 06:04 Dose: 75 mcg Metoclopramide HCl (Reglan) 10 mg PO Q6H PRN PRN Reason: Nausea/Vomiting Last Admin: 01/17/17 09:42 Dose: 10 mg Morphine Sulfate (Morphine) 2 mg IVP Q8H PRN PRN Reason: Pain, severe (8-10) Stop: 01/25/17 11:34 Paricalcitol (Zemplar) 2 mcg IV TTS [facility] Stop: 01/28/17 10:01 Last Admin: 01/23/17 15:11 Dose: 2 mcg Saccharomyces Boulardii (Florastor) 250 mg PO BID [facility] Last Admin: 01/24/17 10:21 Dose: 250 mg Sucralfate (Carafate Tab) 1 gm PO Q8H [facility] Last Admin: 01/24/17 10:21 Dose: 1 gm Vitamin B Complex/Vit C/Folic Acid (Nephro-Vladislav) 1 tab PO DAILY [facility] Last Admin: 01/24/17 10:21 Dose: 1 tab - Labs Labs: 01/22/17 07:17 01/22/17 07:17 PT 14.6 SECONDS (9.7-12.2) H 01/18/17 11:27 INR 1.3 01/18/17 11:27 APTT 55 SECONDS (21-34) H 01/18/17 11:27 - Constitutional Appears: Well - Head Exam Head Exam: ATRAUMATIC, NORMAL INSPECTION, NORMOCEPHALIC - Eye Exam Eye Exam: EOMI, Normal appearance, PERRL Pupil Exam: NORMAL ACCOMODATION, PERRL - ENT Exam ENT Exam: Mucous Membranes Moist, Normal Exam - Neck Exam Neck Exam: Full ROM, Normal Inspection. absent: Lymphadenopathy - Respiratory Exam Respiratory Exam: Decreased Breath Sounds - Cardiovascular Exam Cardiovascular Exam: REGULAR RHYTHM, +S1, +S2 - GI/Abdominal Exam GI & Abdominal Exam: Soft, Diminished Bowel Sounds - Rectal Exam Rectal Exam: Deferred Assessment and Plan - Assessment and Plan (Free Text) Plan: DR. Rodrigue Crane continue Mx as ordered F/u labs
--- NOTE | 2017-01-24 12:18 | PN ---
DATE: 01/24/2017 ROOM: 672 This is a 46-year-old male with recent bacteremia and febrile episodes on the background of diabetic nephropathy with end-stage renal disease and is now also being followed closely for metabolic managem ent of both type 2 diabetes and hypothyroidism as noted thereof. His latest glucose values have ranged from 90-98 and 120 mg/dL. The latest chemistry showed a BUN of 16, sodium 130, potassium 3.6, chloride 94, CO2 29, glucose 100 and creatinine 4.9. His last thyroi d studies showed a free T4 of 2.18 with a total T4 of 5.28 mcg/dL. His TSH was 6.13, indicative of t he so-called subclinical hypothyroidism as noted thereof. So for now, we will increase the levothyroxine dose regimen to optimize metabolic control and we will continue the levothyroxine given as 75 mcg once daily as ordered. We will also continue the low-dos e correction scale using NovoLog insulin as given. We will titrate incrementally as indicated to opt imize metabolic control. We will follow. Nataly Aragon MD cc: [id number] TT: 01/24/2017 12:18:09 Confirmation # [id number] Dictation # [id number]
--- NOTE | 2017-01-24 14:06 | CP.PCM.PN ---
Subjective - Date & Time of Evaluation Date of Evaluation: 01/24/17 Time of Evaluation: 14:05 - Subjective Subjective: pt seen and examined, follow up consult is dictated #[id number] Objective - Vital Signs/Intake and Output Vital Signs (last 24 hours): Temp Pulse Resp BP Pulse Ox 98.4 F 90 18 152/94 H 97 01/24/17 08:15 01/24/17 10:20 01/24/17 08:15 01/24/17 10:20 01/24/17 08:15 Intake and Output: 01/24/17 01/24/17 06:59 18:59 Intake Total 460 Balance 460 - Medications Medications: Current Medications Acetaminophen (Tylenol 325mg Tab) 650 mg PO Q6 PRN PRN Reason: Fever >100.4 F Amlodipine Besylate (Norvasc) 5 mg PO DAILY [facility] Last Admin: 01/24/17 10:21 Dose: 5 mg Epoetin Andrés (Procrit) 20,000 unit IV TTS [facility] Stop: 01/28/17 10:01 Last Admin: 01/23/17 15:10 Dose: 20,000 unit Famotidine (Pepcid) 20 mg PO DAILY [facility] Last Admin: 01/24/17 10:21 Dose: 20 mg Ferric Sodium Gluconate Complex (Ferrlecit) 125 mg IVPB TTS [facility] Stop: 01/28/17 10:01 Last Admin: 01/23/17 15:13 Dose: 125 mg Vancomycin HCl 1 gm/ Sodium (Chloride) 250 mls @ 166.7 mls/hr IVPB TTS@1700 [facility] Last Admin: 01/23/17 18:49 Dose: 166.7 mls/hr Tigecycline 50 mg/ Dextrose 100 mls @ 100 mls/hr IV Q12H [facility] Last Admin: 01/24/17 04:55 Dose: 100 mls/hr Insulin Aspart (Novolog) 0 unit SC ACHS IV[facility] PRN Reason: Protocol Last Admin: 01/24/17 11:40 Dose: Not Given Lactic Acid (Lac-Hydrin 12% Lotion (225 G)) 0 gm EXT DAILY [facility] Last Admin: 01/24/17 10:25 Dose: 1 applic Levothyroxine Sodium (Synthroid) 75 mcg PO DAILY@0630 [facility] Last Admin: 01/24/17 06:04 Dose: 75 mcg Metoclopramide HCl (Reglan) 10 mg PO Q6H PRN PRN Reason: Nausea/Vomiting Last Admin: 01/17/17 09:42 Dose: 10 mg Morphine Sulfate (Morphine) 2 mg IVP Q8H PRN PRN Reason: Pain, severe (8-10) Stop: 01/25/17 11:34 Paricalcitol (Zemplar) 2 mcg IV TTS [facility] Stop: 01/28/17 10:01 Last Admin: 01/23/17 15:11 Dose: 2 mcg Saccharomyces Boulardii (Florastor) 250 mg PO BID [facility] Last Admin: 01/24/17 10:21 Dose: 250 mg Sucralfate (Carafate Tab) 1 gm PO Q8H [facility] Last Admin: 01/24/17 10:21 Dose: 1 gm Vitamin B Complex/Vit C/Folic Acid (Nephro-Vladislav) 1 tab PO DAILY [facility] Last Admin: 01/24/17 10:21 Dose: 1 tab - Labs Labs: 01/22/17 07:17 01/22/17 07:17 PT 14.6 SECONDS (9.7-12.2) H 01/18/17 11:27 INR 1.3 01/18/17 11:27 APTT 55 SECONDS (21-34) H 01/18/17 11:27
--- NOTE | 2017-01-24 15:33 | CP.PCM.PN ---
Subjective - Date & Time of Evaluation Date of Evaluation: 01/24/17 Time of Evaluation: 10:00 - Subjective Subjective: afeb on tygacil for suspected mdro await results of ciultures Objective - Vital Signs/Intake and Output Vital Signs (last 24 hours): Temp Pulse Resp BP Pulse Ox 98.4 F 89 18 146/86 98 01/24/17 14:30 01/24/17 14:30 01/24/17 14:30 01/24/17 14:30 01/24/17 14:30 Intake and Output: 01/24/17 01/24/17 06:59 18:59 Intake Total 460 Balance 460 - Medications Medications: Current Medications Acetaminophen (Tylenol 325mg Tab) 650 mg PO Q6 PRN PRN Reason: Fever >100.4 F Amlodipine Besylate (Norvasc) 5 mg PO DAILY [facility] Last Admin: 01/24/17 10:21 Dose: 5 mg Epoetin Andrés (Procrit) 20,000 unit IV TTS [facility] Stop: 01/28/17 10:01 Last Admin: 01/23/17 15:10 Dose: 20,000 unit Famotidine (Pepcid) 20 mg PO DAILY [facility] Last Admin: 01/24/17 10:21 Dose: 20 mg Ferric Sodium Gluconate Complex (Ferrlecit) 125 mg IVPB TTS [facility] Stop: 01/28/17 10:01 Last Admin: 01/23/17 15:13 Dose: 125 mg Vancomycin HCl 1 gm/ Sodium (Chloride) 250 mls @ 166.7 mls/hr IVPB TTS@1700 [facility] Last Admin: 01/23/17 18:49 Dose: 166.7 mls/hr Tigecycline 50 mg/ Dextrose 100 mls @ 100 mls/hr IV Q12H [facility] Last Admin: 01/24/17 04:55 Dose: 100 mls/hr Insulin Aspart (Novolog) 0 unit SC ACHS [facility] PRN Reason: Protocol Last Admin: 01/24/17 11:40 Dose: Not Given Lactic Acid (Lac-Hydrin 12% Lotion (225 G)) 0 gm EXT DAILY [facility] Last Admin: 01/24/17 10:25 Dose: 1 applic Levothyroxine Sodium (Synthroid) 75 mcg PO DAILY@0630 [facility] Last Admin: 01/24/17 06:04 Dose: 75 mcg Metoclopramide HCl (Reglan) 10 mg PO Q6H PRN PRN Reason: Nausea/Vomiting Last Admin: 01/17/17 09:42 Dose: 10 mg Morphine Sulfate (Morphine) 2 mg IVP Q8H PRN PRN Reason: Pain, severe (8-10) Stop: 01/25/17 11:34 Last Admin: 01/24/17 14:08 Dose: 2 mg Paricalcitol (Zemplar) 2 mcg IV TTS [facility] Stop: 01/28/17 10:01 Last Admin: 01/23/17 15:11 Dose: 2 mcg Saccharomyces Boulardii (Florastor) 250 mg PO BID [facility] Last Admin: 01/24/17 10:21 Dose: 250 mg Sucralfate (Carafate Tab) 1 gm PO Q8H [facility] Last Admin: 01/24/17 10:21 Dose: 1 gm Vitamin B Complex/Vit C/Folic Acid (Nephro-Vladislav) 1 tab PO DAILY [facility] Last Admin: 01/24/17 10:21 Dose: 1 tab - Labs Labs: 01/22/17 07:17 01/22/17 07:17 PT 14.6 SECONDS (9.7-12.2) H 01/18/17 11:27 INR 1.3 01/18/17 11:27 APTT 55 SECONDS (21-34) H 01/18/17 11:27 - Constitutional Appears: Non-toxic, Cachectic, Chronically Ill - Head Exam Head Exam: NORMOCEPHALIC - Eye Exam Eye Exam: PERRL. absent: Scleral icterus - ENT Exam ENT Exam: Mucous Membranes Dry - Neck Exam Neck Exam: absent: Lymphadenopathy - Respiratory Exam Respiratory Exam: Decreased Breath Sounds, Rhonchi - Cardiovascular Exam Cardiovascular Exam: REGULAR RHYTHM, +S1, +S2 - GI/Abdominal Exam GI & Abdominal Exam: Distended, Soft. absent: Tenderness - Rectal Exam Rectal Exam: Deferred - Exam Exam: NORMAL INSPECTION - Extremities Exam Extremities Exam: absent: Calf Tenderness, Pedal Edema - Back Exam Back Exam: absent: CVA tenderness (L), CVA tenderness (R) - Neurological Exam Neurological Exam: Alert, Awake, Oriented x3 - Psychiatric Exam Psychiatric exam: Normal Mood Assessment and Plan (1) Diabetes Status: Acute (2) Fever Status: Acute (3) HIV antibody positive Status: Acute (4) HTN (hypertension) Status: Acute (5) Hypothyroidism Status: Acute (6) Pancytopenia Status: Acute
--- NOTE | 2017-01-24 21:13 | PN ---
DATE: 01/24/2017 The patient is located in room 672, bed B. REQUESTED BY: Dr. Willian Munguia REASON FOR FOLLOWUP: End-stage renal disease, continuation of hemodialysis. HISTORY OF PRESENT ILLNESS: The patient is a 46-year-old middle-aged male with a past medical history significant for long-standing hypertension, diabetes, bipolar disorder, end-stage renal disease, pancytopenia and Klebsiella pneumoniae, endocarditis, multidrug resistant organism and fungemia, who was recently transferred to [facility] rehab from LTAC close to the patient's family in [place]. From there, patient was admitted through the Emergency Room from the dialysis unit after having fever, chills, and altered mental status. Found to have a gram-negative sepsis and later on identified as Klebsiella pneumoniae multitude drug resistant organism and sensitive to tigecycline only. The patient is on tigecycline now. The patient is feeling better, not in acute distress. T-max 99.9 post-dialysis yesterday. The patient denies any complaints now. No chest pain, no palpitation, no fever, no cough. Status post bone marrow biopsy on Wednesday. PHYSICAL EXAMINATION: As follows: VITAL SIGNS: Blood pressure 158/84, pulse 91, respirations 20, temperature 98.3 , saturation 97%. Blood pressure this afternoon 146/86, pulse 89, respiration 18, temperature 98.4, saturation 98%. Height 5 feet 11 inches and weight is 234 pounds. GENERAL: The patient is a 46-year-old male, moderately built, moderately nourished, not in distress. HEENT: Pupils normal, reactive to light and accommodation. Conjunctivae pink. Sclerae anicteric. Tongue is moist. NECK: Trachea is midline. LUNGS: Symmetric on both sides. Bilateral breath sounds present. Clear on auscultation. CARDIOVASCULAR: [place] at the fifth intercostal space, midclavicular line. S1 and S2 audible. No murmur or gallop. ABDOMEN: Normal in appearance, soft, tympanic. No guarding, no rigidity. No hepatosplenomegaly. CENTRAL NERVOUS SYSTEM: The patient is alert, awake, oriented x 3, nonfocal on examination. Cranial nerves II-XII grossly intact. Sensory and motor system is within normal limits. EXTREMITIES: No cyanosis, no clubbing, no edema. CURRENT MEDICATIONS: Include, as follows: Carafate 1 gram p.o. q.8 hours and ferric gluconate 125 mg 3 times a week and Florastor 250 mg p.o. b.i.d. and Lac- Hydrin lotion and lidocaine for the AV fistula cannulation and morphine 2 mg IV q.8 hours p.r.n. and Nephro-Vladislav 1 tablet p.o. daily and amlodipine 5 mg daily, famotidine 20 mg p.o. daily and Epogen 20,000 units 3 times a week and Reglan 10 mg p.o. q.6 hours p.r.n., levothyroxine 75 mcg p.o. daily and tigecycline 50 mg q.12 hours and Tylenol and vancomycin 1 gram 3 times a week, Zemplar 2 mcg 3 times a week. LABORATORY DATA: No new labs are available. His Accu-Cheks are 98 and 90 and 126. SUMMARY: The patient is a 46-year-old middle-aged male with hypertension, diabetes, bipolar disorder, end-stage renal disease, on hemodialysis 3 times a week, Wednesday, , Wednesday. Was admitted with fever, chills and found to have Klebsiella pneumoniae resistant to multidrug, sensitivity to only tigecycline. Status post removal of right femoral vein PermCath. Still, patient has a PICC line. 1. End-stage renal disease. Continue hemodialysis 3 times a week -- Wednesday, , Wednesday. 2. Gram-negative sepsis. Continue tigecycline 50 mg q.12 hours and follow with ID and also consider to remove the PICC line, to change the PICC line at least if possible. 3. Pancytopenia. Rule out immunocompromised condition. Rule out bone marrow suppression. 4. Hypertension. Blood pressure stable. Continue amlodipine and titrate as needed and low sodium diet. We will follow with you. Thank you for allowing me to participate in your patient's care. Consider physical therapy evaluation. Lakhwinder Alcazar MD cc: [id number] TT: 01/24/2017 21:12:50 Confirmation # [id number] Dictation # [id number] MTDD
[2017-01-25] MEDS: Tigecycline 50 MG in Dextrose 5% In Water 100 ML IV SCH ×2 (06:00→18:08)
[2017-01-25] MEDS: Levothyroxine 75 MCG TAB PO SCH (06:32)
[2017-01-25 07:41] LABS: POTASSIUM 3.7 mmol/L (3.6-5.2)
[2017-01-25 07:44] LABS: ALB/GLOB RATIO 0.5 (1.0-2.1); PHOSPHOROUS 3.5 mg/dL (2.5-4.5); TOTAL PROTEIN 6.4 g/dL (6.3-8.3)
[2017-01-25 07:45] LABS: CALCIUM 8.4 mg/dl (8.6-10.4)
[2017-01-25] MEDS: (Novolog) Insulin Aspart, Recombinant 100 u/ml 10 ml vial SC SCH ×4 (08:09→22:00)
[2017-01-25] MEDS: Saccharomyces Boulardi 250 mg Cap PO SCH ×3 (10:25→18:06)
[2017-01-25] MEDS: Multivitamin Vitamin B Complex (Nephro-Vite) Tab PO SCH (10:26)
[2017-01-25] MEDS: Ammonium Lactate 12% Lotion (225 g) EXT SCH ×2 (10:28→12:39)
--- NOTE | 2017-01-25 11:55 | CP.PCM.PN ---
Subjective - Date & Time of Evaluation Date of Evaluation: 01/25/17 Time of Evaluation: 10:00 - Subjective Subjective: rx gram neg sepsis in progress Objective - Vital Signs/Intake and Output Vital Signs (last 24 hours): Temp Pulse Resp BP Pulse Ox 98.3 F 90 20 153/90 H 97 01/25/17 08:09 01/25/17 08:09 01/25/17 08:09 01/25/17 08:09 01/25/17 08:09 Intake and Output: 01/25/17 01/25/17 06:59 18:59 Intake Total 500 Balance 500 - Medications Medications: Current Medications Acetaminophen (Tylenol 325mg Tab) 650 mg PO Q6 PRN PRN Reason: Fever >100.4 F Amlodipine Besylate (Norvasc) 5 mg PO DAILY [facility] Last Admin: 01/25/17 10:25 Dose: 5 mg Epoetin Andrés (Procrit) 20,000 unit IV TTS [facility] Stop: 01/28/17 10:01 Last Admin: 01/23/17 15:10 Dose: 20,000 unit Famotidine (Pepcid) 20 mg PO DAILY [facility] Last Admin: 01/25/17 10:25 Dose: 20 mg Ferric Sodium Gluconate Complex (Ferrlecit) 125 mg IVPB TTS [facility] Stop: 01/28/17 10:01 Last Admin: 01/23/17 15:13 Dose: 125 mg Vancomycin HCl 1 gm/ Sodium (Chloride) 250 mls @ 166.7 mls/hr IVPB TTS@1700 [facility] Last Admin: 01/23/17 18:49 Dose: 166.7 mls/hr Tigecycline 50 mg/ Dextrose 100 mls @ 100 mls/hr IV Q12H [facility] Insulin Aspart (Novolog) 0 unit SC ACHS [facility] PRN Reason: Protocol Last Admin: 01/25/17 08:09 Dose: Not Given Lactic Acid (Lac-Hydrin 12% Lotion (225 G)) 0 gm EXT DAILY [facility] Last Admin: 01/25/17 10:28 Dose: 1 applic Levothyroxine Sodium (Synthroid) 75 mcg PO DAILY@0630 [facility] Last Admin: 01/25/17 06:32 Dose: 75 mcg Metoclopramide HCl (Reglan) 10 mg PO Q6H PRN PRN Reason: Nausea/Vomiting Last Admin: 01/17/17 09:42 Dose: 10 mg Paricalcitol (Zemplar) 2 mcg IV TTS [facility] Stop: 01/28/17 10:01 Last Admin: 01/23/17 15:11 Dose: 2 mcg Saccharomyces Boulardii (Florastor) 250 mg PO BID [facility] Last Admin: 01/25/17 10:25 Dose: 250 mg Sucralfate (Carafate Tab) 1 gm PO Q8H [facility] Last Admin: 01/25/17 10:25 Dose: 1 gm Vitamin B Complex/Vit C/Folic Acid (Nephro-Vladislav) 1 tab PO DAILY [facility] Last Admin: 01/25/17 10:26 Dose: 1 tab - Labs Labs: 01/22/17 07:17 01/25/17 07:10 PT 14.6 SECONDS (9.7-12.2) H 01/18/17 11:27 INR 1.3 01/18/17 11:27 APTT 55 SECONDS (21-34) H 01/18/17 11:27 - Constitutional Appears: Non-toxic, Chronically Ill - Head Exam Head Exam: NORMOCEPHALIC - Eye Exam Eye Exam: PERRL. absent: Scleral icterus - ENT Exam ENT Exam: Mucous Membranes Dry - Neck Exam Neck Exam: absent: Lymphadenopathy - Respiratory Exam Respiratory Exam: Decreased Breath Sounds, Rhonchi - Cardiovascular Exam Cardiovascular Exam: REGULAR RHYTHM, +S1, +S2 - GI/Abdominal Exam GI & Abdominal Exam: Distended, Soft - Rectal Exam Rectal Exam: Deferred - Exam Exam: NORMAL INSPECTION - Extremities Exam Extremities Exam: absent: Pedal Edema - Back Exam Back Exam: absent: CVA tenderness (L), CVA tenderness (R) Assessment and Plan (1) Diabetes Status: Acute (2) Fever Status: Acute (3) HIV antibody positive Status: Acute (4) HTN (hypertension) Status: Acute (5) Hypothyroidism Status: Acute (6) Pancytopenia Status: Acute
--- NOTE | 2017-01-25 12:30 | CP.PCM.PN ---
Subjective - Date & Time of Evaluation Date of Evaluation: 01/25/17 Time of Evaluation: 10:10 - Subjective Subjective: PGY2 Medicine Note - Dr. Rosmery Munguia's service: Patient seen and examined at bedside this AM. Patient reports burning epigastric pain and vomiting once after I touched his abdomen. Patient denies fever, chills, chest pain, SOB. Patient reports straining to have a bowel movement Objective - Vital Signs/Intake and Output Vital Signs (last 24 hours): Temp Pulse Resp BP Pulse Ox 98.3 F 90 20 153/90 H 97 01/25/17 08:09 01/25/17 08:09 01/25/17 08:09 01/25/17 08:09 01/25/17 08:09 Intake and Output: 01/25/17 01/25/17 06:59 18:59 Intake Total 500 Balance 500 - Medications Medications: Current Medications Acetaminophen (Tylenol 325mg Tab) 650 mg PO Q6 PRN PRN Reason: Fever >100.4 F Amlodipine Besylate (Norvasc) 5 mg PO DAILY [facility] Last Admin: 01/25/17 10:25 Dose: 5 mg Docusate Sodium (Colace) 100 mg PO BID [facility] Epoetin Andrés (Procrit) 20,000 unit IV TTS [facility] Stop: 01/28/17 10:01 Last Admin: 01/23/17 15:10 Dose: 20,000 unit Famotidine (Pepcid) 20 mg PO DAILY [facility] Last Admin: 01/25/17 10:25 Dose: 20 mg Ferric Sodium Gluconate Complex (Ferrlecit) 125 mg IVPB TTS [facility] Stop: 01/28/17 10:01 Last Admin: 01/23/17 15:13 Dose: 125 mg Vancomycin HCl 1 gm/ Sodium (Chloride) 250 mls @ 166.7 mls/hr IVPB TTS@1700 [facility] Last Admin: 01/23/17 18:49 Dose: 166.7 mls/hr Tigecycline 50 mg/ Dextrose 100 mls @ 100 mls/hr IV Q12H [facility] Insulin Aspart (Novolog) 0 unit SC ACHS [facility] PRN Reason: Protocol Last Admin: 01/25/17 12:21 Dose: Not Given Lactic Acid (Lac-Hydrin 12% Lotion (225 G)) 0 gm EXT DAILY [facility] Last Admin: 01/25/17 10:28 Dose: 1 applic Levothyroxine Sodium (Synthroid) 75 mcg PO DAILY@0630 [facility] Last Admin: 01/25/17 06:32 Dose: 75 mcg Metoclopramide HCl (Reglan) 10 mg PO Q6H PRN PRN Reason: Nausea/Vomiting Last Admin: 01/17/17 09:42 Dose: 10 mg Paricalcitol (Zemplar) 2 mcg IV TTS [facility] Stop: 01/28/17 10:01 Last Admin: 01/23/17 15:11 Dose: 2 mcg Saccharomyces Boulardii (Florastor) 250 mg PO BID [facility] Last Admin: 01/25/17 10:25 Dose: 250 mg Sucralfate (Carafate Tab) 1 gm PO Q8H [facility] Last Admin: 01/25/17 10:25 Dose: 1 gm Vitamin B Complex/Vit C/Folic Acid (Nephro-Vladislav) 1 tab PO DAILY [facility] Last Admin: 01/25/17 10:26 Dose: 1 tab - Labs Labs: 01/22/17 07:17 01/25/17 07:10 PT 14.6 SECONDS (9.7-12.2) H 01/18/17 11:27 INR 1.3 01/18/17 11:27 APTT 55 SECONDS (21-34) H 01/18/17 11:27 - Constitutional Appears: Non-toxic, No Acute Distress - Head Exam Head Exam: NORMAL INSPECTION - Eye Exam Eye Exam: EOMI - ENT Exam ENT Exam: Mucous Membranes Moist - Respiratory Exam Respiratory Exam: Clear to Ausculation Bilateral, NORMAL BREATHING PATTERN. absent: Rales, Rhonchi, Wheezes - Cardiovascular Exam Cardiovascular Exam: REGULAR RHYTHM, +S1, +S2. absent: Gallop, Rubs, Murmur - GI/Abdominal Exam GI & Abdominal Exam: Soft, Tenderness, Normal Bowel Sounds - Extremities Exam Extremities Exam: Pedal Edema (1+ pitting) - Neurological Exam Neurological Exam: Alert, Oriented x3 - Psychiatric Exam Psychiatric exam: Normal Affect, Normal Mood - Skin Skin Exam: Normal Color, Warm Assessment and Plan - Assessment and Plan (Free Text) Assessment: Heptatitis: 01/25:GI consult - Dr. Hutchins - f/u recommendations 01/21: repeat panel is shows hep A positive but Hep B is negative 01/19, hep panel shows Hep A postive, infection control nurse called and say patient was reported as chronic Hep B. Will repeat panel. Follow up results. Fever: 01/25: Patient has been afebrile since admission... ECHO - no mention of vegetation Day 6 of Tigecycline blood culture negative x 5 days urine culture - multiple species 01/22: Patient bandemia but no fever, day 3 of Tigicyline, ID consult Dr. Crane 01/20: Patient started on Tigacyle today per Dr. Crane 01/19: Per Nephrology consult, patient has positive blood cultures from the outpatient dialysis center, will continue IV Zosyn. Patient is on Zyson and Vac IV. Follow up blood cultures, as well as urine (patient still makes urine). HIV 01/25: CD4 count in 300s Toxoplasmosis positive ID consult - Dr. Crane - f/u recommendations 01/21: RPR and Cyrtococcal is negative, Toxoplasmosis is still pending. 01/19: Also follow up RPR, cryptocccal, RPR and toxo work up as well. CD4 count is 334, Viral load is below detectable levels. HIV screen is positive, follow up viral load and cell count. Pancytopenia 01/25: s/p bone marrow biopsy F/U Dr. Husain recommendations 01/22: Bone marrow biopsy today performed by Dr. Husain. 01/21: Could be related to nutrition per Dr. Huasin, continue to monitor cbc Dr. Husain consulted, help appreciated Hyponatremia Na 129, follow up am cmp HTN Norvasc 5mg Hypothryoidism 01/25: Thyroid US negative for nodules 01/22: 75mcg of Synthroid 01/21: Consulted Dr. Nataly Aragon have also ordered total T3 which was low this morning, patient on 75mcg of synthroid. 01/19: His TSH is high and so is his free T4, will need to call his pharmacy to find out what dosage of synthroid he is taking. Continue home synthroid DM accu checks sliding scale Prophylatic measure Carafate 1gm q8h pepcid 20mg hold VTE due to thrombocytpenia.
[2017-01-25 14:10] LABS: POTASSIUM 3.7 mmol/L (3.6-5.2)
[2017-01-25 14:12] LABS: ALB/GLOB RATIO 0.5 (1.0-2.1); BILIRUBIN,TOTAL 0.9 mg/dL (0.2-1.3); CALCIUM 8.4 mg/dl (8.6-10.4); TOTAL PROTEIN 6.6 g/dL (6.3-8.3)
[2017-01-25 14:15] LABS: EOS # 0.1 K/uL (0.0-0.7); EOS % 2.7 % (0.0-4.0); HEMATOCRIT 28.4 % (35.0-51.0); LYMPH % 27.2 % (20.0-40.0); MEAN CORPUSCULAR HGB CONC 32.8 g/dL (33.0-37.0); MEAN PLATELET VOLUME 8.8 fL (7.2-11.7); MONO # 0.7 K/uL (0.0-0.8); MONO % 19.3 % (0.0-10.0); NRBC % 0.2 % (0.0-2.0); RED CELL DISTRIBUTION WIDTH 18.2 % (11.5-14.5); WHITE BLOOD COUNT 3.8 K/uL (4.8-10.8)
[2017-01-25 14:16] LABS: MEAN CELL VOLUME 88.3 fL (80.0-94.0)
--- NOTE | 2017-01-25 16:20 | PN ---
DATE: 01/25/2017 ROOM: 361 This is a 46-year-old male with known history of type 2 diabetes, hypertension, now being followed cl osely for metabolic management of recent hypothyroidism and is currently tolerating the levothyroxine replacement therapy as given. His latest chemistries showed a BUN of 24, sodium 129, potassium 3.7, chloride 94, CO2 26, glucose 82 and creatinine 5.7. His latest thyroid study showed a T4 of 5.28 wi th a TSH of 6.13 and a free T4 of 2.18. So at this time, we will continue the levothyroxine given as 75 mcg once daily as ordered and will obtain serial chemistries and supplement accordingly as needed . We will also obtain serial thyroid studies and titrate his dose regimen to optimize metabolic cont rol. We will follow. Nataly Aragon MD cc: [id number] TT: 01/25/2017 16:19:43 Confirmation # [id number] Dictation # [id number]
--- NOTE | 2017-01-25 16:59 | CP.PCM.PN ---
Subjective - Date & Time of Evaluation Date of Evaluation: 01/25/17 Time of Evaluation: 09:00 - Subjective Subjective: epigastric pain and nausea afebrile Objective - Vital Signs/Intake and Output Vital Signs (last 24 hours): Temp Pulse Resp BP Pulse Ox 98.3 F 90 20 153/90 H 97 01/25/17 08:09 01/25/17 08:09 01/25/17 08:09 01/25/17 08:09 01/25/17 08:09 Intake and Output: 01/25/17 01/25/17 06:59 18:59 Intake Total 500 300 Balance 500 300 - Medications Medications: Current Medications Acetaminophen (Tylenol 325mg Tab) 650 mg PO Q6 PRN PRN Reason: Fever >100.4 F Amlodipine Besylate (Norvasc) 5 mg PO DAILY [facility] Last Admin: 01/25/17 12:38 Dose: Not Given Docusate Sodium (Colace) 100 mg PO BID [facility] Epoetin Andrés (Procrit) 20,000 unit IV TTS [facility] Stop: 01/28/17 10:01 Last Admin: 01/23/17 15:10 Dose: 20,000 unit Famotidine (Pepcid) 20 mg PO DAILY [facility] Last Admin: 01/25/17 12:38 Dose: Not Given Ferric Sodium Gluconate Complex (Ferrlecit) 125 mg IVPB TTS [facility] Stop: 01/28/17 10:01 Last Admin: 01/23/17 15:13 Dose: 125 mg Vancomycin HCl 1 gm/ Sodium (Chloride) 250 mls @ 166.7 mls/hr IVPB TTS@1700 [facility] Last Admin: 01/23/17 18:49 Dose: 166.7 mls/hr Tigecycline 50 mg/ Dextrose 100 mls @ 100 mls/hr IV Q12H [facility] Insulin Aspart (Novolog) 0 unit SC ACHS [facility] PRN Reason: Protocol Last Admin: 01/25/17 12:21 Dose: Not Given Lactic Acid (Lac-Hydrin 12% Lotion (225 G)) 0 gm EXT DAILY [facility] Last Admin: 01/25/17 12:39 Dose: Not Given Levothyroxine Sodium (Synthroid) 75 mcg PO DAILY@0630 [facility] Last Admin: 01/25/17 06:32 Dose: 75 mcg Metoclopramide HCl (Reglan) 10 mg PO Q6H PRN PRN Reason: Nausea/Vomiting Last Admin: 01/17/17 09:42 Dose: 10 mg Morphine Sulfate (Morphine) 2 mg IVP Q4 PRN PRN Reason: Pain, moderate (4-7) Last Admin: 01/25/17 15:56 Dose: 2 mg Ondansetron HCl (Zofran Inj) 4 mg IVP Q6H PRN PRN Reason: Nausea/Vomiting Paricalcitol (Zemplar) 2 mcg IV TTS [facility] Stop: 01/28/17 10:01 Last Admin: 01/23/17 15:11 Dose: 2 mcg Saccharomyces Boulardii (Florastor) 250 mg PO BID [facility] Last Admin: 01/25/17 12:38 Dose: Not Given Sucralfate (Carafate Tab) 1 gm PO Q8H [facility] Last Admin: 01/25/17 12:37 Dose: Not Given Vitamin B Complex/Vit C/Folic Acid (Nephro-Vladislav) 1 tab PO DAILY [facility] Last Admin: 01/25/17 10:26 Dose: 1 tab - Labs Labs: 01/25/17 13:55 01/25/17 13:55 PT 14.6 SECONDS (9.7-12.2) H 01/18/17 11:27 INR 1.3 01/18/17 11:27 APTT 55 SECONDS (21-34) H 01/18/17 11:27 - Constitutional Appears: Well - Head Exam Head Exam: ATRAUMATIC, NORMAL INSPECTION, NORMOCEPHALIC - Eye Exam Eye Exam: EOMI, Normal appearance, PERRL Pupil Exam: NORMAL ACCOMODATION, PERRL - ENT Exam ENT Exam: Mucous Membranes Moist, Normal Exam - Neck Exam Neck Exam: Full ROM, Normal Inspection. absent: Lymphadenopathy - Respiratory Exam Respiratory Exam: Decreased Breath Sounds - Cardiovascular Exam Cardiovascular Exam: REGULAR RHYTHM, +S1, +S2 - GI/Abdominal Exam GI & Abdominal Exam: Soft, Diminished Bowel Sounds - Rectal Exam Rectal Exam: Deferred Assessment and Plan - Assessment and Plan (Free Text) Plan: Dr. shameka Husain usg neck -ve for thyroid nodule s/p bone marrow biopsy continue iv antibiotics
--- NOTE | 2017-01-25 19:31 | CP.PCM.PN ---
Subjective - Date & Time of Evaluation Date of Evaluation: 01/25/17 Time of Evaluation: 19:31 - Subjective Subjective: pt seen and examined, follow up consult is dictated #[id number] Objective - Vital Signs/Intake and Output Vital Signs (last 24 hours): Temp Pulse Resp BP Pulse Ox 98.2 F 84 20 153/93 H 95 01/25/17 17:12 01/25/17 17:32 01/25/17 17:12 01/25/17 17:12 01/25/17 17:12 Intake and Output: 01/25/17 01/26/17 18:59 06:59 Intake Total 300 Balance 300 - Medications Medications: Current Medications Acetaminophen (Tylenol 325mg Tab) 650 mg PO Q6 PRN PRN Reason: Fever >100.4 F Amlodipine Besylate (Norvasc) 5 mg PO DAILY [facility] Last Admin: 01/25/17 12:38 Dose: Not Given Docusate Sodium (Colace) 100 mg PO BID [facility] Last Admin: 01/25/17 18:06 Dose: 100 mg Epoetin Andrés (Procrit) 20,000 unit IV TTS [facility] Stop: 01/28/17 10:01 Last Admin: 01/23/17 15:10 Dose: 20,000 unit Famotidine (Pepcid) 20 mg PO DAILY [facility] Last Admin: 01/25/17 12:38 Dose: Not Given Ferric Sodium Gluconate Complex (Ferrlecit) 125 mg IVPB TTS [facility] Stop: 01/28/17 10:01 Last Admin: 01/23/17 15:13 Dose: 125 mg Vancomycin HCl 1 gm/ Sodium (Chloride) 250 mls @ 166.7 mls/hr IVPB TTS@1700 [facility] Last Admin: 01/23/17 18:49 Dose: 166.7 mls/hr Tigecycline 50 mg/ Dextrose 100 mls @ 100 mls/hr IV Q12H [facility] Last Admin: 01/25/17 18:08 Dose: 100 mls/hr Insulin Aspart (Novolog) 0 unit SC ACHS [facility] PRN Reason: Protocol Last Admin: 01/25/17 17:38 Dose: Not Given Lactic Acid (Lac-Hydrin 12% Lotion (225 G)) 0 gm EXT DAILY [facility] Last Admin: 01/25/17 12:39 Dose: Not Given Levothyroxine Sodium (Synthroid) 75 mcg PO DAILY@0630 [facility] Last Admin: 01/25/17 06:32 Dose: 75 mcg Metoclopramide HCl (Reglan) 10 mg PO Q6H PRN PRN Reason: Nausea/Vomiting Last Admin: 01/17/17 09:42 Dose: 10 mg Morphine Sulfate (Morphine) 2 mg IVP Q4 PRN PRN Reason: Pain, moderate (4-7) Last Admin: 01/25/17 15:56 Dose: 2 mg Ondansetron HCl (Zofran Inj) 4 mg IVP Q6H PRN PRN Reason: Nausea/Vomiting Paricalcitol (Zemplar) 2 mcg IV TTS [facility] Stop: 01/28/17 10:01 Last Admin: 01/23/17 15:11 Dose: 2 mcg Saccharomyces Boulardii (Florastor) 250 mg PO BID [facility] Last Admin: 01/25/17 18:06 Dose: 250 mg Sucralfate (Carafate Tab) 1 gm PO Q8H [facility] Last Admin: 01/25/17 18:06 Dose: 1 gm Vitamin B Complex/Vit C/Folic Acid (Nephro-Vladislav) 1 tab PO DAILY [facility] Last Admin: 01/25/17 10:26 Dose: 1 tab - Labs Labs: 01/25/17 13:55 01/25/17 13:55 PT 14.6 SECONDS (9.7-12.2) H 01/18/17 11:27 INR 1.3 01/18/17 11:27 APTT 55 SECONDS (21-34) H 01/18/17 11:27
--- NOTE | 2017-01-25 23:29 | PN ---
DATE: 01/25/2017 LOCATION: The patient is located in room 361, bed A. REQUESTED BY: Dr. Willian Munguia. REASON FOR FOLLOWUP: End-stage renal disease for continuation of hemodialysis. HISTORY OF PRESENT ILLNESS: The patient is a 46-year-old middle-aged - [place] male with a history of longstanding hypertension, diabetes, bipolar disorder, end-stage renal disease, endocarditis, multidrug resistant Klebsiella pneumoniae and fungemia who was recently transferred from [facility] to [facility] close to patient's family residence. The patient was subsequently found to have fever, chills and blood culture were drawn in the dialysis and subsequently transferred to the Emergency Room for further evaluation. The blood culture was growing Klebsiella pneumoniae with resistance to all antibiotics except tigecycline. Now, the patient is on tigecycline. The patient is not in acute distress and denies any headache, dizziness. Occasional nausea today. No chest pain, no palpitations, no fever, no cough, no abdominal pain. PHYSICAL EXAMINATION: VITAL SIGNS: As follows: Blood pressure 153/93, pulse 84, respirations 20, temperature 98.2, saturation 95%, height 5 feet 11 inches and weight is 234 pounds. GENERAL: The patient is 46 years old, well built, well nourished, not in distress. HEENT: Pupils normal, reactive to light and accommodation. Conjunctivae pink. Sclerae anicteric. Tongue is moist. NECK: Trachea is midline. LUNGS: Symmetric on both sides. Bilateral breath sounds present. Clear on auscultation. CARDIOVASCULAR: [place] in the fifth intercostal space midclavicular line. S1 and S2 audible. No murmur or gallop. ABDOMEN: Normal in appearance, soft, tympanic. No guarding, no rigidity. No hepatosplenomegaly. CENTRAL NERVOUS SYSTEM: The patient is alert, awake, oriented x 3. Sensory and motor system is grossly within normal limits. EXTREMITIES: No cyanosis, no clubbing, no edema. power in both lower extremities 3-4/5. CURRENT MEDICATIONS: Include as follows: Carafate 1 gram p.o. q. 8 hours, Colace, 100 mg p.o. b.i.d., Glucamide 125 mg 3 times a week, Florastor 250 mg p.o. b.i.d., morphine 2 mg IV q. 4 hours p.r.n. for pain, and Nephro-Vladislav 1 tablet daily, Norvasc 5 mg p.o. daily, Pepcid 20 mg p.o. daily, Procrit 20,000 units 3 times a week, Reglan 10 mg p.o. q. 6 hours p.r.n., Synthroid 75 mcg p.o. daily, tigecycline 50 mg p.o. q. 12 hours, vancomycin 1 gram 3 times a week and Zemplar 2 mcg 3 times a week. LABORATORY DATA: Include as follows: As of 01/25/2017, WBC 3.8, hemoglobin 9.3 , hematocrit is 28.4 and platelets 59 and sodium 139, potassium 3.7, chloride 94 , CO2 26, BUN 24, creatinine 5.7, glucose 82, calcium 8.4, total bili 0.9, AST 64, ALT 31, alkaline phosphatase 537, total protein 6.6, albumin 2.2. . SUMMARY: The patient is a 46-year-old middle-aged -[place] male with a history of bipolar disorder, hypertension, diabetes, end-stage renal disease with gram-negative sepsis secondary to multi-drug resistant organism Klebsiella pneumoniae. IMPRESSION AND PLAN: 1. End-stage renal disease. Continue hemodialysis 3 times a week, Wednesday, , Wednesday. 2. Gram-negative sepsis secondary to Klebsiella pneumoniae, multi-drug resistant organism. Continue tigecycline as per Dr. Crane 50 mg q. 12 hours. 3. Pancytopenia and rule out bone marrow suppression secondary to infection, rule out drug-induced bone marrow suppression. 4. Hypertension. 5. Diabetes. Continue his current medication, Norvasc 5 mg and titrate as needed and continue Procrit and Zemplar during dialysis. 6. Hypothyroidism. Continue synthroid 75 mcg daily. Will follow with you. Consider physical therapy bedside. Thank you for allowing me to participate in your patient's care. Lakhwinder Alcazar MD cc: [id number] TT: 01/25/2017 23:28:35 Confirmation # [id number] Dictation # [id number] kaleigh SERRANO
[2017-01-26 07:10] LABS: BASO % 0.8 % (0.0-2.0); EOS # 0.1 K/uL (0.0-0.7); EOS % 2.9 % (0.0-4.0); HEMATOCRIT 30.2 % (35.0-51.0); LYMPH # 1.3 K/uL (1.0-4.3); LYMPH % 29.3 % (20.0-40.0); MEAN CORPUSCULAR HEMOGLOBIN 28.7 pg (27.0-31.0); MEAN CORPUSCULAR HGB CONC 32.3 g/dL (33.0-37.0); MEAN PLATELET VOLUME 8.5 fL (7.2-11.7); MONO # 0.9 K/uL (0.0-0.8); MONO % 21.5 % (0.0-10.0); NRBC % 0.2 % (0.0-2.0); PLATELET COUNT 61 K/uL (130-400); RED CELL DISTRIBUTION WIDTH 19.1 % (11.5-14.5); WHITE BLOOD COUNT 4.4 K/uL (4.8-10.8)
[2017-01-26] MEDS: (Novolog) Insulin Aspart, Recombinant 100 u/ml 10 ml vial SC SCH ×4 (07:43→22:15)
--- NOTE | 2017-01-26 08:46 | CP.PCM.CON ---
<Raj Rodriguez - Last Filed: 01/26/17 08:47> History of Present Illness - History of Present Illness History of Present Illness: PGY4 GI Fellow Consult Note Patient is a 46yo male with PMHx significant for ESRD on HD T/R/Sa, HTN, hypothyroidism, dyslipidemia who presented to the ED from dialysis following as his HD catheter dislodged. Prior to arrival, patient was also noted to have been febrile and had blood culture positive for Klebsiella pneumonia. Since admission he has undergone replacement of HD catheter and has been treated for Flebsiella bacteremia with IV antibiotic therapy. He was also noted to be pancytopenic and underwent bone marrow bx during this admission which is still pending. Our service has been consulted for new onset abdominal pain that began during this admission and has gradually worsened. Pt states pain predominantly located in the epigastrium but does have radiation of symptoms to the RUQ and LLQ. He state pain is burning, gnawing in nature and 10/10 when severe. He had similar discomofrt over a year ago and underwent EGD/colonoscopy at that time in [place], [place] but is unsure of the results. He admits to nausea and one episode of vomiting yesterday when pain was most severe. Denies any change in stooling habits. PMHx: See HPI PSHx: Left arm AVF, Spinal laminectomy/fusion, Prior chest tube for pneumonia FHx: Mother - DM, CVA, CHF; Father - Unknown malignancy; Brother - asthma Social: Denies tobacco, EtOH or illicit drug use Endo: Admits to EGD/Colonoscopy 1 year ago, unsure of results Review of Systems - Constitutional Constitutional: absent: Anorexia, Chills, Fever - EENT Eyes: absent: Change in Vision Nose/Mouth/Throat: absent: Sore Throat - Cardiovascular Cardiovascular: Leg Edema. absent: Chest Pain, Dyspnea - Respiratory Respiratory: absent: Cough, Dyspnea, Excessive Mucous Production - Gastrointestinal Gastrointestinal: Abdominal Pain, Cramping, Dyspepsia, Heartburn, Nausea, Vomiting. absent: Bloating, Constipation, Diarrhea, Dysphagia, Early Satiety, Hematemesis, Hematochezia, Melena - Genitourinary Genitourinary: absent: Dysuria, Urinary Frequency, Urinary Urgency - Musculoskeletal Musculoskeletal: Back Pain. absent: Neck Pain - Integumentary Integumentary: absent: New Lesions, Rash - Neurological Neurological: absent: Dizziness, Numbness, Focal Weakness - Psychiatric Psychiatric: absent: Anxiety, Depression - Endocrine Endocrine: absent: Polydipsia, Polyphagia, Polyuria - Hematologic/Lymphatic Hematologic: absent: Easy Bleeding, Easy Bruising, Lymphadenopathy Past Patient History - Past Social History Smoking Status: Unknown If Ever Smoked - CARDIAC Hx Hypertension: Yes - ENDOCRINE/METABOLIC Hx Diabetes Mellitus Type 2: Yes - MUSCULOSKELETAL/RHEUMATOLOGICAL Hx Falls: No - PSYCHIATRIC Hx Substance Use: No - SURGICAL HISTORY Other/Comment: RIGHT ARM PICC, RIGHT GROIN PERMA CATH Meds Allergies/Adverse Reactions: Allergies Allergy/AdvReac Type Severity Reaction Status Date / Time No Known Allergies Allergy Verified 01/16/17 14:31 - Medications Medications: Current Medications Acetaminophen (Tylenol 325mg Tab) 650 mg PO Q6 PRN PRN Reason: Fever >100.4 F Amlodipine Besylate (Norvasc) 5 mg PO DAILY [facility] Last Admin: 01/25/17 12:38 Dose: Not Given Docusate Sodium (Colace) 100 mg PO BID [facility] Last Admin: 01/25/17 18:06 Dose: 100 mg Epoetin Andrés (Procrit) 20,000 unit IV TTS [facility] Stop: 01/28/17 10:01 Last Admin: 01/23/17 15:10 Dose: 20,000 unit Famotidine (Pepcid) 20 mg PO DAILY [facility] Last Admin: 01/25/17 12:38 Dose: Not Given Ferric Sodium Gluconate Complex (Ferrlecit) 125 mg IVPB TTS [facility] Stop: 01/28/17 10:01 Last Admin: 01/23/17 15:13 Dose: 125 mg Vancomycin HCl 1 gm/ Sodium (Chloride) 250 mls @ 166.7 mls/hr IVPB TTS@1700 [facility] Last Admin: 01/23/17 18:49 Dose: 166.7 mls/hr Tigecycline 50 mg/ Dextrose 100 mls @ 100 mls/hr IV Q12H [facility] Last Admin: 01/25/17 18:08 Dose: 100 mls/hr Insulin Aspart (Novolog) 0 unit SC ACHS [facility] PRN Reason: Protocol Last Admin: 01/26/17 07:43 Dose: Not Given Lactic Acid (Lac-Hydrin 12% Lotion (225 G)) 0 gm EXT DAILY [facility] Last Admin: 01/25/17 12:39 Dose: Not Given Levothyroxine Sodium (Synthroid) 75 mcg PO DAILY@0630 [facility] Last Admin: 01/25/17 06:32 Dose: 75 mcg Metoclopramide HCl (Reglan) 10 mg PO Q6H PRN PRN Reason: Nausea/Vomiting Last Admin: 01/17/17 09:42 Dose: 10 mg Morphine Sulfate (Morphine) 2 mg IVP Q4 PRN PRN Reason: Pain, moderate (4-7) Last Admin: 01/26/17 01:17 Dose: 2 mg Ondansetron HCl (Zofran Inj) 4 mg IVP Q6H PRN PRN Reason: Nausea/Vomiting Paricalcitol (Zemplar) 2 mcg IV TTS [facility] Stop: 01/28/17 10:01 Last Admin: 01/23/17 15:11 Dose: 2 mcg Saccharomyces Boulardii (Florastor) 250 mg PO BID [facility] Last Admin: 01/25/17 18:06 Dose: 250 mg Sucralfate (Carafate Tab) 1 gm PO Q8H [facility] Last Admin: 01/26/17 01:17 Dose: 1 gm Vitamin B Complex/Vit C/Folic Acid (Nephro-Vladislav) 1 tab PO DAILY [facility] Last Admin: 01/25/17 10:26 Dose: 1 tab Physical Exam - Constitutional Appears: Non-toxic, No Acute Distress - Eye Exam Eye Exam: EOMI, PERRL - ENT Exam ENT Exam: Mucous Membranes Moist - Respiratory Exam Respiratory Exam: Clear to Auscultation Bilateral. absent: Rales, Rhonchi, Wheezes - Cardiovascular Exam Cardiovascular Exam: RRR, +S1, +S2 - GI/Abdominal Exam GI & Abdominal Exam: Normal Bowel Sounds, Soft, Tenderness (epigastric). absent : Distended, Firm, Guarding, Organomegaly, Rigid - Extremities Exam Additional comments: 1+ B/L LE edema - Neurological Exam Neurological exam: Alert, Oriented x3 - Psychiatric Exam Psychiatric exam: Normal Affect, Normal Mood - Skin Skin Exam: Dry, Warm Results - Vital Signs Recent Vital Signs: Last Vital Signs Temp 98.5 F 01/25/17 23:38 Pulse 86 01/25/17 23:38 Resp 20 01/25/17 23:38 BP 150/90 01/25/17 23:38 Pulse Ox 95 01/25/17 23:38 - Labs Result Diagrams: 01/26/17 07:02 01/25/17 13:55 Labs: Laboratory Results - last 24 hr 01/22/17 01/25/17 01/25/17 07:17 11:13 13:55 WBC 3.8 L RBC 3.22 L Hgb 9.3 L Hct 28.4 L MCV 88.3 D MCH 29.0 MCHC 32.8 L RDW 18.2 H Plt Count 59 L MPV 8.8 Neut % (Auto) 49.8 L Lymph % (Auto) 27.2 Cherry % (Auto) 19.3 H Eos % (Auto) 2.7 Baso % (Auto) 1.0 Neut # 1.9 Lymph # 1.0 Cherry # 0.7 Eos # 0.1 Baso # 0.0 Sodium Potassium Chloride Carbon Dioxide Anion Gap BUN Creatinine Est GFR ( Amer) Est GFR (Non-Af Amer) POC Glucose (mg/dL) 105 Random Glucose Calcium Total Bilirubin AST ALT Alkaline Phosphatase Total Protein Albumin Globulin Albumin/Globulin Ratio Thyroperoxidase Ab 13 H 01/25/17 01/25/17 01/25/17 13:55 16:27 21:34 WBC RBC Hgb Hct MCV MCH MCHC RDW Plt Count MPV Neut % (Auto) Lymph % (Auto) Cherry % (Auto) Eos % (Auto) Baso % (Auto) Neut # Lymph # Cherry # Eos # Baso # Sodium 129 L Potassium 3.7 Chloride 94 L Carbon Dioxide 26 Anion Gap 12 BUN 24 H Creatinine 5.7 H Est GFR ( Amer) 13 Est GFR (Non-Af Amer) 11 POC Glucose (mg/dL) 86 109 Random Glucose 82 Calcium 8.4 L Total Bilirubin 0.9 AST 64 H ALT 31 Alkaline Phosphatase 537 H Total Protein 6.6 Albumin 2.2 L Globulin 4.4 H Albumin/Globulin Ratio 0.5 L Thyroperoxidase Ab 01/26/17 01/26/17 07:02 07:13 WBC 4.4 L RBC 3.39 L Hgb 9.7 L Hct 30.2 L MCV 89.0 MCH 28.7 MCHC 32.3 L RDW 19.1 H Plt Count 61 L MPV 8.5 Neut % (Auto) 45.5 L Lymph % (Auto) 29.3 Cherry % (Auto) 21.5 H Eos % (Auto) 2.9 Baso % (Auto) 0.8 Neut # 2.0 Lymph # 1.3 Cherry # 0.9 H Eos # 0.1 Baso # 0.0 Sodium Potassium Chloride Carbon Dioxide Anion Gap BUN Creatinine Est GFR ( Amer) Est GFR (Non-Af Amer) POC Glucose (mg/dL) 87 Random Glucose Calcium Total Bilirubin AST ALT Alkaline Phosphatase Total Protein Albumin Globulin Albumin/Globulin Ratio Thyroperoxidase Ab Assessment & Plan - Assessment and Plan (Free Text) Assessment: Patient is a 46yo male with PMHx significant for ESRD on HD T/R/Sa, HTN, hypothyroidism, dyslipidemia who presented to the ED from dialysis following as his HD catheter dislodged. Our service has been consulted for abdominal pain. -Abdominal pain -Pancytopenia -Klebsiella bacteremia -HAV IgM positivity -Hypothyroidism -ESRD on HD T/R/Sa Plan: -Check abdominal U/S, eval liver parenchyma -Avoid PPI in setting of thrombocytopenia, continue Pepcid as ordered -Continue IV ABX for Klebsiella bacteremia, ID following -HIV viral load undetectable and genotype not determined; possible false positive HIV screening -HAV IgM positive/total negative - LFTs unremarkable; await abdominal U/S; would require supportive care as he is currently receiving -Awaiting bone marrow bx results -Pt to have HD today -NPO past MN for tentative EGD tomorrow morning - Date & Time Date: 01/26/17 Time: 06:10 <Gordo Hutchins - Last Filed: 01/26/17 09:14> Meds - Medications Medications: Current Medications Acetaminophen (Tylenol 325mg Tab) 650 mg PO Q6 PRN PRN Reason: Fever >100.4 F Amlodipine Besylate (Norvasc) 5 mg PO DAILY [facility] Last Admin: 01/25/17 12:38 Dose: Not Given Docusate Sodium (Colace) 100 mg PO BID [facility] Last Admin: 01/25/17 18:06 Dose: 100 mg Epoetin Andrés (Procrit) 20,000 unit IV TTS [facility] Stop: 01/28/17 10:01 Last Admin: 01/23/17 15:10 Dose: 20,000 unit Famotidine (Pepcid) 20 mg PO DAILY [facility] Last Admin: 01/25/17 12:38 Dose: Not Given Ferric Sodium Gluconate Complex (Ferrlecit) 125 mg IVPB TTS [facility] Stop: 01/28/17 10:01 Last Admin: 01/23/17 15:13 Dose: 125 mg Vancomycin HCl 1 gm/ Sodium (Chloride) 250 mls @ 166.7 mls/hr IVPB TTS@1700 [facility] Last Admin: 01/23/17 18:49 Dose: 166.7 mls/hr Tigecycline 50 mg/ Dextrose 100 mls @ 100 mls/hr IV Q12H [facility] Last Admin: 01/25/17 18:08 Dose: 100 mls/hr Insulin Aspart (Novolog) 0 unit SC ACHS [facility] PRN Reason: Protocol Last Admin: 01/26/17 07:43 Dose: Not Given Lactic Acid (Lac-Hydrin 12% Lotion (225 G)) 0 gm EXT DAILY [facility] Last Admin: 01/25/17 12:39 Dose: Not Given Levothyroxine Sodium (Synthroid) 75 mcg PO DAILY@0630 [facility] Last Admin: 01/25/17 06:32 Dose: 75 mcg Metoclopramide HCl (Reglan) 10 mg PO Q6H PRN PRN Reason: Nausea/Vomiting Last Admin: 01/17/17 09:42 Dose: 10 mg Morphine Sulfate (Morphine) 2 mg IVP Q4 PRN PRN Reason: Pain, moderate (4-7) Last Admin: 01/26/17 01:17 Dose: 2 mg Ondansetron HCl (Zofran Inj) 4 mg IVP Q6H PRN PRN Reason: Nausea/Vomiting Paricalcitol (Zemplar) 2 mcg IV TTS [facility] Stop: 01/28/17 10:01 Last Admin: 01/23/17 15:11 Dose: 2 mcg Saccharomyces Boulardii (Florastor) 250 mg PO BID [facility] Last Admin: 01/25/17 18:06 Dose: 250 mg Sucralfate (Carafate Tab) 1 gm PO Q8H [facility] Last Admin: 01/26/17 01:17 Dose: 1 gm Vitamin B Complex/Vit C/Folic Acid (Nephro-Vladislav) 1 tab PO DAILY [facility] Last Admin: 01/25/17 10:26 Dose: 1 tab Results - Vital Signs Recent Vital Signs: Last Vital Signs Temp 98.5 F 01/25/17 23:38 Pulse 86 01/25/17 23:38 Resp 20 01/25/17 23:38 BP 150/90 01/25/17 23:38 Pulse Ox 95 01/25/17 23:38 - Labs Result Diagrams: 01/26/17 07:02 01/26/17 07:02 Labs: Laboratory Results - last 24 hr 01/22/17 01/25/17 01/25/17 07:17 11:13 13:55 WBC 3.8 L RBC 3.22 L Hgb 9.3 L Hct 28.4 L MCV 88.3 D MCH 29.0 MCHC 32.8 L RDW 18.2 H Plt Count 59 L MPV 8.8 Neut % (Auto) 49.8 L Lymph % (Auto) 27.2 Cherry % (Auto) 19.3 H Eos % (Auto) 2.7 Baso % (Auto) 1.0 Neut # 1.9 Lymph # 1.0 Cherry # 0.7 Eos # 0.1 Baso # 0.0 Sodium Potassium Chloride Carbon Dioxide Anion Gap BUN Creatinine Est GFR ( Amer) Est GFR (Non-Af Amer) POC Glucose (mg/dL) 105 Random Glucose Calcium Total Bilirubin AST ALT Alkaline Phosphatase Total Protein Albumin Globulin Albumin/Globulin Ratio Thyroperoxidase Ab 13 H 01/25/17 01/25/17 01/25/17 13:55 16:27 21:34 WBC RBC Hgb Hct MCV MCH MCHC RDW Plt Count MPV Neut % (Auto) Lymph % (Auto) Cherry % (Auto) Eos % (Auto) Baso % (Auto) Neut # Lymph # Cherry # Eos # Baso # Sodium 129 L Potassium 3.7 Chloride 94 L Carbon Dioxide 26 Anion Gap 12 BUN 24 H Creatinine 5.7 H Est GFR ( Amer) 13 Est GFR (Non-Af Amer) 11 POC Glucose (mg/dL) 86 109 Random Glucose 82 Calcium 8.4 L Total Bilirubin 0.9 AST 64 H ALT 31 Alkaline Phosphatase 537 H Total Protein 6.6 Albumin 2.2 L Globulin 4.4 H Albumin/Globulin Ratio 0.5 L Thyroperoxidase Ab 01/26/17 01/26/17 01/26/17 07:02 07:02 07:13 WBC 4.4 L RBC 3.39 L Hgb 9.7 L Hct 30.2 L MCV 89.0 MCH 28.7 MCHC 32.3 L RDW 19.1 H Plt Count 61 L MPV 8.5 Neut % (Auto) 45.5 L Lymph % (Auto) 29.3 Cherry % (Auto) 21.5 H Eos % (Auto) 2.9 Baso % (Auto) 0.8 Neut # 2.0 Lymph # 1.3 Cherry # 0.9 H Eos # 0.1 Baso # 0.0 Sodium 129 L Potassium 3.8 Chloride 96 L Carbon Dioxide 25 Anion Gap 12 BUN 28 H Creatinine 6.3 H Est GFR ( Amer) 12 Est GFR (Non-Af Amer) 10 POC Glucose (mg/dL) 87 Random Glucose 74 L Calcium 8.4 L Total Bilirubin 1.0 AST 64 H ALT 44 Alkaline Phosphatase 589 H Total Protein 6.6 Albumin 2.3 L Globulin 4.4 H Albumin/Globulin Ratio 0.5 L Thyroperoxidase Ab Attending/Attestation - Attestation I have personally seen and examined this patient.: Yes I have fully participated in the care of the patient.: Yes I have reviewed all pertinent clinical information: Yes Notes (Text): 01/26/17 09:03 I have seen and examined patient with GI fellow. Agree with above documentation with the following additions. In brief, this is a 46 year old male with history of ESRD on HD, HTN, hypothyroidism, hyperlipidemia who presented from dialysis following dislodgement of dialysis catheter and for treatment of gram negative bacteremia. GI called for evaluation of abdominal pain, nausea, vomiting which began 2 days ago. He describes a 10/10 intensity intermittent epigastric pain that radiates to RUQ and is worse following meal consumption. This is associated with nausea and one episode of non-bloody emesis. During hospital course, he was also found to be pancytopenic and underwent bone marrow biopsy. He is currently tolerating PO diet without difficulty, though the pain persists. He had an EGD/colonoscopy over one year ago, though cannot recall specific details. HTN ESRD on HD Hypothyroidism Pancytopenia, s/p bone marrow biopsy Gram negative bacteremia Abdominal pain, nausea, vomiting Transaminitis - Diet as tolerated - Obtain abdominal US given epigastric/RUQ pain with elevated LFTs - Continue with antibiotic therapy as per ID - Awaiting results of bone marrow biopsy - May continue with oral H2 ambrose therapy/carafate combination, PPI use should only be initiated with caution given current thrombocytopenia - Will tentatively plan for EGD evaluation tomorrow, NPO after midnight
[2017-01-26 08:51] LABS: ALB/GLOB RATIO 0.5 (1.0-2.1); CALCIUM 8.4 mg/dl (8.6-10.4); POTASSIUM 3.8 mmol/L (3.6-5.2); TOTAL PROTEIN 6.6 g/dL (6.3-8.3)
[2017-01-26 10:02] LABS: BASOPHIL 1 % (0-2); EOSINOPHIL 5 % (0-4); MYELOCYTE 1 % (0-0); NEUTROPHIL 49 % (50-75); TOTAL CELLS COUNTED 100
[2017-01-26] MEDS: Multivitamin Vitamin B Complex (Nephro-Vite) Tab PO SCH (11:34)
[2017-01-26] MEDS: Saccharomyces Boulardi 250 mg Cap PO SCH ×2 (11:34→18:11)
[2017-01-26] MEDS: Ammonium Lactate 12% Lotion (225 g) EXT SCH (11:34)
[2017-01-26] MEDS: Paricalcitol 2 mcg/ml Inj IV SCH ×2 (11:35→12:25)
[2017-01-26] MEDS: Ferric Sodium Gluconat Complex 62.5 mg/5 ml Vial IVPB SCH (11:57)
[2017-01-26] MEDS: Epoetin Alfa Dialysis 20000 UNIT/ML Inj IV SCH (12:20)
--- NOTE | 2017-01-26 15:01 | CP.PCM.PN ---
<Tatiana Tafoya - Last Filed: 01/26/17 17:05> Subjective - Date & Time of Evaluation Date of Evaluation: 01/26/17 Time of Evaluation: 10:00 - Subjective Subjective: Patient seen and examined. Patient went for HD today. Patient continues to complain of abdominal pain. No acute events. Objective - Vital Signs/Intake and Output Vital Signs (last 24 hours): Temp Pulse Resp BP Pulse Ox 97.9 F 78 16 142/88 99 01/26/17 10:20 01/26/17 14:13 01/26/17 10:20 01/26/17 14:13 01/26/17 14:13 Intake and Output: 01/26/17 01/26/17 06:59 18:59 Output Total 400 Balance -400 - Medications Medications: Current Medications Acetaminophen (Tylenol 325mg Tab) 650 mg PO Q6 PRN PRN Reason: Fever >100.4 F Amlodipine Besylate (Norvasc) 5 mg PO DAILY [facility] Last Admin: 01/26/17 11:34 Dose: Not Given Docusate Sodium (Colace) 100 mg PO BID [facility] Last Admin: 01/26/17 11:33 Dose: Not Given Epoetin Andrés (Procrit) 20,000 unit IV TTS [facility] Stop: 01/28/17 10:01 Last Admin: 01/26/17 12:20 Dose: 20,000 unit Famotidine (Pepcid) 20 mg PO DAILY [facility] Last Admin: 01/26/17 11:35 Dose: Not Given Ferric Sodium Gluconate Complex (Ferrlecit) 125 mg IVPB TTS [facility] Stop: 01/28/17 10:01 Last Admin: 01/26/17 11:57 Dose: 125 mg Tigecycline 50 mg/ Dextrose 100 mls @ 100 mls/hr IV Q12H [facility] Last Admin: 01/25/17 18:08 Dose: 100 mls/hr Insulin Aspart (Novolog) 0 unit SC ACHS [facility] PRN Reason: Protocol Last Admin: 01/26/17 11:34 Dose: Not Given Lactic Acid (Lac-Hydrin 12% Lotion (225 G)) 0 gm EXT DAILY [facility] Last Admin: 01/26/17 11:34 Dose: Not Given Levothyroxine Sodium (Synthroid) 75 mcg PO DAILY@0630 [facility] Last Admin: 01/25/17 06:32 Dose: 75 mcg Metoclopramide HCl (Reglan) 10 mg PO Q6H PRN PRN Reason: Nausea/Vomiting Last Admin: 01/17/17 09:42 Dose: 10 mg Morphine Sulfate (Morphine) 2 mg IVP Q4 PRN PRN Reason: Pain, moderate (4-7) Last Admin: 01/26/17 01:17 Dose: 2 mg Ondansetron HCl (Zofran Inj) 4 mg IVP Q6H PRN PRN Reason: Nausea/Vomiting Paricalcitol (Zemplar) 2 mcg IV TTS [facility] Stop: 01/28/17 10:01 Last Admin: 01/26/17 12:25 Dose: 2 mcg Saccharomyces Boulardii (Florastor) 250 mg PO BID [facility] Last Admin: 01/26/17 11:34 Dose: Not Given Sucralfate (Carafate Tab) 1 gm PO Q8H [facility] Last Admin: 01/26/17 11:33 Dose: Not Given Vitamin B Complex/Vit C/Folic Acid (Nephro-Vladislav) 1 tab PO DAILY [facility] Last Admin: 01/26/17 11:34 Dose: Not Given - Labs Labs: 01/26/17 07:02 01/26/17 07:02 PT 14.6 SECONDS (9.7-12.2) H 01/18/17 11:27 INR 1.3 01/18/17 11:27 APTT 55 SECONDS (21-34) H 01/18/17 11:27 - Additional Findings Additional findings: - Constitutional Appears: Non-toxic, No Acute Distress - Eye Exam Eye Exam: EOMI, PERRL - ENT Exam ENT Exam: Mucous Membranes Moist - Respiratory Exam Respiratory Exam: Clear to Auscultation Bilateral. absent: Rales, Rhonchi, Wheezes - Cardiovascular Exam Cardiovascular Exam: RRR, +S1, +S2 - GI/Abdominal Exam GI & Abdominal Exam: Normal Bowel Sounds, Soft, Tenderness (epigastric). absent : Distended, Firm, Guarding, Organomegaly, Rigid - Extremities Exam Additional comments: 1+ B/L LE edema - Neurological Exam Neurological exam: Alert, Oriented x3 - Psychiatric Exam Psychiatric exam: Normal Affect, Normal Mood - Skin Skin Exam: Dry, Warm Assessment and Plan - Assessment and Plan (Free Text) Assessment: Heptatitis: 01/25: GI consult - Dr. Hutchins - f/u recommendations 01/21: repeat panel is shows hep A positive but Hep B is negative 01/19, hep panel shows Hep A postive, infection control nurse called and say patient was reported as chronic Hep B. Will repeat panel. Follow up results. HIV 01/26: Per GI, HIV viral load undetectable and genotype not determined; possible false positive HIV screening? Will f/u with recommendations. 01/25: CD4 count in 300s Toxoplasmosis positive ID consult - Dr. Crane - f/u recommendations 01/21: RPR and Cyrtococcal is negative, Toxoplasmosis is still pending. CD4 count is 334, Viral load is below detectable levels. HIV screen is positive, follow up viral load and cell count. Pancytopenia 01/25: s/p bone marrow biopsy F/U Dr. Husain recommendations 01/22: Bone marrow biopsy today performed by Dr. Husain. 01/21: Could be related to nutrition per Dr. Husain, continue to monitor cbc Dr. Husain consulted, help appreciated Hyponatremia Na 129, stable HTN Norvasc 5mg Hypothryoidism Thyroid US negative for nodules Consulted Dr. Nataly Aragon, patient on 75mcg of synthroid. DM accu checks sliding scale Fever Afebrile since admission ECHO - no mention of vegetation Vanco 1g IV with HD blood culture negative x 5 days urine culture - multiple species Prophylatic measure Carafate 1gm q8h pepcid 20mg hold VTE due to thrombocytpenia. <Justin Mungiua S - Last Filed: 01/26/17 19:18> Objective - Vital Signs/Intake and Output Vital Signs (last 24 hours): Temp Pulse Resp BP Pulse Ox 98.1 F 86 20 155/96 H 98 01/26/17 16:00 01/26/17 16:00 01/26/17 16:00 01/26/17 16:00 01/26/17 16:00 Intake and Output: 01/26/17 01/27/17 18:59 06:59 Intake Total 300 Output Total 400 Balance -100 - Medications Medications: Current Medications Acetaminophen (Tylenol 325mg Tab) 650 mg PO Q6 PRN PRN Reason: Fever >100.4 F Amlodipine Besylate (Norvasc) 5 mg PO DAILY [facility] Last Admin: 01/26/17 11:34 Dose: Not Given Docusate Sodium (Colace) 100 mg PO BID [facility] Last Admin: 01/26/17 18:11 Dose: 100 mg Epoetin Andrés (Procrit) 20,000 unit IV TTS [facility] Stop: 01/28/17 10:01 Last Admin: 01/26/17 12:20 Dose: 20,000 unit Famotidine (Pepcid) 20 mg PO DAILY [facility] Last Admin: 01/26/17 11:35 Dose: Not Given Ferric Sodium Gluconate Complex (Ferrlecit) 125 mg IVPB TTS [facility] Stop: 01/28/17 10:01 Last Admin: 01/26/17 11:57 Dose: 125 mg Tigecycline 50 mg/ Dextrose 100 mls @ 100 mls/hr IV Q12H [facility] Last Admin: 01/26/17 17:00 Dose: 100 mls/hr Insulin Aspart (Novolog) 0 unit SC ACHS [facility] PRN Reason: Protocol Last Admin: 01/26/17 16:30 Dose: Not Given Lactic Acid (Lac-Hydrin 12% Lotion (225 G)) 0 gm EXT DAILY [facility] Last Admin: 01/26/17 11:34 Dose: Not Given Levothyroxine Sodium (Synthroid) 75 mcg PO DAILY@0630 [facility] Last Admin: 01/25/17 06:32 Dose: 75 mcg Metoclopramide HCl (Reglan) 10 mg PO Q6H PRN PRN Reason: Nausea/Vomiting Last Admin: 01/17/17 09:42 Dose: 10 mg Morphine Sulfate (Morphine) 2 mg IVP Q4 PRN PRN Reason: Pain, moderate (4-7) Last Admin: 01/26/17 16:24 Dose: 2 mg Ondansetron HCl (Zofran Inj) 4 mg IVP Q6H PRN PRN Reason: Nausea/Vomiting Paricalcitol (Zemplar) 2 mcg IV TTS [facility] Stop: 01/28/17 10:01 Last Admin: 01/26/17 12:25 Dose: 2 mcg Saccharomyces Boulardii (Florastor) 250 mg PO BID [facility] Last Admin: 01/26/17 18:11 Dose: 250 mg Sucralfate (Carafate Tab) 1 gm PO Q8H [facility] Last Admin: 01/26/17 18:11 Dose: 1 gm Vitamin B Complex/Vit C/Folic Acid (Nephro-Vladislav) 1 tab PO DAILY [facility] Last Admin: 01/26/17 11:34 Dose: Not Given - Labs Labs: 01/26/17 07:02 01/26/17 07:02 PT 14.6 SECONDS (9.7-12.2) H 01/18/17 11:27 INR 1.3 01/18/17 11:27 APTT 55 SECONDS (21-34) H 01/18/17 11:27 Attending/Attestation - Attestation I have personally seen and examined this patient.: Yes I have fully participated in the care of the patient.: Yes I have reviewed all pertinent clinical information, including history, physical exam and plan: Yes Notes (Text): 01/26/17 19:17 case seen and discussed with pt and mx as ordered
--- NOTE | 2017-01-26 15:02 | CP.PCM.PN ---
Subjective - Date & Time of Evaluation Date of Evaluation: 01/26/17 Time of Evaluation: 09:00 - Subjective Subjective: continue to have abdominal pain Objective - Vital Signs/Intake and Output Vital Signs (last 24 hours): Temp Pulse Resp BP Pulse Ox 97.9 F 78 16 142/88 99 01/26/17 10:20 01/26/17 14:13 01/26/17 10:20 01/26/17 14:13 01/26/17 14:13 Intake and Output: 01/26/17 01/26/17 06:59 18:59 Output Total 400 Balance -400 - Medications Medications: Current Medications Acetaminophen (Tylenol 325mg Tab) 650 mg PO Q6 PRN PRN Reason: Fever >100.4 F Amlodipine Besylate (Norvasc) 5 mg PO DAILY [facility] Last Admin: 01/26/17 11:34 Dose: Not Given Docusate Sodium (Colace) 100 mg PO BID [facility] Last Admin: 01/26/17 11:33 Dose: Not Given Epoetin Andrés (Procrit) 20,000 unit IV TTS [facility] Stop: 01/28/17 10:01 Last Admin: 01/26/17 12:20 Dose: 20,000 unit Famotidine (Pepcid) 20 mg PO DAILY [facility] Last Admin: 01/26/17 11:35 Dose: Not Given Ferric Sodium Gluconate Complex (Ferrlecit) 125 mg IVPB TTS [facility] Stop: 01/28/17 10:01 Last Admin: 01/26/17 11:57 Dose: 125 mg Tigecycline 50 mg/ Dextrose 100 mls @ 100 mls/hr IV Q12H [facility] Last Admin: 01/25/17 18:08 Dose: 100 mls/hr Insulin Aspart (Novolog) 0 unit SC ACHS IVÁN PRN Reason: Protocol Last Admin: 01/26/17 11:34 Dose: Not Given Lactic Acid (Lac-Hydrin 12% Lotion (225 G)) 0 gm EXT DAILY [facility] Last Admin: 01/26/17 11:34 Dose: Not Given Levothyroxine Sodium (Synthroid) 75 mcg PO DAILY@0630 [facility] Last Admin: 01/25/17 06:32 Dose: 75 mcg Metoclopramide HCl (Reglan) 10 mg PO Q6H PRN PRN Reason: Nausea/Vomiting Last Admin: 01/17/17 09:42 Dose: 10 mg Morphine Sulfate (Morphine) 2 mg IVP Q4 PRN PRN Reason: Pain, moderate (4-7) Last Admin: 01/26/17 01:17 Dose: 2 mg Ondansetron HCl (Zofran Inj) 4 mg IVP Q6H PRN PRN Reason: Nausea/Vomiting Paricalcitol (Zemplar) 2 mcg IV TTS [facility] Stop: 01/28/17 10:01 Last Admin: 01/26/17 12:25 Dose: 2 mcg Saccharomyces Boulardii (Florastor) 250 mg PO BID [facility] Last Admin: 01/26/17 11:34 Dose: Not Given Sucralfate (Carafate Tab) 1 gm PO Q8H [facility] Last Admin: 01/26/17 11:33 Dose: Not Given Vitamin B Complex/Vit C/Folic Acid (Nephro-Vladislav) 1 tab PO DAILY [facility] Last Admin: 01/26/17 11:34 Dose: Not Given - Labs Labs: 01/26/17 07:02 01/26/17 07:02 PT 14.6 SECONDS (9.7-12.2) H 01/18/17 11:27 INR 1.3 01/18/17 11:27 APTT 55 SECONDS (21-34) H 01/18/17 11:27 - Constitutional Appears: Well - Head Exam Head Exam: ATRAUMATIC, NORMAL INSPECTION, NORMOCEPHALIC - Eye Exam Eye Exam: EOMI, Normal appearance, PERRL Pupil Exam: NORMAL ACCOMODATION, PERRL - ENT Exam ENT Exam: Mucous Membranes Moist, Normal Exam - Neck Exam Neck Exam: Full ROM, Normal Inspection. absent: Lymphadenopathy - Respiratory Exam Respiratory Exam: Decreased Breath Sounds - Cardiovascular Exam Cardiovascular Exam: REGULAR RHYTHM, +S1, +S2 - GI/Abdominal Exam GI & Abdominal Exam: Soft, Diminished Bowel Sounds - Rectal Exam Rectal Exam: Deferred Assessment and Plan - Assessment and Plan (Free Text) Plan: Dr. shamkea Husain f/u labs continue Mx as ordered
--- NOTE | 2017-01-26 15:03 | PN ---
DATE: 01/26/2017 ROOM: 361 This is a 46-year-old male with recent marked anemia and undergoing hematologic workup and management and receiving also iron infusions as noted, and he is also being followed closely for metabolic sejal noa. He remains clinically euthyroid but biochemically has evidence of early hypothyroidism and c urrently tolerating the levothyroxine given as noted thereof. His glycemic levels are also much impr trace at this time with no further insulin requirements as noted. His latest chemistry showed a BUN of 28, sodium 129, potassium 3.8, chloride 96, CO2 25, glucose 74, and creatinine 6.3. His glucose levels have ranged from 87-107 and 109 mg/dL. So at this time, will continue the same levothyroxine dosing given as 75 mcg once daily as ordered. Nataly Aragon MD cc: [id number] TT: 01/26/2017 15:03:07 Confirmation # [id number] Dictation # [id number] mn
[2017-01-26] MEDS: Tigecycline 50 MG in Dextrose 5% In Water 100 ML IV SCH ×2 (17:00→17:05)
--- NOTE | 2017-01-26 18:10 | US ---
HISTORY: abdominal pain, elevated LFTs COMPARISON: None. TECHNIQUE: Sonographic evaluation of the abdomen. FINDINGS: LIVER: Measures 19.1 cm. There is mild diffuse increased echogenicity of the liver parenchyma. No mass. No intrahepatic bile duct dilatation. GALLBLADDER: Surgically absent. COMMON BILE DUCT: Measures 5.0 mm. No stones. No dilatation. PANCREAS: Unremarkable as visualized. No mass. No ductal dilatation. RIGHT KIDNEY: Measures 8.3 cm. Diffuse increased echogenicity. No calculus, mass, or hydronephrosis. LEFT KIDNEY: Measures 9.6cm. Diffuse increased echogenicity. No calculus, mass, or hydronephrosis. SPLEEN: Enlarged and measures 20 cm. . No mass. AORTA: No aneurysmal dilatation. IVC: Unremarkable. OTHER FINDINGS: None. IMPRESSION: Hepatic steatosis. Medical renal disease. Small right kidney. Moderate splenomegaly.
--- NOTE | 2017-01-26 18:32 | CP.PCM.PN ---
Subjective - Date & Time of Evaluation Date of Evaluation: 01/26/17 Time of Evaluation: 18:31 - Subjective Subjective: pt seen and examined, follow up consult is dictated #[id number] stable hd tx, uf 2 lit Objective - Vital Signs/Intake and Output Vital Signs (last 24 hours): Temp Pulse Resp BP Pulse Ox 98.1 F 86 20 155/96 H 98 01/26/17 16:00 01/26/17 16:00 01/26/17 16:00 01/26/17 16:00 01/26/17 16:00 Intake and Output: 01/26/17 01/26/17 06:59 18:59 Intake Total 300 Output Total 400 Balance -100 - Medications Medications: Current Medications Acetaminophen (Tylenol 325mg Tab) 650 mg PO Q6 PRN PRN Reason: Fever >100.4 F Amlodipine Besylate (Norvasc) 5 mg PO DAILY [facility] Last Admin: 01/26/17 11:34 Dose: Not Given Docusate Sodium (Colace) 100 mg PO BID [facility] Last Admin: 01/26/17 18:11 Dose: 100 mg Epoetin Andrés (Procrit) 20,000 unit IV TTS [facility] Stop: 01/28/17 10:01 Last Admin: 01/26/17 12:20 Dose: 20,000 unit Famotidine (Pepcid) 20 mg PO DAILY [facility] Last Admin: 01/26/17 11:35 Dose: Not Given Ferric Sodium Gluconate Complex (Ferrlecit) 125 mg IVPB TTS [facility] Stop: 01/28/17 10:01 Last Admin: 01/26/17 11:57 Dose: 125 mg Tigecycline 50 mg/ Dextrose 100 mls @ 100 mls/hr IV Q12H [facility] Last Admin: 01/26/17 18:23 Dose: 100 mls/hr Insulin Aspart (Novolog) 0 unit SC ACHS IVÁN PRN Reason: Protocol Last Admin: 01/26/17 16:30 Dose: Not Given Lactic Acid (Lac-Hydrin 12% Lotion (225 G)) 0 gm EXT DAILY [facility] Last Admin: 01/26/17 11:34 Dose: Not Given Levothyroxine Sodium (Synthroid) 75 mcg PO DAILY@0630 [facility] Last Admin: 01/25/17 06:32 Dose: 75 mcg Metoclopramide HCl (Reglan) 10 mg PO Q6H PRN PRN Reason: Nausea/Vomiting Last Admin: 01/17/17 09:42 Dose: 10 mg Morphine Sulfate (Morphine) 2 mg IVP Q4 PRN PRN Reason: Pain, moderate (4-7) Last Admin: 01/26/17 16:24 Dose: 2 mg Ondansetron HCl (Zofran Inj) 4 mg IVP Q6H PRN PRN Reason: Nausea/Vomiting Paricalcitol (Zemplar) 2 mcg IV TTS [facility] Stop: 01/28/17 10:01 Last Admin: 01/26/17 12:25 Dose: 2 mcg Saccharomyces Boulardii (Florastor) 250 mg PO BID [facility] Last Admin: 01/26/17 18:11 Dose: 250 mg Sucralfate (Carafate Tab) 1 gm PO Q8H [facility] Last Admin: 01/26/17 18:11 Dose: 1 gm Vitamin B Complex/Vit C/Folic Acid (Nephro-Vladislav) 1 tab PO DAILY [facility] Last Admin: 01/26/17 11:34 Dose: Not Given - Labs Labs: 01/26/17 07:02 01/26/17 07:02 PT 14.6 SECONDS (9.7-12.2) H 01/18/17 11:27 INR 1.3 01/18/17 11:27 APTT 55 SECONDS (21-34) H 01/18/17 11:27
--- NOTE | 2017-01-26 23:14 | PN ---
DATE: 01/26/2017 FOLLOWUP RENAL CONSULTATION The patient is located in room 361, bed A. REQUESTING PHYSICIAN: Dr. Willian Munguia. REASON FOR RENAL CONSULTATION: End-stage renal disease, for continuation of the hemodialysis. HISTORY OF PRESENT ILLNESS: The patient is a 46-year-old middle-aged - [place] male with a past medical history significant for bipolar disorder, hypertension, diabetes, end-stage renal disease, Klebsiella pneumoniae with multidrug resistant organism, endocarditis and fungemia, was recently admitted from the [facility]. From there, the patient was admitted with fever, chills during dialysis on 01/16/2017, and his blood culture from the Dialysis Center was growing Klebsiella pneumoniae with assistance multidrug, sensitive only tigecycline. The patient is not in acute distress. Denies any chest pain, palpitations. Denies any fever or cough. The patient does complain of weakness in both lower extremities and difficult to ambulate. The patient underwent hemodialysis today, had ultrafiltration about 2 liters. PHYSICAL EXAMINATION: VITAL SIGNS: Blood pressure 149/85, pulse 81, respirations 18, temperature 97.9. Height 5 feet 11 inches and weight is 234 pounds. GENERAL: The patient is a 46-year-old male, moderately built, moderately nourished, not in any distress. HEENT: Pupils normal, reactive to light and accommodation. Conjunctivae pink. Sclerae anicteric. Tongue is moist. NECK: Trachea is midline. LUNGS: Symmetric on both sides. Bilateral breath sounds present. Clear on auscultation. CARDIOVASCULAR: [place] in the fifth intercostal space midclavicular line. S1 and S2 audible. No murmur or gallop. ABDOMEN: Normal in appearance, soft, tympanic. No guarding, no rigidity. No hepatosplenomegaly. CENTRAL NERVOUS SYSTEM: The patient is alert, awake, oriented x 2-3. Sensory system is grossly within normal limits. Motor system, power 4/5 in both lower extremities, upper extremities 5/5. CURRENT MEDICATIONS: Include as follows: Carafate 1 gram p.o. q. 8 hours, Colace 100 mg p.o. b.i.d., ferric gluconate 125 mg 3 times a week, Florastor 250 mg p.o. b.i.d., Lac-Hydrin lotion topical and lidocaine 1% solution topical , morphine 2 mg IV q. 4 hours p.r.n., Nephro-Vladislav 1 tablet daily, amlodipine 5 mg p.o. daily, famotidine 20 mg p.o. daily, Epogen, Procrit 20,000 units 3 times a week, Reglan 10 mg p.o. q. 6 hours, levothyroxine 75 mcg daily, tigecycline 50 mg IV piggyback q. 12 hours and Tylenol and Zemplar 2 mcg 3 times a week, and Zofran 4 mg IV q. 6 hours, vancomycin was discontinued. LABORATORY DATA: Include as follows: As of 01/26/2017, WBC 4.4, hemoglobin 9.7 , hematocrit is 30.2, platelets 61 and neutrophils 49, and bands 2, lymphs 23, eosinophils 5, and monocytes 19, myelocytes 1, Other laboratory data: Sodium 129, potassium 3.8, chloride 96, CO2 of 25, BUN 28, creatinine 6.3, glucose 74, calcium 8.4, total bilirubin 1.0, AST 64, ALT 44, alkaline phosphatase 589, total protein 6.6, albumin is 2.3 and the Accu-Cheks 107 and 111. IN SUMMARY: The patient is a 46-year-old middle-aged -[place] male with hypertension, diabetes, bipolar disorder, end-stage renal disease, status post Klebsiella pneumoniae bacteremia with multidrug resistant organism, fungemia, was admitted with fever, chills on 01/16/2017 and now blood culture positive for Klebsiella pneumoniae, resistant multidrug and sensitive to only tigecycline, low H and H, low WBC, low platelets. 1. End-stage renal disease. Continue hemodialysis 3 times a week, Wednesday, , Wednesday. 2. Status post Klebsiella pneumoniae sepsis with multidrug resistance, continue tigecycline 50 mg q. 12 as per ID recommendations. 3. Pancytopenia, rule out bone marrow suppression, rule out immunocompromised state. Ultrasound of the abdomen as of 01/26/2017, liver measures 19.1 cm, mild diffuse increased echogenicity of the liver parenchyma, no mass, no intrahepatic bile duct dilatation. Gallbladder is surgically absent. CBD measures 5 mm. Right kidney measures 8.3 cm, diffuse increased echogenicity and left kidney measures 9.6 cm with diffuse increased echogenicity. Spleen enlargement and measures 20 cm, no mass. Impression: Hepatic steatosis and medical renal disease, small right kidney, moderate splenomegaly. Continue IV antibiotics, tigecycline as per ID recommendation, pancytopenia. Continue IV iron and Procrit, Nephro-Vladislav and follow up with hematology for bone marrow biopsy. 4. Splenomegaly, etiology is not clear, rule out cirrhosis, rule out myeloproliferative disorder. We will follow with you. Thank you for allowing me to participate in your patient's care. Rule out myelodysplastic syndrome. Lakhwinder Alcazar MD cc: [phone] TT: 01/26/2017 23:13:39 Confirmation # [id number] Dictation # [id number] mn [id number]
[2017-01-27] MEDS: Tigecycline 50 MG in Dextrose 5% In Water 100 ML IV SCH ×2 (04:26→17:00)
[2017-01-27] MEDS: Levothyroxine 75 MCG TAB PO SCH (06:19)
[2017-01-27 07:36] LABS: EOS # 0.1 K/uL (0.0-0.7); EOS % 2.3 % (0.0-4.0); HEMATOCRIT 28.7 % (35.0-51.0); LYMPH # 1.2 K/uL (1.0-4.3); LYMPH % 31.4 % (20.0-40.0); MEAN CORPUSCULAR HEMOGLOBIN 29.1 pg (27.0-31.0); MEAN CORPUSCULAR HGB CONC 32.7 g/dL (33.0-37.0); MEAN PLATELET VOLUME 8.8 fL (7.2-11.7); MONO # 0.9 K/uL (0.0-0.8); MONO % 23.5 % (0.0-10.0); NRBC % 0.1 % (0.0-2.0); RED CELL DISTRIBUTION WIDTH 20.1 % (11.5-14.5); WHITE BLOOD COUNT 3.8 K/uL (4.8-10.8)
[2017-01-27] MEDS: (Novolog) Insulin Aspart, Recombinant 100 u/ml 10 ml vial SC SCH ×4 (07:36→21:48)
[2017-01-27 07:47] LABS: POTASSIUM 3.7 mmol/L (3.6-5.2)
[2017-01-27 07:48] LABS: PLATELET COUNT 41 K/uL (130-400)
[2017-01-27 07:50] LABS: ALB/GLOB RATIO 0.5 (1.0-2.1); BILIRUBIN,TOTAL 0.9 mg/dL (0.2-1.3); CALCIUM 7.8 mg/dl (8.6-10.4); TOTAL PROTEIN 6.4 g/dL (6.3-8.3)
[2017-01-27 08:22] LABS: T4 5.53 ug/dL (5.5-11.0)
[2017-01-27 08:35] LABS: THYROID STIMULATING HORMONE 4.25 mIU/L (0.46-4.68)
[2017-01-27 08:54] LABS: INR 1.3
[2017-01-27 09:15] LABS: EOSINOPHIL 1 % (0-4); NEUTROPHIL 54 % (50-75); TOTAL CELLS COUNTED 100
[2017-01-27] MEDS: Saccharomyces Boulardi 250 mg Cap PO SCH ×2 (10:10→18:30)
[2017-01-27] MEDS: Multivitamin Vitamin B Complex (Nephro-Vite) Tab PO SCH (10:11)
[2017-01-27] MEDS: Ammonium Lactate 12% Lotion (225 g) EXT SCH (10:15)
--- NOTE | 2017-01-27 11:02 | CP.PCM.PN ---
Subjective - Date & Time of Evaluation Date of Evaluation: 01/27/17 Time of Evaluation: 09:00 - Subjective Subjective: clinically same Objective - Vital Signs/Intake and Output Vital Signs (last 24 hours): Temp Pulse Resp BP Pulse Ox 97.5 F L 90 20 126/81 97 01/27/17 08:00 01/27/17 08:00 01/27/17 08:00 01/27/17 08:00 01/27/17 08:00 Intake and Output: 01/27/17 01/27/17 06:59 18:59 Intake Total 600 Balance 600 - Medications Medications: Current Medications Acetaminophen (Tylenol 325mg Tab) 650 mg PO Q6 PRN PRN Reason: Fever >100.4 F Amlodipine Besylate (Norvasc) 5 mg PO DAILY [facility] Last Admin: 01/27/17 10:11 Dose: 5 mg Docusate Sodium (Colace) 100 mg PO BID [facility] Last Admin: 01/27/17 10:10 Dose: 100 mg Epoetin Andrés (Procrit) 20,000 unit IV TTS [facility] Stop: 01/28/17 10:01 Last Admin: 01/26/17 12:20 Dose: 20,000 unit Famotidine (Pepcid) 20 mg PO DAILY [facility] Last Admin: 01/27/17 10:11 Dose: 20 mg Ferric Sodium Gluconate Complex (Ferrlecit) 125 mg IVPB TTS [facility] Stop: 01/28/17 10:01 Last Admin: 01/26/17 11:57 Dose: 125 mg Tigecycline 50 mg/ Dextrose 100 mls @ 100 mls/hr IV Q12H [facility] Last Admin: 01/27/17 04:26 Dose: 100 mls/hr Insulin Aspart (Novolog) 0 unit SC ACHS IVÁN PRN Reason: Protocol Last Admin: 01/27/17 07:36 Dose: Not Given Lactic Acid (Lac-Hydrin 12% Lotion (225 G)) 0 gm EXT DAILY [facility] Last Admin: 01/27/17 10:15 Dose: 1 applic Levothyroxine Sodium (Synthroid) 75 mcg PO DAILY@0630 [facility] Last Admin: 01/27/17 06:19 Dose: 75 mcg Metoclopramide HCl (Reglan) 10 mg PO Q6H PRN PRN Reason: Nausea/Vomiting Last Admin: 01/17/17 09:42 Dose: 10 mg Morphine Sulfate (Morphine) 2 mg IVP Q4 PRN PRN Reason: Pain, moderate (4-7) Last Admin: 01/27/17 04:32 Dose: 2 mg Ondansetron HCl (Zofran Inj) 4 mg IVP Q6H PRN PRN Reason: Nausea/Vomiting Paricalcitol (Zemplar) 2 mcg IV TTS [facility] Stop: 01/28/17 10:01 Last Admin: 01/26/17 12:25 Dose: 2 mcg Saccharomyces Boulardii (Florastor) 250 mg PO BID [facility] Last Admin: 01/27/17 10:10 Dose: 250 mg Sucralfate (Carafate Tab) 1 gm PO Q8H [facility] Last Admin: 01/27/17 10:10 Dose: 1 gm Vitamin B Complex/Vit C/Folic Acid (Nephro-Vladislav) 1 tab PO DAILY [facility] Last Admin: 01/27/17 10:11 Dose: 1 tab - Labs Labs: 01/27/17 07:20 01/27/17 07:20 PT 15.5 SECONDS (9.7-12.2) H 01/27/17 08:44 INR 1.3 01/27/17 08:44 APTT 55 SECONDS (21-34) H 01/18/17 11:27 - Constitutional Appears: Well - Head Exam Head Exam: ATRAUMATIC, NORMAL INSPECTION, NORMOCEPHALIC - Eye Exam Eye Exam: EOMI, Normal appearance, PERRL Pupil Exam: NORMAL ACCOMODATION, PERRL - ENT Exam ENT Exam: Mucous Membranes Moist, Normal Exam - Neck Exam Neck Exam: Full ROM, Normal Inspection. absent: Lymphadenopathy - Respiratory Exam Respiratory Exam: Decreased Breath Sounds - Cardiovascular Exam Cardiovascular Exam: REGULAR RHYTHM, +S1, +S2 - GI/Abdominal Exam GI & Abdominal Exam: Soft, Diminished Bowel Sounds - Rectal Exam Rectal Exam: Deferred Assessment and Plan - Assessment and Plan (Free Text) Plan: dR. Rodrigue Hutchins for EGD for abdominal pain continue rx for sepsis f/u labs
--- NOTE | 2017-01-27 11:19 | CP.PCM.PN ---
Subjective - Date & Time of Evaluation Date of Evaluation: 01/27/17 Time of Evaluation: 09:45 - Subjective Subjective: Medicine Progress Note Patient seen and examined. Patient states that he feels well today. Pt is NPO for EGD this morning. Denies fever, chills, nausea, vomiting, abdominal pain, chest pain and shortness of breath. Objective - Vital Signs/Intake and Output Vital Signs (last 24 hours): Temp Pulse Resp BP Pulse Ox 97.5 F L 90 20 126/81 97 01/27/17 08:00 01/27/17 08:00 01/27/17 08:00 01/27/17 08:00 01/27/17 08:00 Intake and Output: 01/27/17 01/27/17 06:59 18:59 Intake Total 600 Balance 600 - Medications Medications: Current Medications Acetaminophen (Tylenol 325mg Tab) 650 mg PO Q6 PRN PRN Reason: Fever >100.4 F Amlodipine Besylate (Norvasc) 5 mg PO DAILY [facility] Last Admin: 01/27/17 10:11 Dose: 5 mg Docusate Sodium (Colace) 100 mg PO BID [facility] Last Admin: 01/27/17 10:10 Dose: 100 mg Epoetin Andrés (Procrit) 20,000 unit IV TTS [facility] Stop: 01/28/17 10:01 Last Admin: 01/26/17 12:20 Dose: 20,000 unit Famotidine (Pepcid) 20 mg PO DAILY [facility] Last Admin: 01/27/17 10:11 Dose: 20 mg Ferric Sodium Gluconate Complex (Ferrlecit) 125 mg IVPB TTS [facility] Stop: 01/28/17 10:01 Last Admin: 01/26/17 11:57 Dose: 125 mg Tigecycline 50 mg/ Dextrose 100 mls @ 100 mls/hr IV Q12H [facility] Last Admin: 01/27/17 04:26 Dose: 100 mls/hr Insulin Aspart (Novolog) 0 unit SC ACHS IVÁN PRN Reason: Protocol Last Admin: 01/27/17 07:36 Dose: Not Given Lactic Acid (Lac-Hydrin 12% Lotion (225 G)) 0 gm EXT DAILY [facility] Last Admin: 01/27/17 10:15 Dose: 1 applic Levothyroxine Sodium (Synthroid) 75 mcg PO DAILY@0630 [facility] Last Admin: 01/27/17 06:19 Dose: 75 mcg Metoclopramide HCl (Reglan) 10 mg PO Q6H PRN PRN Reason: Nausea/Vomiting Last Admin: 01/17/17 09:42 Dose: 10 mg Morphine Sulfate (Morphine) 2 mg IVP Q4 PRN PRN Reason: Pain, moderate (4-7) Last Admin: 01/27/17 04:32 Dose: 2 mg Ondansetron HCl (Zofran Inj) 4 mg IVP Q6H PRN PRN Reason: Nausea/Vomiting Paricalcitol (Zemplar) 2 mcg IV TTS [facility] Stop: 01/28/17 10:01 Last Admin: 01/26/17 12:25 Dose: 2 mcg Saccharomyces Boulardii (Florastor) 250 mg PO BID [facility] Last Admin: 01/27/17 10:10 Dose: 250 mg Sucralfate (Carafate Tab) 1 gm PO Q8H [facility] Last Admin: 01/27/17 10:10 Dose: 1 gm Vitamin B Complex/Vit C/Folic Acid (Nephro-Vladislav) 1 tab PO DAILY [facility] Last Admin: 01/27/17 10:11 Dose: 1 tab - Labs Labs: 01/27/17 07:20 01/27/17 07:20 PT 15.5 SECONDS (9.7-12.2) H 01/27/17 08:44 INR 1.3 01/27/17 08:44 APTT 55 SECONDS (21-34) H 01/18/17 11:27 - Constitutional Appears: Non-toxic, No Acute Distress - Head Exam Head Exam: ATRAUMATIC, NORMOCEPHALIC - Eye Exam Eye Exam: Normal appearance - ENT Exam ENT Exam: Mucous Membranes Moist - Respiratory Exam Respiratory Exam: Clear to Ausculation Bilateral, NORMAL BREATHING PATTERN. absent: Wheezes, Respiratory Distress - Cardiovascular Exam Cardiovascular Exam: REGULAR RHYTHM, +S1, +S2 - GI/Abdominal Exam GI & Abdominal Exam: Soft, Normal Bowel Sounds - Extremities Exam Extremities Exam: Pedal Edema - Neurological Exam Neurological Exam: Alert, Awake, Oriented x3 - Psychiatric Exam Psychiatric exam: Normal Affect, Normal Mood - Skin Skin Exam: Dry, Intact, Normal Color, Warm Assessment and Plan - Assessment and Plan (Free Text) Assessment: Heptatitis: GI consult - Dr. Hutchins - f/u recommendations. NPO for EGD today. repeat panel is shows hep A positive but Hep B is negative 01/19, hep panel shows Hep A postive, infection control nurse called and say patient was reported as chronic Hep B. HIV 01/26: Per GI, HIV viral load undetectable and genotype not determined; possible false positive HIV screening? Will f/u with recommendations. 01/25: CD4 count in 300s Toxoplasmosis positive ID consult - Dr. Crane - f/u recommendations 01/21: RPR and Cyrtococcal is negative, Toxoplasmosis is still pending. CD4 count is 334, Viral load is below detectable levels. HIV screen is positive, follow up viral load and cell count. Pancytopenia s/p bone marrow biopsy- f/u results 01/22: Bone marrow biopsy today performed by Dr. Husain. Could be related to nutrition per Dr. Husain, continue to monitor cbc Dr. Husain consulted, help appreciated Hyponatremia Na 128, continue to monitor HTN Norvasc 5mg Hypothryoidism Thyroid US negative for nodules Consulted Dr. Nataly Aragon, patient on 75mcg of synthroid. DM accu checks sliding scale Fever Afebrile since admission ECHO - no mention of vegetation Vanco 1g IV with HD blood culture negative x 5 days urine culture - multiple species Prophylatic measure Carafate 1gm q8h pepcid 20mg hold VTE due to thrombocytpenia.
[2017-01-27] MEDS ORDERED: Lidocaine Hydrochloride 10 ML INJ ONE (13:56)
[2017-01-27] MEDS ORDERED: Propofol 10 mg/ml Inj (20 ML) ONE (13:56)
--- NOTE | 2017-01-27 16:54 | PN ---
DATE: 01/27/2017 LOCATION: Room 361. SUBJECTIVE: This is a 46-year-old male with recent overt hypothyroidism and underlying type 2 diabet es with no insulin requirements at this time and is now being followed closely for metabolic manageme nt. His latest chemistry showed a BUN of 22, sodium 128, potassium 3.7, chloride 96, CO2 24, glucose 70, and creatinine 4.9. His glucose levels have ranged from 83-90 mg/dL. He also has progressive r enal insufficiency with advanced azotemia as noted thereof. So at this time, we will continue the lo w-dose levothyroxine replacement therapy given as 75 mcg once daily as ordered. We will titrate incr ementally as indicated to optimize metabolic control. We will follow. Nataly Aragon MD cc: [id number] TT: 01/27/2017 16:53:14 Confirmation # [id number] Dictation # [id number]
--- NOTE | 2017-01-27 17:18 | CP.PCM.PN ---
Subjective - Date & Time of Evaluation Date of Evaluation: 01/27/17 Time of Evaluation: 17:18 - Subjective Subjective: pt seen and examined, follow up consult is dictated #[id number] for hd in am c/w iv abx for 14 days as per id Objective - Vital Signs/Intake and Output Vital Signs (last 24 hours): Temp Pulse Resp BP Pulse Ox 98.5 F 84 20 148/94 H 95 01/27/17 16:00 01/27/17 16:00 01/27/17 16:00 01/27/17 16:00 01/27/17 16:00 Intake and Output: 01/27/17 01/27/17 06:59 18:59 Intake Total 600 150 Balance 600 150 - Medications Medications: Current Medications Acetaminophen (Tylenol 325mg Tab) 650 mg PO Q6 PRN PRN Reason: Fever >100.4 F Amlodipine Besylate (Norvasc) 5 mg PO DAILY [facility] Last Admin: 01/27/17 10:11 Dose: 5 mg Docusate Sodium (Colace) 100 mg PO BID [facility] Last Admin: 01/27/17 10:10 Dose: 100 mg Epoetin Andrés (Procrit) 20,000 unit IV TTS [facility] Stop: 01/28/17 10:01 Last Admin: 01/26/17 12:20 Dose: 20,000 unit Famotidine (Pepcid) 20 mg PO BID [facility] Ferric Sodium Gluconate Complex (Ferrlecit) 125 mg IVPB TTS [facility] Stop: 01/28/17 10:01 Last Admin: 01/26/17 11:57 Dose: 125 mg Tigecycline 50 mg/ Dextrose 100 mls @ 100 mls/hr IV Q12H [facility] Last Admin: 01/27/17 04:26 Dose: 100 mls/hr Insulin Aspart (Novolog) 0 unit SC ACHS [facility] PRN Reason: Protocol Last Admin: 01/27/17 11:46 Dose: Not Given Lactic Acid (Lac-Hydrin 12% Lotion (225 G)) 0 gm EXT DAILY [facility] Last Admin: 01/27/17 10:15 Dose: 1 applic Levothyroxine Sodium (Synthroid) 75 mcg PO DAILY@0630 [facility] Last Admin: 01/27/17 06:19 Dose: 75 mcg Metoclopramide HCl (Reglan) 10 mg PO Q6H PRN PRN Reason: Nausea/Vomiting Last Admin: 01/17/17 09:42 Dose: 10 mg Morphine Sulfate (Morphine) 2 mg IVP Q4 PRN PRN Reason: Pain, moderate (4-7) Last Admin: 01/27/17 04:32 Dose: 2 mg Ondansetron HCl (Zofran Inj) 4 mg IVP Q6H PRN PRN Reason: Nausea/Vomiting Paricalcitol (Zemplar) 2 mcg IV TTS [facility] Stop: 01/28/17 10:01 Last Admin: 01/26/17 12:25 Dose: 2 mcg Saccharomyces Boulardii (Florastor) 250 mg PO BID [facility] Last Admin: 01/27/17 10:10 Dose: 250 mg Sucralfate (Carafate Tab) 1 gm PO Q8H [facility] Last Admin: 01/27/17 10:10 Dose: 1 gm Vitamin B Complex/Vit C/Folic Acid (Nephro-Vladislav) 1 tab PO DAILY [facility] Last Admin: 01/27/17 10:11 Dose: 1 tab - Labs Labs: 01/27/17 07:20 01/27/17 07:20 PT 15.5 SECONDS (9.7-12.2) H 01/27/17 08:44 INR 1.3 01/27/17 08:44 APTT 55 SECONDS (21-34) H 01/18/17 11:27
--- NOTE | 2017-01-27 17:30 | CP.PCM.PN ---
Subjective - Date & Time of Evaluation Date of Evaluation: 01/27/17 Time of Evaluation: 09:00 - Subjective Subjective: MDRO Blood consider GOGO cont tygacil 14 days Objective - Vital Signs/Intake and Output Vital Signs (last 24 hours): Temp Pulse Resp BP Pulse Ox 98.5 F 84 20 148/94 H 95 01/27/17 16:00 01/27/17 16:00 01/27/17 16:00 01/27/17 16:00 01/27/17 16:00 Intake and Output: 01/27/17 01/27/17 06:59 18:59 Intake Total 600 150 Balance 600 150 - Medications Medications: Current Medications Acetaminophen (Tylenol 325mg Tab) 650 mg PO Q6 PRN PRN Reason: Fever >100.4 F Amlodipine Besylate (Norvasc) 5 mg PO DAILY [facility] Last Admin: 01/27/17 10:11 Dose: 5 mg Docusate Sodium (Colace) 100 mg PO BID [facility] Last Admin: 01/27/17 10:10 Dose: 100 mg Epoetin Andrés (Procrit) 20,000 unit IV TTS [facility] Stop: 01/28/17 10:01 Last Admin: 01/26/17 12:20 Dose: 20,000 unit Famotidine (Pepcid) 20 mg PO BID [facility] Ferric Sodium Gluconate Complex (Ferrlecit) 125 mg IVPB TTS [facility] Stop: 01/28/17 10:01 Last Admin: 01/26/17 11:57 Dose: 125 mg Tigecycline 50 mg/ Dextrose 100 mls @ 100 mls/hr IV Q12H [facility] Last Admin: 01/27/17 04:26 Dose: 100 mls/hr Insulin Aspart (Novolog) 0 unit SC ACHS [facility] PRN Reason: Protocol Last Admin: 01/27/17 11:46 Dose: Not Given Lactic Acid (Lac-Hydrin 12% Lotion (225 G)) 0 gm EXT DAILY [facility] Last Admin: 01/27/17 10:15 Dose: 1 applic Levothyroxine Sodium (Synthroid) 75 mcg PO DAILY@0630 [facility] Last Admin: 01/27/17 06:19 Dose: 75 mcg Metoclopramide HCl (Reglan) 10 mg PO Q6H PRN PRN Reason: Nausea/Vomiting Last Admin: 01/17/17 09:42 Dose: 10 mg Morphine Sulfate (Morphine) 2 mg IVP Q4 PRN PRN Reason: Pain, moderate (4-7) Last Admin: 01/27/17 04:32 Dose: 2 mg Ondansetron HCl (Zofran Inj) 4 mg IVP Q6H PRN PRN Reason: Nausea/Vomiting Paricalcitol (Zemplar) 2 mcg IV TTS [facility] Stop: 01/28/17 10:01 Last Admin: 01/26/17 12:25 Dose: 2 mcg Saccharomyces Boulardii (Florastor) 250 mg PO BID [facility] Last Admin: 01/27/17 10:10 Dose: 250 mg Sucralfate (Carafate Tab) 1 gm PO Q8H [facility] Last Admin: 01/27/17 10:10 Dose: 1 gm Vitamin B Complex/Vit C/Folic Acid (Nephro-Vladislav) 1 tab PO DAILY [facility] Last Admin: 01/27/17 10:11 Dose: 1 tab - Labs Labs: 01/27/17 07:20 01/27/17 07:20 PT 15.5 SECONDS (9.7-12.2) H 01/27/17 08:44 INR 1.3 01/27/17 08:44 APTT 55 SECONDS (21-34) H 01/18/17 11:27 - Constitutional Appears: Non-toxic, Chronically Ill - Head Exam Head Exam: NORMOCEPHALIC - Eye Exam Eye Exam: absent: Scleral icterus - ENT Exam ENT Exam: Mucous Membranes Dry - Neck Exam Neck Exam: absent: Lymphadenopathy - Respiratory Exam Respiratory Exam: Decreased Breath Sounds, Clear to Ausculation Bilateral - Cardiovascular Exam Cardiovascular Exam: REGULAR RHYTHM, +S1, +S2 - GI/Abdominal Exam GI & Abdominal Exam: Distended, Soft. absent: Tenderness - Rectal Exam Rectal Exam: Deferred - Exam Exam: NORMAL INSPECTION - Extremities Exam Extremities Exam: absent: Calf Tenderness, Pedal Edema - Back Exam Back Exam: absent: CVA tenderness (L), CVA tenderness (R) Assessment and Plan (1) Fever Status: Acute (2) HIV antibody positive Status: Acute (3) Pancytopenia Status: Acute (4) HTN (hypertension) Status: Acute (5) Diabetes Status: Acute (6) Hypothyroidism Status: Acute
--- NOTE | 2017-01-27 22:49 | CP.PCM.PN ---
Subjective - Date & Time of Evaluation Date of Evaluation: 01/27/17 Time of Evaluation: 18:00 - Subjective Subjective: No complaints. Objective - Vital Signs/Intake and Output Vital Signs (last 24 hours): Temp Pulse Resp BP Pulse Ox 98.5 F 84 20 148/94 H 95 01/27/17 16:00 01/27/17 16:00 01/27/17 16:00 01/27/17 16:00 01/27/17 16:00 Intake and Output: 01/27/17 01/28/17 18:59 06:59 Intake Total 150 Balance 150 - Medications Medications: Current Medications Acetaminophen (Tylenol 325mg Tab) 650 mg PO Q6 PRN PRN Reason: Fever >100.4 F Amlodipine Besylate (Norvasc) 5 mg PO DAILY [facility] Last Admin: 01/27/17 10:11 Dose: 5 mg Docusate Sodium (Colace) 100 mg PO BID [facility] Last Admin: 01/27/17 18:29 Dose: 100 mg Epoetin Andrés (Procrit) 20,000 unit IV TTS [facility] Stop: 01/28/17 10:01 Last Admin: 01/26/17 12:20 Dose: 20,000 unit Famotidine (Pepcid) 20 mg PO BID [facility] Last Admin: 01/27/17 18:30 Dose: 20 mg Ferric Sodium Gluconate Complex (Ferrlecit) 125 mg IVPB TTS [facility] Stop: 01/28/17 10:01 Last Admin: 01/26/17 11:57 Dose: 125 mg Tigecycline 50 mg/ Dextrose 100 mls @ 100 mls/hr IV Q12H [facility] Last Admin: 01/27/17 17:00 Dose: 100 mls/hr Insulin Aspart (Novolog) 0 unit SC ACHS [facility] PRN Reason: Protocol Last Admin: 01/27/17 21:48 Dose: Not Given Lactic Acid (Lac-Hydrin 12% Lotion (225 G)) 0 gm EXT DAILY [facility] Last Admin: 01/27/17 10:15 Dose: 1 applic Levothyroxine Sodium (Synthroid) 75 mcg PO DAILY@0630 [facility] Last Admin: 01/27/17 06:19 Dose: 75 mcg Metoclopramide HCl (Reglan) 10 mg PO Q6H PRN PRN Reason: Nausea/Vomiting Last Admin: 01/17/17 09:42 Dose: 10 mg Morphine Sulfate (Morphine) 2 mg IVP Q4 PRN PRN Reason: Pain, moderate (4-7) Last Admin: 01/27/17 21:46 Dose: 2 mg Ondansetron HCl (Zofran Inj) 4 mg IVP Q6H PRN PRN Reason: Nausea/Vomiting Paricalcitol (Zemplar) 2 mcg IV TTS [facility] Stop: 01/28/17 10:01 Last Admin: 01/26/17 12:25 Dose: 2 mcg Saccharomyces Boulardii (Florastor) 250 mg PO BID [facility] Last Admin: 01/27/17 18:30 Dose: 250 mg Sucralfate (Carafate Tab) 1 gm PO Q8H [facility] Last Admin: 01/27/17 18:29 Dose: 1 gm Vitamin B Complex/Vit C/Folic Acid (Nephro-Vladislav) 1 tab PO DAILY [facility] Last Admin: 01/27/17 10:11 Dose: 1 tab - Labs Labs: 01/27/17 07:20 01/27/17 07:20 PT 15.5 SECONDS (9.7-12.2) H 01/27/17 08:44 INR 1.3 01/27/17 08:44 APTT 55 SECONDS (21-34) H 01/18/17 11:27 - Head Exam Head Exam: ATRAUMATIC - Eye Exam Eye Exam: Normal appearance - ENT Exam ENT Exam: Mucous Membranes Dry - Respiratory Exam Respiratory Exam: NORMAL BREATHING PATTERN - Cardiovascular Exam Cardiovascular Exam: +S1, +S2 - GI/Abdominal Exam GI & Abdominal Exam: Normal Bowel Sounds Assessment and Plan (1) Pancytopenia Assessment & Plan: s/p bone marrow biopsy, results pending Status: Acute (2) Coagulopathy Status: Acute
--- NOTE | 2017-01-27 23:06 | PN ---
DATE: 01/27/2017 The patient is located in room 361, bed A. REQUESTED BY: Dr. Willian Munguia. REASON FOR RENAL CONSULTATION: End-stage renal disease, gram-negative sepsis and continuation of hemodialysis. HISTORY OF PRESENT ILLNESS: The patient is a 46-year-old male with a past medical history significant for hypertension, diabetes, end-stage renal disease , multidrug resistant Klebsiella pneumoniae bacteremia, endocarditis, fungemia, who was recently transferred to subacute rehab in [facility]. The patient was sent from the dialysis unit on 01/16/2017 with fever, chills, and subsequently, the patient was found to have Klebsiella pneumoniae sepsis, multidrug resistant organism and sensitive only tigecycline. The patient is on IV antibiotics. The patient is feeling better, not in acute distress. Denies any headache, dizziness. Denies any chest pain, palpitations. Denies any fever or cough. PHYSICAL EXAMINATION: VITAL SIGNS: As follows: Blood pressure 148/94, pulse 84, respirations 20, temperature 98.5, saturation 96 %, height 5 feet 11 inches and weight is 234 pounds. GENERAL: The patient is a 46-year-old middle-aged male, moderately built, moderately nourished, not in acute distress. HEENT: Pupils normal, reactive to light and accommodation. Conjunctivae pink. Sclerae anicteric. Tongue is moist. NECK: Trachea midline. LUNGS: Symmetric on both sides. Bilateral breath sounds present. Clear on auscultation. CARDIOVASCULAR: [place] in the fifth intercostal space midclavicular line. S1 and S2 audible. No murmur or gallop. ABDOMEN: Normal in appearance, soft, tympanic. No guarding, no rigidity. No hepatosplenomegaly. CENTRAL NERVOUS SYSTEM: The patient is alert, awake, oriented x 3. EXTREMITIES: No cyanosis, no clubbing, no edema. Sensory system is grossly within normal limits. Motor power 4/5 in both lower extremities and 5/5 in upper extremities. CURRENT MEDICATIONS: Include as follows: Carafate 1 gram p.o. q. 8 hours, Colace 100 mg p.o. b.i.d., Ferrlecit 125 mg IV 3 times a week, Florastor 250 mg p.o. b.i.d., Lac-Hydrin lotion, morphine 2 mg IV q. 4 hours p.r.n., Nephro-Vladislav 1 tablet p.o. daily, amlodipine 5 mg p.o. daily, NovoLog for sliding scale, Pepcid 20 mg p.o. b.i.d., Epogen 20,000 units IV 3 times a week, Reglan 10 mg p.o. q. 6 hours, Synthroid 75 mcg daily, tigecycline 50 mg q. 12 hours, Tylenol , Zemplar 2 mcg 3 times a week, and Zofran 4 mg IV q. 6 hours p.r.n. LABORATORY DATA: Include as follows: As of 01/27/2017, WBC 3.8, hemoglobin 9.4 , hematocrit is 28.7 and platelets is 41. Neutrophils 54, lymphocytes 25 and monocytes 20, eosinophils 1, and PT 15.5, INR 1.3. Sodium 128, potassium 3.7, chloride 96, CO2 of 24, BUN 22, creatinine 4.9, and glucose 70, calcium 7.8, total bilirubin 0.9. AST 71, ALT 33, alkaline phosphatase 561, total protein 6.4, and albumin is 2.1, thyroxine level is 5.5. TSH is 4.25. SUMMARY: The patient is a 46-year-old middle-aged -[place] male with a history of longstanding hypertension, diabetes, end-stage renal disease, status post endocarditis and Klebseilla pneumoniae, multidrug resistant organism bacteremia. 1. End-stage renal disease. Continue hemodialysis 3 times a week, Wednesday, , Wednesday. 2. Klebsiella pneumoniae sepsis with multidrug resistant organism. Continue tigecycline 50 mg q. 12 hours. 3. Pancytopenia, etiology is not clear, rule out immunocompromised state, rule out bone marrow suppression secondary to infection. 4. Hypertension. Blood pressure is stable. Continue his current medications, Norvasc and titrate as needed to keep systolic blood pressure below 130/80. We will follow with you. Thank you for allowing me to participate in your patient's care. Continue antibiotics as per Dr. Crane for 14 days. Lakhwinder Alcazar MD cc: [id number] TT: 01/27/2017 23:05:47 Confirmation # [id number] Dictation # [id number] [id number]
[2017-01-28] MEDS: Tigecycline 50 MG in Dextrose 5% In Water 100 ML IV SCH ×2 (05:30→20:49)
[2017-01-28] MEDS: Levothyroxine 75 MCG TAB PO SCH (06:14)
[2017-01-28 07:38] LABS: BASO % 0.8 % (0.0-2.0); EOS # 0.1 K/uL (0.0-0.7); EOS % 2.1 % (0.0-4.0); HEMATOCRIT 29.2 % (35.0-51.0); LYMPH # 1.2 K/uL (1.0-4.3); LYMPH % 27.9 % (20.0-40.0); MEAN CELL VOLUME 89.3 fL (80.0-94.0); MEAN CORPUSCULAR HEMOGLOBIN 29.4 pg (27.0-31.0); MEAN CORPUSCULAR HGB CONC 32.9 g/dL (33.0-37.0); MEAN PLATELET VOLUME 8.7 fL (7.2-11.7); MONO # 0.8 K/uL (0.0-0.8); MONO % 19.2 % (0.0-10.0); NRBC % 0.1 % (0.0-2.0); RED CELL DISTRIBUTION WIDTH 20.7 % (11.5-14.5); WHITE BLOOD COUNT 4.2 K/uL (4.8-10.8)
[2017-01-28] MEDS: (Novolog) Insulin Aspart, Recombinant 100 u/ml 10 ml vial SC SCH ×4 (07:40→21:42)
[2017-01-28 07:53] LABS: POTASSIUM 3.7 mmol/L (3.6-5.2)
[2017-01-28 07:55] LABS: ALB/GLOB RATIO 0.5 (1.0-2.1); BILIRUBIN,TOTAL 1.1 mg/dL (0.2-1.3); TOTAL PROTEIN 6.6 g/dL (6.3-8.3)
[2017-01-28 07:56] LABS: CALCIUM 7.9 mg/dl (8.6-10.4)
--- NOTE | 2017-01-28 08:45 | CP.PCM.PN ---
<Raj Rodriguez - Last Filed: 01/28/17 08:46> Subjective - Date & Time of Evaluation Date of Evaluation: 01/28/17 Time of Evaluation: 06:30 - Subjective Subjective: PGY4 GI Fellow Progress Note Patient seen and examined bedside this morning. The patient denies any new complaints. Abdominal pain improved. No events overnight. 12 system ROS performed and negative except where stated. Objective - Vital Signs/Intake and Output Vital Signs (last 24 hours): Temp Pulse Resp BP Pulse Ox 98.3 F 84 20 151/91 H 95 01/28/17 08:01 01/28/17 08:01 01/28/17 08:01 01/28/17 08:01 01/28/17 08:01 Intake and Output: 01/28/17 01/28/17 06:59 18:59 Intake Total 220 Output Total 250 Balance -30 - Medications Medications: Current Medications Acetaminophen (Tylenol 325mg Tab) 650 mg PO Q6 PRN PRN Reason: Fever >100.4 F Amlodipine Besylate (Norvasc) 5 mg PO DAILY [facility] Last Admin: 01/27/17 10:11 Dose: 5 mg Docusate Sodium (Colace) 100 mg PO BID [facility] Last Admin: 01/27/17 18:29 Dose: 100 mg Epoetin Andrés (Procrit) 20,000 unit IV TTS [facility] Stop: 01/28/17 10:01 Last Admin: 01/26/17 12:20 Dose: 20,000 unit Famotidine (Pepcid) 20 mg PO BID [facility] Last Admin: 01/27/17 18:30 Dose: 20 mg Ferric Sodium Gluconate Complex (Ferrlecit) 125 mg IVPB TTS [facility] Stop: 01/28/17 10:01 Last Admin: 01/26/17 11:57 Dose: 125 mg Tigecycline 50 mg/ Dextrose 100 mls @ 100 mls/hr IV Q12H [facility] Last Admin: 01/28/17 05:30 Dose: 100 mls/hr Insulin Aspart (Novolog) 0 unit SC ACHS [facility] PRN Reason: Protocol Last Admin: 01/28/17 07:40 Dose: Not Given Lactic Acid (Lac-Hydrin 12% Lotion (225 G)) 0 gm EXT DAILY [facility] Last Admin: 01/27/17 10:15 Dose: 1 applic Levothyroxine Sodium (Synthroid) 75 mcg PO DAILY@0630 [facility] Last Admin: 01/28/17 06:14 Dose: 75 mcg Metoclopramide HCl (Reglan) 10 mg PO Q6H PRN PRN Reason: Nausea/Vomiting Last Admin: 01/17/17 09:42 Dose: 10 mg Morphine Sulfate (Morphine) 2 mg IVP Q4 PRN PRN Reason: Pain, moderate (4-7) Last Admin: 01/28/17 06:32 Dose: 2 mg Ondansetron HCl (Zofran Inj) 4 mg IVP Q6H PRN PRN Reason: Nausea/Vomiting Paricalcitol (Zemplar) 2 mcg IV TTS [facility] Stop: 01/28/17 10:01 Last Admin: 01/26/17 12:25 Dose: 2 mcg Saccharomyces Boulardii (Florastor) 250 mg PO BID [facility] Last Admin: 01/27/17 18:30 Dose: 250 mg Sucralfate (Carafate Tab) 1 gm PO Q8H [facility] Last Admin: 01/28/17 01:49 Dose: Not Given Vitamin B Complex/Vit C/Folic Acid (Nephro-Vladislav) 1 tab PO DAILY [facility] Last Admin: 01/27/17 10:11 Dose: 1 tab - Labs Labs: 01/28/17 06:35 01/28/17 06:35 PT 15.5 SECONDS (9.7-12.2) H 01/27/17 08:44 INR 1.3 01/27/17 08:44 APTT 55 SECONDS (21-34) H 01/18/17 11:27 - Constitutional Appears: Non-toxic, No Acute Distress, Chronically Ill - Eye Exam Eye Exam: EOMI, PERRL - ENT Exam ENT Exam: Mucous Membranes Moist - Respiratory Exam Respiratory Exam: Clear to Ausculation Bilateral. absent: Rales, Rhonchi, Wheezes - Cardiovascular Exam Cardiovascular Exam: RRR, +S1, +S2 - GI/Abdominal Exam GI & Abdominal Exam: Soft, Tenderness (mild epigastric), Normal Bowel Sounds. absent: Distended, Firm, Guarding, Rigid, Organomegaly - Extremities Exam Extremities Exam: Normal Inspection. absent: Pedal Edema - Neurological Exam Neurological Exam: Alert, Awake, Oriented x3 - Psychiatric Exam Psychiatric exam: Normal Affect, Normal Mood - Skin Skin Exam: Dry, Warm Assessment and Plan - Assessment and Plan (Free Text) Assessment: Patient is a 46yo male with PMHx significant for ESRD on HD T/R/Sa, HTN, hypothyroidism, dyslipidemia who presented to the ED from dialysis following as his HD catheter dislodged. Our service has been consulted for abdominal pain. -Abdominal pain, erosive gastropathy on EGD -Pancytopenia -Klebsiella bacteremia -HAV IgM positivity -Hypothyroidism -ESRD on HD T/R/Sa Plan: -Cannot initiate PPI in setting of thrombocytopenia -Awaiting bone marrow biopsy -Increased Pepcid to BID dosing -Await EGD biopsy results -Continue IV ABX for Klebsiella bacteremia, ID following -Pt to have HD today -Diet as tolerated <Gordo Hutchins - Last Filed: 01/28/17 13:30> Objective - Vital Signs/Intake and Output Vital Signs (last 24 hours): Temp Pulse Resp BP Pulse Ox 98.1 F 86 20 155/91 H 96 01/28/17 09:40 01/28/17 09:40 01/28/17 09:40 01/28/17 12:40 01/28/17 09:40 Intake and Output: 01/28/17 01/28/17 06:59 18:59 Intake Total 220 Output Total 250 Balance -30 - Medications Medications: Current Medications Acetaminophen (Tylenol 325mg Tab) 650 mg PO Q6 PRN PRN Reason: Fever >100.4 F Amlodipine Besylate (Norvasc) 5 mg PO DAILY [facility] Last Admin: 01/28/17 10:16 Dose: Not Given Docusate Sodium (Colace) 100 mg PO BID [facility] Last Admin: 01/28/17 10:16 Dose: Not Given Famotidine (Pepcid) 20 mg PO BID [facility] Last Admin: 01/28/17 10:16 Dose: Not Given Tigecycline 50 mg/ Dextrose 100 mls @ 100 mls/hr IV Q12H [facility] Last Admin: 01/28/17 05:30 Dose: 100 mls/hr Insulin Aspart (Novolog) 0 unit SC ACHS [facility] PRN Reason: Protocol Last Admin: 01/28/17 07:40 Dose: Not Given Lactic Acid (Lac-Hydrin 12% Lotion (225 G)) 0 gm EXT DAILY [facility] Last Admin: 01/28/17 10:16 Dose: Not Given Levothyroxine Sodium (Synthroid) 75 mcg PO DAILY@0630 [facility] Last Admin: 01/28/17 06:14 Dose: 75 mcg Metoclopramide HCl (Reglan) 10 mg PO Q6H PRN PRN Reason: Nausea/Vomiting Last Admin: 01/17/17 09:42 Dose: 10 mg Morphine Sulfate (Morphine) 2 mg IVP Q4 PRN PRN Reason: Pain, moderate (4-7) Last Admin: 01/28/17 06:32 Dose: 2 mg Ondansetron HCl (Zofran Inj) 4 mg IVP Q6H PRN PRN Reason: Nausea/Vomiting Saccharomyces Boulardii (Florastor) 250 mg PO BID [facility] Last Admin: 01/28/17 10:16 Dose: Not Given Sucralfate (Carafate Tab) 1 gm PO Q8H [facility] Last Admin: 01/28/17 10:16 Dose: Not Given Vitamin B Complex/Vit C/Folic Acid (Nephro-Vladislav) 1 tab PO DAILY [facility] Last Admin: 01/28/17 10:16 Dose: Not Given - Labs Labs: 01/28/17 06:35 01/28/17 06:35 PT 15.5 SECONDS (9.7-12.2) H 01/27/17 08:44 INR 1.3 01/27/17 08:44 APTT 55 SECONDS (21-34) H 01/18/17 11:27 Attending/Attestation - Attestation I have personally seen and examined this patient.: Yes I have fully participated in the care of the patient.: Yes I have reviewed all pertinent clinical information, including history, physical exam and plan: Yes Notes (Text): 01/28/17 13:27 I have seen and examined patient with GI fellow. No acute events overnight. He is seen resting in bed and appears comfortable. His abdominal pain is still present, though improved compared to prior. He denies nausea, vomiting, fever/ chills. Tolerating PO diet without difficulty. ESRD on HD Pancytopenia s/p bone marrow biopsy Gram negative bacteremia Abdominal pain s/p EGD showing erosive gastropathy - Continue with diet as tolerated - Suggest H2 ambrose therapy twice daily along with carafate. Patient unable to use PPI at this time given thrombocytopenia. - Awaiting biopsy results from EGD - Continue with antibiotic therapy as per ID - No ongoing GI issues at this time, will sign off case. Suggest outpatient GI follow up, please reconsult as necessary, thank you.
[2017-01-28] MEDS: Saccharomyces Boulardi 250 mg Cap PO SCH ×2 (10:16→18:00)
[2017-01-28] MEDS: Multivitamin Vitamin B Complex (Nephro-Vite) Tab PO SCH (10:16)
[2017-01-28] MEDS: Ammonium Lactate 12% Lotion (225 g) EXT SCH (10:16)
[2017-01-28] MEDS: Ferric Sodium Gluconat Complex 62.5 mg/5 ml Vial IVPB SCH (13:07)
[2017-01-28] MEDS: Epoetin Alfa Dialysis 20000 UNIT/ML Inj IV SCH (13:13)
[2017-01-28] MEDS: Paricalcitol 2 mcg/ml Inj IV SCH (13:14)
[2017-01-28] MEDS ORDERED: Paricalcitol 2 mcg/ml Inj IV ONE (13:15)
[2017-01-28] MEDS ORDERED: Epoetin Alfa Dialysis 20000 UNIT/ML Inj IV ONE (13:15)
[2017-01-28] MEDS ORDERED: Ferric Sodium Gluconat Complex 62.5 mg/5 ml Vial IVPB ONE (13:15)
--- NOTE | 2017-01-28 13:21 | CP.PCM.PN ---
Subjective - Date & Time of Evaluation Date of Evaluation: 01/28/17 Time of Evaluation: 09:55 - Subjective Subjective: PGY2 Medicine Note - Dr. Rosmery Munguia's service: Patient seen and examined at bedside this AM. Patient says he feels well. He reports mild dry cough. Patient denies fever, chills, chest pain, abdominal pain , nausea, vomiting, diarrhea, constipation. Objective - Vital Signs/Intake and Output Vital Signs (last 24 hours): Temp Pulse Resp BP Pulse Ox 98.1 F 86 20 155/91 H 96 01/28/17 09:40 01/28/17 09:40 01/28/17 09:40 01/28/17 12:40 01/28/17 09:40 Intake and Output: 01/28/17 01/28/17 06:59 18:59 Intake Total 220 Output Total 250 Balance -30 - Medications Medications: Current Medications Acetaminophen (Tylenol 325mg Tab) 650 mg PO Q6 PRN PRN Reason: Fever >100.4 F Amlodipine Besylate (Norvasc) 5 mg PO DAILY [facility] Last Admin: 01/28/17 10:16 Dose: Not Given Docusate Sodium (Colace) 100 mg PO BID [facility] Last Admin: 01/28/17 10:16 Dose: Not Given Famotidine (Pepcid) 20 mg PO BID [facility] Last Admin: 01/28/17 10:16 Dose: Not Given Tigecycline 50 mg/ Dextrose 100 mls @ 100 mls/hr IV Q12H [facility] Last Admin: 01/28/17 05:30 Dose: 100 mls/hr Insulin Aspart (Novolog) 0 unit SC ACHS [facility] PRN Reason: Protocol Last Admin: 01/28/17 07:40 Dose: Not Given Lactic Acid (Lac-Hydrin 12% Lotion (225 G)) 0 gm EXT DAILY [facility] Last Admin: 01/28/17 10:16 Dose: Not Given Levothyroxine Sodium (Synthroid) 75 mcg PO DAILY@0630 [facility] Last Admin: 01/28/17 06:14 Dose: 75 mcg Metoclopramide HCl (Reglan) 10 mg PO Q6H PRN PRN Reason: Nausea/Vomiting Last Admin: 01/17/17 09:42 Dose: 10 mg Morphine Sulfate (Morphine) 2 mg IVP Q4 PRN PRN Reason: Pain, moderate (4-7) Last Admin: 01/28/17 06:32 Dose: 2 mg Ondansetron HCl (Zofran Inj) 4 mg IVP Q6H PRN PRN Reason: Nausea/Vomiting Saccharomyces Boulardii (Florastor) 250 mg PO BID [facility] Last Admin: 01/28/17 10:16 Dose: Not Given Sucralfate (Carafate Tab) 1 gm PO Q8H [facility] Last Admin: 01/28/17 10:16 Dose: Not Given Vitamin B Complex/Vit C/Folic Acid (Nephro-Vladislav) 1 tab PO DAILY [facility] Last Admin: 01/28/17 10:16 Dose: Not Given - Labs Labs: 01/28/17 06:35 01/28/17 06:35 PT 15.5 SECONDS (9.7-12.2) H 01/27/17 08:44 INR 1.3 01/27/17 08:44 APTT 55 SECONDS (21-34) H 01/18/17 11:27 - Constitutional Appears: Non-toxic, No Acute Distress - Head Exam Head Exam: NORMAL INSPECTION - Eye Exam Eye Exam: EOMI - ENT Exam ENT Exam: Mucous Membranes Moist - Respiratory Exam Respiratory Exam: Clear to Ausculation Bilateral, NORMAL BREATHING PATTERN. absent: Rales, Rhonchi, Wheezes - Cardiovascular Exam Cardiovascular Exam: REGULAR RHYTHM, +S1, +S2, Murmur. absent: Gallop, Rubs - GI/Abdominal Exam GI & Abdominal Exam: Soft, Normal Bowel Sounds. absent: Tenderness - Extremities Exam Extremities Exam: Normal Capillary Refill, Pedal Edema - Neurological Exam Neurological Exam: Alert, Oriented x3 - Psychiatric Exam Psychiatric exam: Normal Affect, Normal Mood - Skin Skin Exam: Normal Color, Warm Assessment and Plan - Assessment and Plan (Free Text) Assessment: Heptatitis: GI consult - Dr. Hutchins - help appreciated EGD 01/27/17 - erosive gastropathy No PPI because of thrombocytopenia Pepcid 20mg PO BID repeat panel is shows hep A positive but Hep B is negative 01/19, hep panel shows Hep A postive, infection control nurse called and say patient was reported as chronic Hep B. HIV 01/28: Patient is on antivirals which is why his viral load is undetectable. Continue antivirals 01/26: Per GI, HIV viral load undetectable and genotype not determined; possible false positive HIV screening? Will f/u with recommendations. 01/25: CD4 count in 300s Toxoplasmosis positive ID consult - Dr. Crane - f/u recommendations 01/21: RPR and Cyrtococcal is negative, Toxoplasmosis is still pending. CD4 count is 334, Viral load is below detectable levels. HIV screen is positive, follow up viral load and cell count. Pancytopenia s/p bone marrow biopsy- f/u results in longterm 01/22: Bone marrow biopsy today performed by Dr. Husain. Could be related to nutrition per Dr. Husain, continue to monitor cbc Dr. Husain consulted, help appreciated Hyponatremia Na 129, stable HTN Norvasc 5mg PO daily Hypothryoidism Thyroid US negative for nodules Consulted Dr. Nataly Aragon, patient on 75mcg of synthroid. DM accu checks sliding scale Fever Afebrile since admission ECHO - no mention of vegetation Tigacyl 50mg IV Q12H x 7 days blood culture negative x 5 days urine culture - multiple species Prophylatic measure Carafate 1gm q8h pepcid 20mg hold VTE due to thrombocytpenia. D/C to [facility] today Discuss with Dr. Rsomery Munguia
--- NOTE | 2017-01-28 13:51 | PN ---
DATE: 01/28/2017 ROOM: 361 This is a 46-year-old male with recent uncontrolled type 2 diabetes with extremes of glycemic fluctua tions, which have improved at this time. He is also being followed closely for management of recent hypothyroidism as noted thereof. He remains clinically and biochemically euthyroid at this time and the latest thyroid studies showed a T4 of 5.53 with a TSH of 4.25 as noted. His latest chemistries include a BUN of 26, sodium 129, po tassium 3.7, chloride 96, CO2 22, glucose 79 and creatinine 5.9. So at this time, we will continue the same levothyroxine replacement therapy given as 75 mcg once philippe ly as ordered. We will titrate incrementally as indicated to optimize metabolic control. We will fo llow and advise accordingly. Nataly Aragon MD cc: [id number] TT: 01/28/2017 13:51:24 Confirmation # [id number] Dictation # [id number] en
--- NOTE | 2017-01-28 17:50 | CP.PCM.PN ---
Subjective - Date & Time of Evaluation Date of Evaluation: 01/28/17 Time of Evaluation: 18:00 - Subjective Subjective: No complaints. Objective - Vital Signs/Intake and Output Vital Signs (last 24 hours): Temp Pulse Resp BP Pulse Ox 98.8 F 93 H 20 159/86 H 96 01/28/17 16:00 01/28/17 16:00 01/28/17 16:00 01/28/17 16:00 01/28/17 16:00 Intake and Output: 01/28/17 01/28/17 06:59 18:59 Intake Total 220 280 Output Total 250 0 Balance -30 280 - Medications Medications: Current Medications Acetaminophen (Tylenol 325mg Tab) 650 mg PO Q6 PRN PRN Reason: Fever >100.4 F Amlodipine Besylate (Norvasc) 5 mg PO DAILY [facility] Last Admin: 01/28/17 10:16 Dose: Not Given Docusate Sodium (Colace) 100 mg PO BID [facility] Last Admin: 01/28/17 10:16 Dose: Not Given Famotidine (Pepcid) 20 mg PO BID [facility] Last Admin: 01/28/17 10:16 Dose: Not Given Tigecycline 50 mg/ Dextrose 100 mls @ 100 mls/hr IV Q12H [facility] Last Admin: 01/28/17 05:30 Dose: 100 mls/hr Insulin Aspart (Novolog) 0 unit SC ACHS [facility] PRN Reason: Protocol Last Admin: 01/28/17 07:40 Dose: Not Given Lactic Acid (Lac-Hydrin 12% Lotion (225 G)) 0 gm EXT DAILY [facility] Last Admin: 01/28/17 10:16 Dose: Not Given Levothyroxine Sodium (Synthroid) 75 mcg PO DAILY@0630 [facility] Last Admin: 01/28/17 06:14 Dose: 75 mcg Metoclopramide HCl (Reglan) 10 mg PO Q6H PRN PRN Reason: Nausea/Vomiting Last Admin: 01/17/17 09:42 Dose: 10 mg Morphine Sulfate (Morphine) 2 mg IVP Q4 PRN PRN Reason: Pain, moderate (4-7) Last Admin: 01/28/17 06:32 Dose: 2 mg Ondansetron HCl (Zofran Inj) 4 mg IVP Q6H PRN PRN Reason: Nausea/Vomiting Saccharomyces Boulardii (Florastor) 250 mg PO BID [facility] Last Admin: 01/28/17 10:16 Dose: Not Given Sucralfate (Carafate Tab) 1 gm PO Q8H [facility] Last Admin: 01/28/17 10:16 Dose: Not Given Vitamin B Complex/Vit C/Folic Acid (Nephro-Vladislav) 1 tab PO DAILY [facility] Last Admin: 01/28/17 10:16 Dose: Not Given - Labs Labs: 01/28/17 06:35 01/28/17 06:35 PT 15.5 SECONDS (9.7-12.2) H 01/27/17 08:44 INR 1.3 01/27/17 08:44 APTT 55 SECONDS (21-34) H 01/18/17 11:27 - Head Exam Head Exam: ATRAUMATIC - Eye Exam Eye Exam: Normal appearance - ENT Exam ENT Exam: Mucous Membranes Dry - Respiratory Exam Respiratory Exam: NORMAL BREATHING PATTERN - Cardiovascular Exam Cardiovascular Exam: +S1, +S2 - GI/Abdominal Exam GI & Abdominal Exam: Normal Bowel Sounds - Extremities Exam Extremities Exam: Pedal Edema Assessment and Plan (1) Pancytopenia Assessment & Plan: awaiting bone marrow results; can f/u as outpatient given stability of counts. Status: Acute (2) Coagulopathy Status: Acute
--- NOTE | 2017-01-28 18:28 | CP.PCM.PN ---
Subjective - Date & Time of Evaluation Date of Evaluation: 01/28/17 Time of Evaluation: 10:00 - Subjective Subjective: discussed on rounds needs min 14 days IV tigecyl will need removal of PICC Objective - Vital Signs/Intake and Output Vital Signs (last 24 hours): Temp Pulse Resp BP Pulse Ox 98.8 F 93 H 20 159/86 H 96 01/28/17 16:00 01/28/17 16:00 01/28/17 16:00 01/28/17 16:00 01/28/17 16:00 Intake and Output: 01/28/17 01/28/17 06:59 18:59 Intake Total 220 280 Output Total 250 0 Balance -30 280 - Medications Medications: Current Medications Acetaminophen (Tylenol 325mg Tab) 650 mg PO Q6 PRN PRN Reason: Fever >100.4 F Amlodipine Besylate (Norvasc) 5 mg PO DAILY [facility] Last Admin: 01/28/17 10:16 Dose: Not Given Docusate Sodium (Colace) 100 mg PO BID [facility] Last Admin: 01/28/17 10:16 Dose: Not Given Famotidine (Pepcid) 20 mg PO BID [facility] Last Admin: 01/28/17 10:16 Dose: Not Given Tigecycline 50 mg/ Dextrose 100 mls @ 100 mls/hr IV Q12H [facility] Last Admin: 01/28/17 05:30 Dose: 100 mls/hr Insulin Aspart (Novolog) 0 unit SC ACHS [facility] PRN Reason: Protocol Last Admin: 01/28/17 07:40 Dose: Not Given Lactic Acid (Lac-Hydrin 12% Lotion (225 G)) 0 gm EXT DAILY [facility] Last Admin: 01/28/17 10:16 Dose: Not Given Levothyroxine Sodium (Synthroid) 75 mcg PO DAILY@0630 [facility] Last Admin: 01/28/17 06:14 Dose: 75 mcg Metoclopramide HCl (Reglan) 10 mg PO Q6H PRN PRN Reason: Nausea/Vomiting Last Admin: 01/17/17 09:42 Dose: 10 mg Morphine Sulfate (Morphine) 2 mg IVP Q4 PRN PRN Reason: Pain, moderate (4-7) Last Admin: 01/28/17 06:32 Dose: 2 mg Ondansetron HCl (Zofran Inj) 4 mg IVP Q6H PRN PRN Reason: Nausea/Vomiting Saccharomyces Boulardii (Florastor) 250 mg PO BID [facility] Last Admin: 01/28/17 10:16 Dose: Not Given Sucralfate (Carafate Tab) 1 gm PO Q8H [facility] Last Admin: 01/28/17 10:16 Dose: Not Given Vitamin B Complex/Vit C/Folic Acid (Nephro-Vladislav) 1 tab PO DAILY [facility] Last Admin: 01/28/17 10:16 Dose: Not Given - Labs Labs: 01/28/17 06:35 01/28/17 06:35 PT 15.5 SECONDS (9.7-12.2) H 01/27/17 08:44 INR 1.3 01/27/17 08:44 APTT 55 SECONDS (21-34) H 01/18/17 11:27 - Constitutional Appears: Non-toxic, Cachectic, Chronically Ill - Head Exam Head Exam: NORMOCEPHALIC - Eye Exam Eye Exam: PERRL. absent: Scleral icterus - ENT Exam ENT Exam: Mucous Membranes Dry - Neck Exam Neck Exam: absent: Lymphadenopathy - Respiratory Exam Respiratory Exam: Decreased Breath Sounds, Rhonchi - Cardiovascular Exam Cardiovascular Exam: REGULAR RHYTHM - GI/Abdominal Exam GI & Abdominal Exam: Distended, Soft Assessment and Plan (1) Fever Status: Acute (2) HIV antibody positive Status: Acute (3) Pancytopenia Status: Acute (4) HTN (hypertension) Status: Acute (5) Diabetes Status: Acute (6) Hypothyroidism Status: Acute
--- NOTE | 2017-01-28 20:21 | CP.PCM.PN ---
Subjective - Date & Time of Evaluation Date of Evaluation: 01/28/17 Time of Evaluation: 20:21 - Subjective Subjective: pt seen and examined, follow up consult is dictated #[id number] s/p hd today, uf Objective - Vital Signs/Intake and Output Vital Signs (last 24 hours): Temp Pulse Resp BP Pulse Ox 98.8 F 93 H 20 159/86 H 96 01/28/17 16:00 01/28/17 16:00 01/28/17 16:00 01/28/17 16:00 01/28/17 16:00 Intake and Output: 01/28/17 01/29/17 18:59 06:59 Intake Total 280 Output Total 0 Balance 280 - Medications Medications: Current Medications Acetaminophen (Tylenol 325mg Tab) 650 mg PO Q6 PRN PRN Reason: Fever >100.4 F Amlodipine Besylate (Norvasc) 5 mg PO DAILY [facility] Last Admin: 01/28/17 10:16 Dose: Not Given Docusate Sodium (Colace) 100 mg PO BID [facility] Last Admin: 01/28/17 18:00 Dose: 100 mg Famotidine (Pepcid) 20 mg PO BID [facility] Last Admin: 01/28/17 18:00 Dose: 20 mg Tigecycline 50 mg/ Dextrose 100 mls @ 100 mls/hr IV Q12H [facility] Last Admin: 01/28/17 05:30 Dose: 100 mls/hr Insulin Aspart (Novolog) 0 unit SC ACHS [facility] PRN Reason: Protocol Last Admin: 01/28/17 07:40 Dose: Not Given Lactic Acid (Lac-Hydrin 12% Lotion (225 G)) 0 gm EXT DAILY [facility] Last Admin: 01/28/17 10:16 Dose: Not Given Levothyroxine Sodium (Synthroid) 75 mcg PO DAILY@0630 [facility] Last Admin: 01/28/17 06:14 Dose: 75 mcg Metoclopramide HCl (Reglan) 10 mg PO Q6H PRN PRN Reason: Nausea/Vomiting Last Admin: 01/17/17 09:42 Dose: 10 mg Morphine Sulfate (Morphine) 2 mg IVP Q4 PRN PRN Reason: Pain, moderate (4-7) Last Admin: 01/28/17 17:50 Dose: 2 mg Ondansetron HCl (Zofran Inj) 4 mg IVP Q6H PRN PRN Reason: Nausea/Vomiting Saccharomyces Boulardii (Florastor) 250 mg PO BID [facility] Last Admin: 01/28/17 10:16 Dose: Not Given Sucralfate (Carafate Tab) 1 gm PO Q8H [facility] Last Admin: 01/28/17 18:00 Dose: 1 gm Vitamin B Complex/Vit C/Folic Acid (Nephro-Vladislav) 1 tab PO DAILY [facility] Last Admin: 01/28/17 10:16 Dose: Not Given - Labs Labs: 01/28/17 06:35 01/28/17 06:35 PT 15.5 SECONDS (9.7-12.2) H 01/27/17 08:44 INR 1.3 01/27/17 08:44 APTT 55 SECONDS (21-34) H 01/18/17 11:27
--- NOTE | 2017-01-28 21:49 | CP.PCM.PN ---
Subjective - Date & Time of Evaluation Date of Evaluation: 01/28/17 Time of Evaluation: 09:00 - Subjective Subjective: abdominal pain improve after EGD afebrile Objective - Vital Signs/Intake and Output Vital Signs (last 24 hours): Temp Pulse Resp BP Pulse Ox 98.8 F 93 H 20 159/86 H 96 01/28/17 16:00 01/28/17 16:00 01/28/17 16:00 01/28/17 16:00 01/28/17 16:00 Intake and Output: 01/28/17 01/29/17 18:59 06:59 Intake Total 380 Output Total 0 Balance 380 - Medications Medications: Current Medications Acetaminophen (Tylenol 325mg Tab) 650 mg PO Q6 PRN PRN Reason: Fever >100.4 F Amlodipine Besylate (Norvasc) 5 mg PO DAILY [facility] Last Admin: 01/28/17 10:16 Dose: Not Given Docusate Sodium (Colace) 100 mg PO BID [facility] Last Admin: 01/28/17 18:00 Dose: 100 mg Famotidine (Pepcid) 20 mg PO BID [facility] Last Admin: 01/28/17 18:00 Dose: 20 mg Tigecycline 50 mg/ Dextrose 100 mls @ 100 mls/hr IV Q12H [facility] Last Admin: 01/28/17 20:49 Dose: 100 mls/hr Insulin Aspart (Novolog) 0 unit SC ACHS [facility] PRN Reason: Protocol Last Admin: 01/28/17 21:42 Dose: Not Given Lactic Acid (Lac-Hydrin 12% Lotion (225 G)) 0 gm EXT DAILY [facility] Last Admin: 01/28/17 10:16 Dose: Not Given Levothyroxine Sodium (Synthroid) 75 mcg PO DAILY@0630 [facility] Last Admin: 01/28/17 06:14 Dose: 75 mcg Metoclopramide HCl (Reglan) 10 mg PO Q6H PRN PRN Reason: Nausea/Vomiting Last Admin: 01/17/17 09:42 Dose: 10 mg Morphine Sulfate (Morphine) 2 mg IVP Q4 PRN PRN Reason: Pain, moderate (4-7) Last Admin: 01/28/17 17:50 Dose: 2 mg Ondansetron HCl (Zofran Inj) 4 mg IVP Q6H PRN PRN Reason: Nausea/Vomiting Saccharomyces Boulardii (Florastor) 250 mg PO BID [facility] Last Admin: 01/28/17 18:00 Dose: 250 mg Sucralfate (Carafate Tab) 1 gm PO Q8H [facility] Last Admin: 01/28/17 18:00 Dose: 1 gm Vitamin B Complex/Vit C/Folic Acid (Nephro-Vladislav) 1 tab PO DAILY [facility] Last Admin: 01/28/17 10:16 Dose: Not Given - Labs Labs: 01/28/17 06:35 01/28/17 06:35 PT 15.5 SECONDS (9.7-12.2) H 01/27/17 08:44 INR 1.3 01/27/17 08:44 APTT 55 SECONDS (21-34) H 01/18/17 11:27 - Constitutional Appears: Well - Head Exam Head Exam: ATRAUMATIC, NORMAL INSPECTION, NORMOCEPHALIC - Eye Exam Eye Exam: EOMI, Normal appearance, PERRL Pupil Exam: NORMAL ACCOMODATION, PERRL - ENT Exam ENT Exam: Mucous Membranes Moist, Normal Exam - Neck Exam Neck Exam: Full ROM, Normal Inspection. absent: Lymphadenopathy - Respiratory Exam Respiratory Exam: Decreased Breath Sounds - Cardiovascular Exam Cardiovascular Exam: REGULAR RHYTHM, +S1, +S2 - GI/Abdominal Exam GI & Abdominal Exam: Soft, Diminished Bowel Sounds - Rectal Exam Rectal Exam: Deferred Assessment and Plan - Assessment and Plan (Free Text) Plan: EGD shows erosive gastropathy Dr. Cuong myles waiting for bone marrow result continue Rx as ordered
--- NOTE | 2017-01-28 23:37 | PN ---
DATE: 01/28/2017 REQUESTED BY: Dr. Willian Munguia REASON FOR RENAL CONSULTATION: End-stage renal disease, for continuation of the hemodialysis. HISTORY OF PRESENT ILLNESS: The patient is a 46-year-old middle-aged obese -[place] male with a past medical history significant for long-standing hypertension, diabetes, bipolar disorder, end-stage renal disease, multidrug resistant organism, Klebsiella pneumoniae bacteremia and endocarditis, and fungemia, was recently admitted from [facility] to [facility] rehab and the patient was sent from the dialysis unit on 01/16/2017 with fever, chills , altered mental status and found to have gram-negative bacilli and identified as Klebseilla pneumonia, multidrug resistant organism sensitive to tigecycline and status post removal of the right femoral vein Perm-A-Cath and using left upper extremity AV fistula. The patient is feeling better, not in acute distress. Denies any chest pain, palpitations. Denies any fever or cough. No abdominal pain. No nausea, vomiting, diarrhea. The patient underwent hemodialysis today, had ultrafiltration about 2.3 liters. PHYSICAL EXAMINATION: VITAL SIGNS: As follows: Blood pressure 159/86, pulse 93, respirations 20, temperature 98.8, and height is 5 feet 11 inches and weight is 234 pounds. GENERAL: The patient is a 46-year-old middle-aged -[place] male, well built, well nourished, not in acute distress. HEENT: Pupils normal, reactive to light and accommodation. Conjunctivae pink. Sclerae anicteric. Tongue is moist. NECK: Trachea midline. LUNGS: Symmetric on both sides. Bilateral breath sounds present. Clear on auscultation. CARDIOVASCULAR: Blum in the fifth intercostal space midclavicular line. S1 and S2 audible. No murmur or gallop. ABDOMEN: Normal in appearance, soft, tympanic. No guarding, no rigidity. No hepatosplenomegaly. CENTRAL NERVOUS SYSTEM: The patient is alert, awake, oriented x 3, nonfocal on examination. Cranial nerves II-XII grossly intact. Cerebellar system is grossly within normal limits. Motor power 4/5 in both lower extremities, upper extremity 5/5. CURRENT MEDICATIONS: Include as follows: Carafate 1 gram p.o. q. 8 hours, Colace 100 mg p.o. b.i.d., Florastor 250 mg p.o. b.i.d., Lac-Hydrin lotion, morphine 2 mg IV q. 4 hours p.r.n., Nephro-Vladislav 1 tablet daily, Norvasc 5 mg p.o. daily, Pepcid 20 mg p.o. b.i.d., Reglan 10 mg p.o. q. 6 hours p.r.n., Synthroid 75 mcg daily, tigecycline 50 mg q. 12 hours, Tylenol and Zofran 4 mg IV q. 6 hours p.r.n. LABORATORY DATA: Include as follows: As of 01/28/2017, WBC 4.2, hemoglobin 9.6 , hematocrit is 29.2, platelets 50. Sodium is 129, potassium 3.7, chloride 96, CO2 22, BUN 26, creatinine 5.9, glucose is 117, calcium is 7.9, total bili 1.1, AST 69, ALT 42, alkaline phosphatase 565, total protein 6.6, albumin is 2.2. SUMMARY: The patient is a 46-year-old middle-aged male with bipolar disorder, hypertension, diabetes, end-stage renal disease, endocarditis, fungemia. Was admitted with fever, chills on 01/16/2017 and blood culture was growing Klebsiella pneumoniae, multi-resistant drug organism, sensitive to tigecycline, status post removal of the Perm-A-Cath. 1. End-stage renal disease. Continue hemodialysis 3 times a week -- Wednesday, , Wednesday. The patient underwent hemodialysis today without any complications, had UF for about 2.3 liters. The patient has slight bleeding from the AV fistula after dialysis this afternoon. 2. Pancytopenia. WBC count, H and H, and platelets are slowly improving. Source etiology is not clear, rule out bone marrow suppression secondary to infection, rule out drug-induced, rule out immunocompromised state. 3. Hypertension. Blood pressure is stable. Increase Norvasc to 7.5 mg p.o. daily. 4. Gram-negative sepsis secondary to Klebsiella pneumoniae, multi-resistant drug organism. Continue tigecycline as per Dr. Crane and the patient is refusing to remove the PICC line. 5. Hypoalbuminemia. Add Nepro 1 can p.o. daily and Boost 30 mL p.o. daily. We will follow with you. Thank you for allowing me to participate in your patient's care and for possible discharge to custodial in a.m. Lakhwinder Alcazar MD cc: [phone] TT: 01/28/2017 23:36:13 Confirmation # [id number] Dictation # [id number] ln MTDD
[2017-01-29] MEDS: Tigecycline 50 MG in Dextrose 5% In Water 100 ML IV SCH ×2 (04:49→16:43)
[2017-01-29] MEDS: Levothyroxine 75 MCG TAB PO SCH (06:25)
[2017-01-29 07:35] LABS: BASO % 0.7 % (0.0-2.0); EOS # 0.1 K/uL (0.0-0.7); EOS % 2.8 % (0.0-4.0); HEMATOCRIT 27.8 % (35.0-51.0); LYMPH # 1.1 K/uL (1.0-4.3); LYMPH % 28.1 % (20.0-40.0); MEAN CELL VOLUME 90.3 fL (80.0-94.0); MEAN CORPUSCULAR HEMOGLOBIN 29.5 pg (27.0-31.0); MEAN CORPUSCULAR HGB CONC 32.7 g/dL (33.0-37.0); MEAN PLATELET VOLUME 8.6 fL (7.2-11.7); MONO # 0.8 K/uL (0.0-0.8); MONO % 20.3 % (0.0-10.0); NRBC % 0.5 % (0.0-2.0); PLATELET COUNT 37 K/uL (130-400); RED CELL DISTRIBUTION WIDTH 21.3 % (11.5-14.5)
[2017-01-29 08:01] LABS: POTASSIUM 3.5 mmol/L (3.6-5.2)
[2017-01-29] MEDS: (Novolog) Insulin Aspart, Recombinant 100 u/ml 10 ml vial SC SCH ×3 (08:01→16:30)
[2017-01-29 08:03] LABS: ALB/GLOB RATIO 0.5 (1.0-2.1); TOTAL PROTEIN 6.4 g/dL (6.3-8.3)
[2017-01-29 08:04] LABS: CALCIUM 7.5 mg/dl (8.6-10.4)
[2017-01-29 09:11] LABS: EOSINOPHIL 2 % (0-4); NEUTROPHIL 56 % (50-75); TOTAL CELLS COUNTED 100
[2017-01-29] MEDS: Multivitamin Vitamin B Complex (Nephro-Vite) Tab PO SCH (10:27)
[2017-01-29] MEDS: Saccharomyces Boulardi 250 mg Cap PO SCH ×2 (10:27→17:38)
[2017-01-29] MEDS: Ammonium Lactate 12% Lotion (225 g) EXT SCH (10:29)
--- NOTE | 2017-01-29 13:32 | PN ---
DATE: 01/29/2017 ROOM: 361 This is a 46-year-old male with recent uncontrolled type 2 diabetes with end-stage renal disease and dialysis dependence, and is now being followed closely for metabolic management for both diabetes and hypothyroidism as noted thereof. His glycemic levels, however, are quite low because of the variable and suboptimal oral intake at thi s time and the glucose levels have ranged from 88-105 mg/dL. His chemistry showed a BUN of 17, sodiu m 130, potassium 3.5, chloride 95, CO2 27, glucose 81 and creatinine 4.4. So at this time, we will continue the levothyroxine given at a low dose of 75 mcg once daily as order ed. We will obtain serial thyroid studies and titrate his dose regimen accordingly. At this time, alton ramirez is only on a low-dose correction scale using NovoLog insulin as indicated and so far, he has had no insulin requirements thereof. We will obtain serial chemistries and supplement accordingly as liliya bone. We will follow. Nataly Aragon MD cc: [id number] TT: 01/29/2017 13:32:17 Confirmation # [id number] Dictation # [id number] en
--- NOTE | 2017-01-29 16:44 | CP.PCM.PN ---
Subjective - Date & Time of Evaluation Date of Evaluation: 01/29/17 Time of Evaluation: 16:44 - Subjective Subjective: awake , alert, NAD. Objective - Vital Signs/Intake and Output Vital Signs (last 24 hours): Temp Pulse Resp BP Pulse Ox 99 F 83 20 148/90 97 01/29/17 08:00 01/29/17 08:00 01/29/17 08:00 01/29/17 08:00 01/29/17 08:00 Intake and Output: 01/29/17 01/29/17 06:59 18:59 Intake Total 840 480 Output Total 1 Balance 840 479 - Medications Medications: Current Medications Acetaminophen (Tylenol 325mg Tab) 650 mg PO Q6 PRN PRN Reason: Fever >100.4 F Amlodipine Besylate (Norvasc) 5 mg PO DAILY [facility] Last Admin: 01/29/17 10:27 Dose: 5 mg Docusate Sodium (Colace) 100 mg PO BID [facility] Last Admin: 01/29/17 10:26 Dose: 100 mg Famotidine (Pepcid) 20 mg PO BID [facility] Last Admin: 01/29/17 10:27 Dose: 20 mg Tigecycline 50 mg/ Dextrose 100 mls @ 100 mls/hr IV Q12H [facility] Last Admin: 01/29/17 04:49 Dose: 100 mls/hr Insulin Aspart (Novolog) 0 unit SC ACHS [facility] PRN Reason: Protocol Last Admin: 01/29/17 11:37 Dose: Not Given Lactic Acid (Lac-Hydrin 12% Lotion (225 G)) 0 gm EXT DAILY [facility] Last Admin: 01/29/17 10:29 Dose: Not Given Levothyroxine Sodium (Synthroid) 75 mcg PO DAILY@0630 [facility] Last Admin: 01/29/17 06:25 Dose: 75 mcg Metoclopramide HCl (Reglan) 10 mg PO Q6H PRN PRN Reason: Nausea/Vomiting Last Admin: 01/17/17 09:42 Dose: 10 mg Morphine Sulfate (Morphine) 2 mg IVP Q4 PRN PRN Reason: Pain, moderate (4-7) Last Admin: 01/29/17 13:23 Dose: 2 mg Ondansetron HCl (Zofran Inj) 4 mg IVP Q6H PRN PRN Reason: Nausea/Vomiting Last Admin: 01/29/17 12:03 Dose: 4 mg Saccharomyces Boulardii (Florastor) 250 mg PO BID [facility] Last Admin: 01/29/17 10:27 Dose: 250 mg Sucralfate (Carafate Tab) 1 gm PO Q8H [facility] Last Admin: 01/29/17 10:27 Dose: 1 gm Vitamin B Complex/Vit C/Folic Acid (Nephro-Vladislav) 1 tab PO DAILY [facility] Last Admin: 01/29/17 10:27 Dose: 1 tab - Labs Labs: 01/29/17 07:20 01/29/17 07:20 PT 15.5 SECONDS (9.7-12.2) H 01/27/17 08:44 INR 1.3 01/27/17 08:44 APTT 55 SECONDS (21-34) H 01/18/17 11:27 Assessment and Plan - Assessment and Plan (Free Text) Assessment: Patient is seen and examined. Alert, oriented x3, NAD. Scheduled to be transferred to [facility] this evening. D/W DR Crane that he needs to see him before he leave today. Will continue with tygacil for 7 more days.
--- NOTE | 2017-01-29 16:48 | CP.PCM.PN ---
Subjective - Date & Time of Evaluation Date of Evaluation: 01/29/17 Time of Evaluation: 09:00 - Subjective Subjective: awake ,alert and NAD Objective - Vital Signs/Intake and Output Vital Signs (last 24 hours): Temp Pulse Resp BP Pulse Ox 99 F 83 20 148/90 97 01/29/17 08:00 01/29/17 08:00 01/29/17 08:00 01/29/17 08:00 01/29/17 08:00 Intake and Output: 01/29/17 01/29/17 06:59 18:59 Intake Total 840 480 Output Total 1 Balance 840 479 - Medications Medications: Current Medications Acetaminophen (Tylenol 325mg Tab) 650 mg PO Q6 PRN PRN Reason: Fever >100.4 F Amlodipine Besylate (Norvasc) 5 mg PO DAILY [facility] Last Admin: 01/29/17 10:27 Dose: 5 mg Docusate Sodium (Colace) 100 mg PO BID [facility] Last Admin: 01/29/17 10:26 Dose: 100 mg Famotidine (Pepcid) 20 mg PO BID [facility] Last Admin: 01/29/17 10:27 Dose: 20 mg Tigecycline 50 mg/ Dextrose 100 mls @ 100 mls/hr IV Q12H [facility] Last Admin: 01/29/17 16:43 Dose: 100 mls/hr Insulin Aspart (Novolog) 0 unit SC ACHS [facility] PRN Reason: Protocol Last Admin: 01/29/17 11:37 Dose: Not Given Lactic Acid (Lac-Hydrin 12% Lotion (225 G)) 0 gm EXT DAILY [facility] Last Admin: 01/29/17 10:29 Dose: Not Given Levothyroxine Sodium (Synthroid) 75 mcg PO DAILY@0630 [facility] Last Admin: 01/29/17 06:25 Dose: 75 mcg Metoclopramide HCl (Reglan) 10 mg PO Q6H PRN PRN Reason: Nausea/Vomiting Last Admin: 01/17/17 09:42 Dose: 10 mg Morphine Sulfate (Morphine) 2 mg IVP Q4 PRN PRN Reason: Pain, moderate (4-7) Last Admin: 01/29/17 13:23 Dose: 2 mg Ondansetron HCl (Zofran Inj) 4 mg IVP Q6H PRN PRN Reason: Nausea/Vomiting Last Admin: 01/29/17 12:03 Dose: 4 mg Saccharomyces Boulardii (Florastor) 250 mg PO BID [facility] Last Admin: 01/29/17 10:27 Dose: 250 mg Sucralfate (Carafate Tab) 1 gm PO Q8H [facility] Last Admin: 01/29/17 10:27 Dose: 1 gm Vitamin B Complex/Vit C/Folic Acid (Nephro-Vladislav) 1 tab PO DAILY [facility] Last Admin: 01/29/17 10:27 Dose: 1 tab - Labs Labs: 01/29/17 07:20 01/29/17 07:20 PT 15.5 SECONDS (9.7-12.2) H 01/27/17 08:44 INR 1.3 01/27/17 08:44 APTT 55 SECONDS (21-34) H 01/18/17 11:27 - Constitutional Appears: Well - Head Exam Head Exam: ATRAUMATIC, NORMAL INSPECTION, NORMOCEPHALIC - Eye Exam Eye Exam: EOMI, Normal appearance, PERRL Pupil Exam: NORMAL ACCOMODATION, PERRL - ENT Exam ENT Exam: Mucous Membranes Moist, Normal Exam - Neck Exam Neck Exam: Full ROM, Normal Inspection. absent: Lymphadenopathy - Respiratory Exam Respiratory Exam: Decreased Breath Sounds - Cardiovascular Exam Cardiovascular Exam: REGULAR RHYTHM, +S1, +S2 - GI/Abdominal Exam GI & Abdominal Exam: Soft, Diminished Bowel Sounds - Rectal Exam Rectal Exam: Deferred Assessment and Plan - Assessment and Plan (Free Text) Plan: Scheduled to be transferred to [facility] continue tygacil for 7 days
[2017-01-29 18:45] VITALS: BP 138/91; PULSE 88; TEMP 98.7; O2SAT 95
[2017-01-29 18:46] VITALS: RESP 19
--- NOTE | 2017-01-29 18:59 | CP.PCM.PN ---
Subjective - Date & Time of Evaluation Date of Evaluation: 01/29/17 Time of Evaluation: 09:00 - Subjective Subjective: pt marlyn hx of hiv PCR is negative possible fals + advised to repeat Hep A + informed cont iv rx Objective - Vital Signs/Intake and Output Vital Signs (last 24 hours): Temp Pulse Resp BP Pulse Ox 98.7 F 88 19 138/91 H 95 01/29/17 15:00 01/29/17 15:00 01/29/17 15:00 01/29/17 15:00 01/29/17 15:00 Intake and Output: 01/29/17 01/29/17 06:59 18:59 Intake Total 840 480 Output Total 1 Balance 840 479 - Medications Medications: Current Medications Acetaminophen (Tylenol 325mg Tab) 650 mg PO Q6 PRN PRN Reason: Fever >100.4 F Amlodipine Besylate (Norvasc) 5 mg PO DAILY [facility] Last Admin: 01/29/17 10:27 Dose: 5 mg Docusate Sodium (Colace) 100 mg PO BID [facility] Last Admin: 01/29/17 17:38 Dose: 100 mg Famotidine (Pepcid) 20 mg PO BID [facility] Last Admin: 01/29/17 17:39 Dose: 20 mg Tigecycline 50 mg/ Dextrose 100 mls @ 100 mls/hr IV Q12H [facility] Last Admin: 01/29/17 16:43 Dose: 100 mls/hr Insulin Aspart (Novolog) 0 unit SC ACHS [facility] PRN Reason: Protocol Last Admin: 01/29/17 16:30 Dose: Not Given Lactic Acid (Lac-Hydrin 12% Lotion (225 G)) 0 gm EXT DAILY [facility] Last Admin: 01/29/17 10:29 Dose: Not Given Levothyroxine Sodium (Synthroid) 75 mcg PO DAILY@0630 [facility] Last Admin: 01/29/17 06:25 Dose: 75 mcg Metoclopramide HCl (Reglan) 10 mg PO Q6H PRN PRN Reason: Nausea/Vomiting Last Admin: 01/17/17 09:42 Dose: 10 mg Morphine Sulfate (Morphine) 2 mg IVP Q4 PRN PRN Reason: Pain, moderate (4-7) Last Admin: 01/29/17 17:31 Dose: 2 mg Ondansetron HCl (Zofran Inj) 4 mg IVP Q6H PRN PRN Reason: Nausea/Vomiting Last Admin: 01/29/17 12:03 Dose: 4 mg Saccharomyces Boulardii (Florastor) 250 mg PO BID [facility] Last Admin: 01/29/17 17:38 Dose: 250 mg Sucralfate (Carafate Tab) 1 gm PO Q8H [facility] Last Admin: 01/29/17 17:39 Dose: 1 gm Vitamin B Complex/Vit C/Folic Acid (Nephro-Vladislav) 1 tab PO DAILY [facility] Last Admin: 01/29/17 10:27 Dose: 1 tab - Labs Labs: 01/29/17 07:20 01/29/17 07:20 PT 15.5 SECONDS (9.7-12.2) H 01/27/17 08:44 INR 1.3 01/27/17 08:44 APTT 55 SECONDS (21-34) H 01/18/17 11:27 Assessment and Plan (1) Fever Status: Acute (2) HIV antibody positive Status: Suspected (3) Pancytopenia Status: Acute (4) HTN (hypertension) Status: Acute (5) Diabetes Status: Acute (6) Hypothyroidism Status: Acute
--- NOTE | 2017-02-01 08:23 | PN ---
DATE: 01/22/2017 hypothyroidism thyroid studies showed 8.28 with a free T4 of 2.18. His TSH is 6.[address] on continuous as noted . Nataly Aragon MD cc: [id number] TT: 01/22/2017 18:42:59 Confirmation # [id number] Dictation # [id number]
[2017-02-03 05:11] LABS: HIV-1 GENOTYPE NOT DETECTED
== END 2017-01-29 19:45 | DRG 871 ==
LOC: C.ER 14:20 → C.9E 17:06 → C.3T 20:45 → C.5T 01-17 18:48 → C.6T 01-19 18:16 → C.3T 01-24 14:34
PROVIDERS: ADMIT Internal Medicine Nephrology; ATTEND Internal Medicine Nephrology
PROC: 5A1D60Z (ICD-10-PCS; principal; 2017-01-19)
PROC: 30233N1 Transfusion of Nonautologous Red Blood Cells into Peripheral Vein, Percutaneous Approach (ICD-10-PCS; 2017-01-19)
PROC: 07DR3ZX Extraction of Iliac Bone Marrow, Percutaneous Approach, Diagnostic (ICD-10-PCS; 2017-01-22)
PROC: 0DB88ZX Excision of Small Intestine, Via Natural or Artificial Opening Endoscopic, Diagnostic (ICD-10-PCS; 2017-01-27)
DX: A41.59 Other Gram-negative sepsis (principal); N18.6 End stage renal disease; G93.41 Metabolic encephalopathy; D61.818 Other pancytopenia; D68.9 Coagulation defect, unspecified; I13.11 Hypertensive heart and chronic kidney disease without heart failure, with stage 5 chronic kidney disease, or end stage renal disease; T82.49XA Other complication of vascular dialysis catheter, initial encounter; E87.1 Hypo-osmolality and hyponatremia; R65.20 Severe sepsis without septic shock; E11.22 Type 2 diabetes mellitus with diabetic chronic kidney disease; E11.319 Type 2 diabetes mellitus with unspecified diabetic retinopathy without macular edema; K75.9 Inflammatory liver disease, unspecified; Z79.4 Long term (current) use of insulin; F31.9 Bipolar disorder, unspecified; E78.5 Hyperlipidemia, unspecified; I35.8 Other nonrheumatic aortic valve disorders; E66.9 Obesity, unspecified; Z68.31 Body mass index [BMI] 31.0-31.9, adult; D63.1 Anemia in chronic kidney disease; Z99.2 Dependence on renal dialysis; Y84.1 Kidney dialysis as the cause of abnormal reaction of the patient, or of later complication, without mention of misadventure at the time of the procedure; E06.3 Autoimmune thyroiditis; R16.1 Splenomegaly, not elsewhere classified; E11.65 Type 2 diabetes mellitus with hyperglycemia; R75 Inconclusive laboratory evidence of human immunodeficiency virus [HIV]; K29.70 Gastritis, unspecified, without bleeding; K29.80 Duodenitis without bleeding